=== PATIENT | female | born 1945 | race Caucasian/White ===

== ENCOUNTER → 2018-04-15 07:27 | Outpatient (CLI) | payer OTHER, SELFPAY ==
[2018-04-15 09:43] LABS: Alanine Aminotransferase 28 IU/L (9-52); Albumin 4.1 g/dL (3.5-5.0); Albumin Globulin Ratio 1.6 (1.0-2.8); Alkaline Phosphatase 50 U/L (38-126); Aspartate Aminotransferase 19 IU/L (14-36); BUN Creatinine Ratio 22.9 (6-22); Bilirubin Total 0.3 mg/dL (0.2-1.3); Blood Urea Nitrogen 16 mg/dL (7-17); Calcium 9.8 mg/dL (8.4-10.2); Carbon Dioxide 34 mmol/L (22-32); Chloride 104 mmol/L (98-107); Cholesterol 151 mg/dL (140-199); Estimated Glomerular Filt Rate > 60.0 mL/min (>60); Globulin 2.5 g/dL (1.7-4.1); Glucose 93 mg/dL (80-110); HDL Cholesterol 65 mg/dL (40-60); HEMOLYSIS < 15 (0-50); LDL Cholesterol Calculated 77 mg/dL (<100); Potassium 5.3 mmol/L (3.4-5.1); Sodium 145 mmol/L (137-145); Total Protein 6.6 g/dL (6.3-8.2); Triglycerides 46 mg/dL (35-150)
== END ==
PROVIDERS: PCP Family Medicine; Visit Provider Family Medicine
DX: Z79.899 Other long term (current) drug therapy (principal); E78.5 Hyperlipidemia, unspecified
CPT/HCPCS: 36415; 80053; 80061

== ENCOUNTER → 2018-12-25 10:29 | Outpatient (CLI) | payer OTHER, SELFPAY | PROVIDERS: PCP Student in an Organized Health Care Education/Training Program; Visit Provider Student in an Organized Health Care Education/Training Program | DX: Z13.820 Encounter for screening for osteoporosis (principal); M85.832 Other specified disorders of bone density and structure, left forearm; Z78.0 Asymptomatic menopausal state | CPT/HCPCS: 77080 ==

== ENCOUNTER 2019-04-06 09:22 | Emergency (ER) | payer OTHER, SELFPAY ==
[2019-04-06 09:39] VITALS: BP 125/101; PULSE 80; RESP 18; TEMP 36.7; O2SAT 100
--- NOTE | 2019-04-06 10:09 | DI.CT.S_ITS ---
PROCEDURE: CT HEAD/BRAIN WO CON INDICATIONS: headache w/ nausea and vomiting, remote h/o trauma TECHNIQUE: Noncontrast 4.5 mm thick angled axial sections acquired from the foramen magnum to the vertex, with coronal and sagittal reformats. For radiation dose reduction, the following was used: automated exposure control, adjustment of mA and/or kV according to patient size. COMPARISON: None. FINDINGS: Image quality: Excellent. There is large right frontoparietal extra-axial hemorrhage, probably subdural in nature. This measures up to 2.0 cm in maximum thickness. There is mixed attenuation, with acute blood seen on image 20 series 2 and possibly subacute blood in the remainder of the collection. There is associated mass effect and leftward midline shift measuring approximately 5 mm. Basal cisterns remain grossly patent. There is partial effacement of the right frontal horn. Skull and face: Calvarium and visualized facial bones appear intact, without suspicious lesions. Sinuses: Visualized sinuses and mastoids are clear. IMPRESSION: Large right frontoparietal subdural hematoma, with mixed attenuation suggesting acute on possibly subacute age. Associated mass effect and leftward midline shift as above. Partial effacement of the right frontal horn. Critical findings were personally telephoned and discussed with Dr. Jacobsen in the emergency department at 1017 hours on 04/06/19. Dictated by: Gamal Funes M.D. on 04/06/2019 at 10:13 Approved by: Gamal Funes M.D. on 04/06/2019 at 10:19
--- NOTE | 2019-04-06 10:12 | ED_ITS ---
HPI - Headache General Chief Complaint: Headache Stated Complaint: bad headache,throwing up Time Seen by Provider: 04/06/19 09:51 Source: patient Mode of arrival: ambulatory Limitations: no limitations History of Present Illness HPI Narrative: Patient is 73-year-old female on Pradaxa for atrial fibrillation presenting with headache and nausea. She actually states that 2 months ago she fell backwards striking her head quite hard she says she did not pass had a that time but she had persistent vomiting at which time she passed out she said twice while vomiting. She was not evaluated at that time she has not had any headaches since then. She started having headaches about 5 days ago she was in [place] she had to travel back to [place] cause her was just in the hospital. Headache has progressively gotten worse today she was nauseous and throughout. She has no weakness in she got some numbness and tingling in her fingertips no vision changes no facial drooping. She denies any chest pain or shortness of breath. Related Data Home Medications Medication Instructions Recorded Confirmed Probiotic 1 cap PO DAILY #0 07/26/17 04/06/19 digestive enzymes 1 cap PO AC #0 08/16/17 04/06/19 atorvastatin 20 mg tablet 20 mg PO QPM 02/04/18 04/06/19 Resmed Airsense 10 CPAP #1 ea 12/25/18 04/06/19 dofetilide 250 mcg capsule 250 mcg PO Q12H cap 12/25/18 04/06/19 Calcium With D 1 tab PO BID 04/06/19 04/06/19 acetaminophen 1,000 mg PO Q6H PRN 04/06/19 04/06/19 diltiazem HCl 180 mg PO DAILY 04/06/19 04/06/19 metronidazole 1 applic TOPICAL BID 04/06/19 04/06/19 Previous Rx's Medication Instructions Recorded dabigatran etexilate 150 mg capsule 150 mg PO BID #180 cap 12/08/18 Allergies Allergy/AdvReac Type Severity Reaction Status Date / Time lactose Allergy Unknown Verified 04/06/19 09:42 Review of Systems Review of Systems ROS Unobtainable: All systems reviewed & are unremarkable except as noted in HPI and below Constitutional Denies chills, Denies fever(s), Reports headache(s), Denies lethargy and Reports weakness ENT Ears, Nose, Mouth, and Throat: Denies change in voice, Denies vertigo, Denies dizziness, Reports headache(s), Denies neck pain and Denies sore throat Cardiovascular Reports irregular heart rhythm, Denies dyspnea and Denies dyspnea on exertion Respiratory Denies cough, Denies dyspnea, Denies dyspnea on exertion and Denies wheezing Gastrointestinal Gastrointestinal: Denies abdominal pain, Denies change in bowel habits, Denies diarrhea, Reports nausea and Reports vomiting Genitourinary Denies hematuria, Denies flank pain, Denies urinary incontinence and Denies urinary urgency Musculoskeletal Denies neck pain, Denies numbness and Reports tingling Integumentary/Breasts Denies pruritus, Denies erythema, Denies rash and Denies wounds Neurologic Denies confusion, Denies vertigo, Denies dizziness, Reports headache(s), Denies numbness, Reports tingling, Denies tremor(s) and Reports weakness Psychiatric Denies confusion Allergic/Immunologic Denies wheezing [facility] Medical History Obstructive sleep apnea of adult (Chronic) Primary insomnia (Chronic) Snoring (Inactive ~1995) Insomnia (Chronic 11/29/16) GERD (gastroesophageal reflux disease) (Chronic) Heart palpitations (Chronic 2005) Hyperlipidemia (Chronic) Rosacea (Chronic) Scoliosis (Chronic 1961) Surgical History History of left cataract surgery (Resolved 11/12/12) History of right cataract surgery (Resolved 10/29/12) History of spinal surgery (Resolved 1961) Family History Father Heart disease Mother Pneumonia Brother No problems noted. Sister No problems noted. Family/Other No problems noted. Family/Other No problems noted. Social History Smoking Status: Never smoker alcohol intake: current Family History Father Heart disease Mother Pneumonia Brother No problems noted. Sister No problems noted. Family/Other No problems noted. Family/Other No problems noted. Social History Smoking Status: Never smoker alcohol intake: current Exam Initial Vital Signs Initial Vital Signs: Vital Signs Temperature 98.1 F 04/06/19 09:39 Pulse Rate 80 04/06/19 09:39 Respiratory Rate 18 04/06/19 09:39 Blood Pressure 125/101 H 04/06/19 09:39 Pulse Oximetry 100 04/06/19 09:39 GENERAL: Alert female and in no acute distress. HEENT: Head atraumatic, no abrasions no crepitations no depression EOMI, pupils reactive, face symmetric, CARDIOVASCULAR: Regular rate and rhythm without murmurs, rubs or gallops. RESPIRATORY: Breath sounds equal bilaterally, no wheezes rales or rhonchi. ABDOMEN: Soft, nontender. Normoactive bowel sounds all 4 quadrants. No guarding or rebound. EXTREMITIES: Normal range of motion, no clubbing or edema. Neurovascularly intact NEUROLOGICAL: Alert and oriented x4.Normal gait and speech. Cranial nerves II through XII grossly intact. Good [id number]-[id number], good qyec-pr-crct, strength equal bilaterally, no dysarthria or aphasia, sensation in tact to soft touch bilaterally, no visual changes, no facial droop SKIN: Warm, dry, no laceration, no petechiae, no rashes or lesions. Scores NIH Stroke Scale Level of Conciousness: Alert, keenly responsive Ask month/age: Answers both questions correctly. Open/close eyes, close hand: Performs both tasks correctly Best gaze horizontal: Normal Visual hooper: No visual loss Facial palsy: Normal symetrical movement Left arm drift: No drift for full 10 sec Right arm drift: No drift for full 10 sec Left leg drift: No drift for full 10 sec Right leg drift: No drift for full 10 sec Limb ataxia: Absent Sensory on face/arms/legs: Normal, no sensory loss Best language: No aphasia, normal Dysarthria: Normal Extinction or inattention: No abnormality Total NIH Stroke scale score: 0 Course Orders Ordered: ED Orders 04/06/19 10:09 CT head/brain wo con Stat 04/06/19 10:25 Complete Blood Count AUTO DIFF Stat Comprehensive Metabolic Panel Stat Partial Thromboplastin Time Stat Prothrombin Time INR Stat Discontinued Medications Hydromorphone HCl (Dilaudid) 0.5 mg IV NOW ONE Stop: 04/06/19 10:13 Last Admin: 04/06/19 11:03 Dose: 0.5 mg Sodium Chloride (Normal Saline 0.9%) 1,000 mls @ 1,000 mls/hr IV BOLUS ONE Stop: 04/06/19 11:11 Last Infusion: 04/06/19 11:17 Dose: 1,000 mls/hr Admin: 04/06/19 10:55 Dose: 1,000 mls/hr Idarucizumab (Praxbind) 5 gm IV NOW ONE Stop: 04/06/19 10:31 Last Admin: 04/06/19 10:44 Dose: 5 gm Ondansetron HCl (Zofran) 4 mg IV NOW ONE Stop: 04/06/19 10:13 Last Admin: 04/06/19 11:03 Dose: 4 mg Vital Signs - 8 hr 04/06/19 11:02 Pulse Rate 78 Respiratory Rate 15 Blood Pressure [Right Arm] 134/79 Pulse Oximetry 98 MDM - Headache Lab Data Attestation: I reviewed the patient's lab results. Result diagrams: 04/06/19 10:25 04/06/19 10:25 Lab Results 04/06/19 04/06/19 04/06/19 Range/Units 10:25 10:25 10:25 WBC 8.3 (4.5-11.0) X10^3/uL RBC 4.45 (4.0-5.2) X10^6/uL Hgb 12.8 (12.0-16.0) g/dL Hct 39.1 (36-46) % MCV 87.7 (80-100) fL MCH 28.8 (26-34) PG MCHC 32.9 (30-36) % RDW 14.7 (11.6-14.8) % Plt Count 205 (150-400) X10^3/uL Neut % (Auto) 85.2 H (50-75) % Lymph % (Auto) 10.3 L (25-40) % [place] % (Auto) 4.0 (3-14) % Eos % (Auto) 0.1 L (2-4) % Baso % (Auto) 0.4 (0-2) % Neut # (Auto) 7100 H (9160-4576) /uL Lymph # (Auto) 900 L (5078-6532) /uL [place] # (Auto) 300 (0-900) /uL Eos # (Auto) 0 (0-450) /uL Baso # (Auto) 0 (0-100) /uL PT 14.1 H (10.1-12.7) SECONDS INR 1.2 (0.9-1.3) APTT 43 H (26.4-36.2) SECONDS Sodium 138 (137-145) mmol/L Potassium 3.8 (3.4-5.1) mmol/L Chloride 100 (98-107) mmol/L Carbon Dioxide 27 (22-32) mmol/L BUN 14 (7-17) mg/dL Creatinine 0.70 (0.52-1.04) mg/dL Estimated GFR > 60.0 (>60) mL/min BUN/Creatinine Ratio 20.0 (6-22) Glucose 120 H (80-110) mg/dL Calcium 9.3 (8.4-10.2) mg/dL Total Bilirubin 0.5 (0.2-1.3) mg/dL AST 15 (14-36) IU/L ALT 21 (9-52) IU/L Alkaline Phosphatase 50 (38-126) U/L Total Protein 7.1 (6.3-8.2) g/dL Albumin 4.2 (3.5-5.0) g/dL Globulin 2.9 (1.7-4.1) g/dL Albumin/Globulin Ratio 1.4 (1.0-2.8) Imaging Data CT scan - head: Radiologist's impression: PROCEDURE: CT HEAD/BRAIN WO CON INDICATIONS: headache w/ nausea and vomiting, remote h/o trauma TECHNIQUE: Noncontrast 4.5 mm thick angled axial sections acquired from the foramen magnum to the vertex, with coronal and sagittal reformats. For radiation dose reduction, the following was used: automated exposure control, adjustment of mA and/or kV according to patient size. COMPARISON: None. FINDINGS: Image quality: Excellent. There is large right frontoparietal extra-axial hemorrhage, probably subdural in nature. This measures up to 2.0 cm in maximum thickness. There is mixed attenuation, with acute blood seen on image 20 series 2 and possibly subacute blood in the remainder of the collection. There is associated mass effect and leftward midline shift measuring approximately 5 mm. Basal cisterns remain grossly patent. There is partial effacement of the right frontal horn. Skull and face: Calvarium and visualized facial bones appear intact, without suspicious lesions. Sinuses: Visualized sinuses and mastoids are clear. IMPRESSION: Large right frontoparietal subdural hematoma, with mixed attenuation suggesting acute on possibly subacute age. Associated mass effect and leftward midline shift as above. Partial effacement of the right frontal horn. Critical findings were personally telephoned and discussed with Dr. Jacobsen in the emergency department at 1017 hours on 04/06/19. Dictated by: Gamal Funes M.D. on 04/06/2019 at 10:13 Approved by: Gamal Funes M.D. on 04/06/2019 at 10:19 MDM Narrative Medical decision making narrative: Dr. Anaya at [place] ED has been updated on patient's neurologic status and head CT results. Request praxabind, and [facility] ppily accepts patient for transfer. Praxabind started in ED. Airlift was called patient has 5 mm of shift discussed with patient mode of transport air lift in [place] agrees to go by airlift Critical Care Time Critical Care Time: Yes Total Critical Care Time: 30 Attestation: The high probability of a clinically significant, sudden or life threatening deterioration of the neurovascular system(s) required my full and direct attention, intervention and personal management. The aggregate critical care time was [45] minutes. This time is in addition to time spent performing reported procedures but includes the following: [x] Data Review and interpretation [x] Patient assessment and monitoring of vital signs [x] Documentation [x] Medication orders and management Discharge Plan Departure Patient Disposition: [facility] Clinical Impression: Intracranial hemorrhage Discharge Date/Time: 04/06/19 11:17 Interventions: ED Discharge Assessment Last Done: 04/06/19 11:16 Prescriptions: No Action Probiotic 1 cap PO DAILY Qty: 0 RF: 0 digestive enzymes 1 cap PO AC Qty: 0 RF: 0 Pradaxa 150 mg capsule 150 mg PO BID Qty: 180 RF: 1 diltiazem HCl 180 mg Capsule,Extended Release 24hr 180 mg PO DAILY RF: 0 metronidazole 1 % Gel 1 applic TOPICAL BID RF: 0 acetaminophen 500 mg Capsule 1,000 mg PO Q6H PRN (Reason: Headache) RF: 0 Calcium With D 1 tab PO BID RF: 0 atorvastatin 20 mg tablet 20 mg PO QPM RF: 0 dofetilide 250 mcg capsule 250 mcg PO Q12H RF: 0 Resmed Airsense 10 CPAP Qty: 1 RF: 0 Referrals: Anthony Walton MD [Primary Care Provider] -
[2019-04-06 10:29] VITALS: BP 134/69; PULSE 81; RESP 18; O2SAT 98
[2019-04-06 10:35] LABS: Add Manual Diff / Slide Review NO; Basophils Absolute Auto 0 /uL (0-100); Basophils Percent Auto 0.4 % (0-2); Eosinophils Absolute Auto 0 /uL (0-450); Eosinophils Percent Auto 0.1 % (2-4); Hematocrit 39.1 % (36-46); Hemoglobin 12.8 g/dL (12.0-16.0); Lymphocytes Absolute Auto 900 /uL (1100-4500); Lymphocytes Percent Auto 10.3 % (25-40); Mean Corpuscular HGB Conc 32.9 % (30-36); Mean Corpuscular Hemoglobin 28.8 PG (26-34); Mean Corpuscular Volume 87.7 fL (80-100); Monocytes Absolute Auto 300 /uL (0-900); Neutrophils Absolute Auto 7100 /uL (1500-7000); Neutrophils Percent Auto 85.2 % (50-75); Platelet Count 205 X10^3/uL (150-400); Red Blood Cell Count 4.45 X10^6/uL (4.0-5.2); Red Cell Distribution Width 14.7 % (11.6-14.8); White Blood Cell Count 8.3 X10^3/uL (4.5-11.0)
[2019-04-06 10:41] LABS: INR 1.2 (0.9-1.3); Prothrombin Time 14.1 SECONDS (10.1-12.7)
[2019-04-06 10:44] LABS: PTT Partial Thromboplastin Tim 43 SECONDS (26.4-36.2)
[2019-04-06] MEDS: IDARUCIZUMAB 2.5 GM/50 ML VIAL 5 GM IV (10:44)
[2019-04-06 10:55] LABS: Alanine Aminotransferase 21 IU/L (9-52); Albumin 4.2 g/dL (3.5-5.0); Albumin Globulin Ratio 1.4 (1.0-2.8); Alkaline Phosphatase 50 U/L (38-126); Aspartate Aminotransferase 15 IU/L (14-36); Bilirubin Total 0.5 mg/dL (0.2-1.3); Blood Urea Nitrogen 14 mg/dL (7-17); Calcium 9.3 mg/dL (8.4-10.2); Carbon Dioxide 27 mmol/L (22-32); Chloride 100 mmol/L (98-107); Estimated Glomerular Filt Rate > 60.0 mL/min (>60); Globulin 2.9 g/dL (1.7-4.1); Glucose 120 mg/dL (80-110); HEMOLYSIS < 15 (0-50); Potassium 3.8 mmol/L (3.4-5.1); Sodium 138 mmol/L (137-145); Total Protein 7.1 g/dL (6.3-8.2)
[2019-04-06] MEDS: SODIUM CHLORIDE 0.9% 1,000 ML 1000 ML IV (10:55)
[2019-04-06 11:02] VITALS: BP 134/79; PULSE 78; RESP 15; O2SAT 98
[2019-04-06] MEDS: HYDROMORPHONE 1 MG INJ 0.5 MG IV (11:03)
[2019-04-06] MEDS: ONDANSETRON 4 MG/2 ML INJ IV (11:03)
== END 2019-04-06 11:17 | disposition short-term general hospital (02) ==
PROVIDERS: Emergency Provider Emergency Medicine; PCP Student in an Organized Health Care Education/Training Program
DX: I62.9 Nontraumatic intracranial hemorrhage, unspecified (principal)
CPT/HCPCS: 36591; 70450; 80053; 85025; 85610; 85730; 96374; 96375; 99283; 99284; J1170; J2405

== ENCOUNTER → 2019-04-28 15:48 | Outpatient (CLI) | payer OTHER, SELFPAY ==
--- NOTE | 2019-04-28 15:51 | DI.CT.S_ITS ---
PROCEDURE: CT HEAD/BRAIN WO CON INDICATIONS: recent subdural hematoma, now having headaches TECHNIQUE: Noncontrast 4.5 mm thick angled axial sections acquired from the foramen magnum to the vertex, with coronal and sagittal reformats. For radiation dose reduction, the following was used: automated exposure control, adjustment of mA and/or kV according to patient size. COMPARISON: [facility], CT, CT HEAD/BRAIN WO CON, 04/06/2019, 9:55. FINDINGS: Image quality: Excellent. CSF spaces: Basal cisterns are patent. No extra-axial fluid collections. The ventricles are symmetric in size and shape. Brain: No intracranial bleeds or masses. There is cerebral volume loss for age, with resultant ventricular and sulcal prominence. There are periventricular and deep white matter chronic small vessel ischemic changes. There is intracranial internal carotid artery atherosclerosis. Skull and face: Calvarium and visualized facial bones appear intact, without suspicious lesions. Right frontal post craniotomy changes. Sinuses: Visualized sinuses and mastoids are clear. IMPRESSION: No acute intracranial process. Dictated by: Gamal Funes M.D. on 04/28/2019 at 16:25 Approved by: Gamal Funes M.D. on 04/28/2019 at 16:29
== END ==
PROVIDERS: Visit Provider Family Medicine
DX: R51 Headache (principal); Z86.79 Personal history of other diseases of the circulatory system
CPT/HCPCS: 70450

== ENCOUNTER → 2020-02-09 07:58 | Outpatient (CLI) | payer OTHER, SELFPAY ==
[2020-02-09 09:55] LABS: Alanine Aminotransferase 28 IU/L (<35); Albumin 4.4 g/dL (3.5-5.0); Albumin Globulin Ratio 1.8 (1.0-2.8); Alkaline Phosphatase 49 U/L (38-126); Aspartate Aminotransferase 25 IU/L (14-36); BUN Creatinine Ratio 33.3 (6-22); Bilirubin Total 0.6 mg/dL (0.2-1.3); Blood Urea Nitrogen 23 mg/dL (7-17); Calcium 9.7 mg/dL (8.4-10.2); Carbon Dioxide 29 mmol/L (22-32); Chloride 102 mmol/L (98-107); Cholesterol 165 mg/dL (140-199); Estimated Glomerular Filt Rate > 60.0 mL/min (>60); Globulin 2.5 g/dL (1.7-4.1); Glucose 98 mg/dL (80-110); HDL Cholesterol 55 mg/dL (40-60); HEMOLYSIS < 15 (0-50); LDL Cholesterol Calculated 89 mg/dL (<100); Potassium 4.4 mmol/L (3.4-5.1); Sodium 139 mmol/L (137-145); Total Protein 6.9 g/dL (6.3-8.2); Triglycerides 103 mg/dL (35-150)
== END ==
PROVIDERS: PCP Nurse Practitioner; Referring Provider Internal Medicine Cardiovascular Disease; Visit Provider Internal Medicine Cardiovascular Disease
DX: I48.0 Paroxysmal atrial fibrillation (principal); E78.00 Pure hypercholesterolemia, unspecified
CPT/HCPCS: 36415; 80053; 80061

== ENCOUNTER → 2020-02-25 08:10 | Outpatient (CLI) | payer OTHER, SELFPAY ==
[2020-02-26 15:40] LABS: Fecal Immunochemical Test Negative (Negative)
== END ==
PROVIDERS: PCP Nurse Practitioner; Referring Provider Nurse Practitioner; Visit Provider Nurse Practitioner
DX: Z12.11 Encounter for screening for malignant neoplasm of colon (principal)
CPT/HCPCS: 82274

== ENCOUNTER 2020-04-13 08:15 | Outpatient (RCR) | payer OTHER, SELFPAY ==
--- NOTE | 2020-01-14 16:10 | PT.OIE ---
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) GERD (gastroesophageal reflux disease) (Chronic) Heart palpitations (Chronic 2005) Hyperlipidemia (Chronic) Obstructive sleep apnea of adult (Chronic) Primary insomnia (Chronic) Rosacea (Chronic) Scoliosis (Chronic 1961) Snoring (Chronic ~1995) Subdural hematoma (Acute) Past Surgical History (Last Reviewed 01/01/20 @ 17:14 by SRINIVAS Grove) History of left cataract surgery (Resolved 11/12/12) History of right cataract surgery (Resolved 10/29/12) History of spinal surgery (Resolved 1961) Visit Care Team Role Provider Type SRINIVAS Grove Attending Provider Advanced Furniture Rental Consultant Primary Care Provider Referring Provider Specialty: [facility] Address: [address] [place] [address], [facility] Email: [email or web address] Physical Therapy Initial Evaluation PT-OP-A Visit Information Start: 01/14/20 08:07 Freq: Status: Active Protocol: Document 01/14/20 10:30 SAK (Rec: 01/14/20 11:18 SAK [id number]) Out-Patient Physical Therapy Visit Information Visit Information Visit Type Initial Evaluation Visit Start Time 10:30 Visit Stop Time 11:25 Total Visit Minutes 55 Visit Number 1 Number of BIN TRIPPER OPERATOR Visits 0 Evaluation Information Evaluation Date 01/14/20 Precautions Precautions cardiac post polio Darden rods 8 level thoracic spine (surgery at 15 y/o) Bipap for sleep PT-OP-B Current Condition Start: 01/14/20 08:07 Freq: Status: Active Protocol: Document 01/14/20 10:30 SAK (Rec: 01/14/20 11:18 SAK [id number]) Current Condition History of Current Condition Onset Date 1 year Current Complaints bilateral shoulder pain History of Current Condition Reports function-limiting shoulder pain off and on for years but worsened about a year ago. Did body work previously, reports that could make it go away. Has been bad for over a year. Last had it worked on with massage therapist, went away for about a month but wasn't able to continue with massage therapy. Physician prescribed Tylenol every 4 hours recently which patient reports minimizes the pain. Occasional heat or ice but not regularly. 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 Also reports has to hold her right arm stationary at her chest when taking walks due to pain with it hanging at her side. Sometimes tingling left shoulder blade. Prior Treatments and Tests no x-ray or MRI. prior massage therapy Treatment Goals Patient/Caregiver Goals minimize her pain, learn what she can do to decrease her pain Prior Functional Status Baseline Function- ADL's Independent Baseline Function- Mobility Independent Baseline Function- Work/School indep Current Functional Impairments (Reported) Functional Limitations- ADL's painful with use of right UE all tasks without medication Functional Limitations- Work/School retired PT-OP-C Subjective Start: 01/14/20 08:07 Freq: Status: Active Protocol: Document 01/14/20 10:30 SAK (Rec: 01/14/20 16:07 [facility] [id number]) Patient Questionnaires Quick Dash- Upper Extremity Quick Dash UE Score 30 Quick Dash UE Impairment 20 to 39% Impaired (Score 20- 39) OP-PT Pain Assessment Pain Assessment Grid Paper Pain Assessment Grid Completed Yes Location right UE Pain Location Details lateral shoulder at RC insertion with radiation into entire upper arm A/P Intensity 5 Scale Used Numeric (1 - 10) Description Aching,Throbbing Frequency Intermittent Pain Aggravating Factors Activity Other Pain Aggravating Factors reaching Pain Alleviating Factors Medication Home Pain Medication Use Pain Medications Used Yes Home Pain Medication Frequency every 4 hours Patient Goal no medication PT-OP-E Functional Tests Start: 01/14/20 08:07 Freq: Status: Active Protocol: Document 01/14/20 10:30 SAK (Rec: 01/14/20 16:07 [facility] [id number]) Functional Tests Apley's Scratch Test Action 1- Left posterior shoulder Action 1- Right anterior shoulder with pain posterior R GH Action 2- Left T2 Action 2- Right lateral ear Action 3- Left L2 Action 3- Right sacrum PT-OP-F Manual Assessment Start: 01/14/20 08:07 Freq: Status: Active Protocol: Document 01/14/20 10:30 SAK (Rec: 01/14/20 16:07 SAK [id number]) Manual Assessments Soft Tissue Assessment Soft Tissue Mobility Assessment moderate tightness bilateral upper traps PT-OP-H Neuro Start: 01/14/20 08:07 Freq: Status: Active Protocol: Document 01/14/20 10:30 SAK (Rec: 01/14/20 16:07 SAK [id number]) Sensation Evaluation Gross Sensation Gross Sensation WNL PT-OP-J Posture/Palpation/Skin Start: 01/14/20 08:07 Freq: Status: Active Protocol: Document 01/14/20 10:30 SAK (Rec: 01/14/20 16:07 SAK [id number]) Posture Evaluation Position Sitting Head/C-Spine Posture Forward Head T-Spine Posture Flattened Shoulder Posture (L) Rounded,(R) Rounded,(L) Forward,(R) Forward,(R) Elevated Scapula Posture (R) Protracted Arm Posture (L) Internally Rotated,(R) Internally Rotated Palpation Assessment Location One Palpation Location right shoulder RC insertion Palpation Findings Tenderness PT-OP-K Range of Motion Start: 01/14/20 08:07 Freq: Status: Active Protocol: Document 01/14/20 10:30 SAK (Rec: 01/14/20 16:07 SAK [id number]) Cervical Spine Range of Motion Cervical Spine Active Rotation Left 45 Rotation Right 50 Lateral Flexion Left 30 Lateral Flexion Right 35 ROM Limitations Soft Tissue Tightness Shoulder Goniometric Range of Motion Shoulder Right Active Shoulder ROM WFL No Flexion 160 Abduction 155 Horizontal Abduction 40 External Rotation at 0 degrees Abduction 45 Internal Rotation Behind Back (text) sacrum left Shoulder ROM WFL Yes Testing Position Sitting Shoulder ROM Limitations Shoulder ROM Limitations Soft Tissue Tightness,Pain PT-OP-L Special Tests Start: 01/14/20 08:07 Freq: Status: Active Protocol: Document 01/14/20 10:30 SAK (Rec: 01/14/20 16:09 SAK [id number]) Special Tests Shoulder Special Tests Speed's Biceps Test Results negative abelino Elevation Impingement Test Results negative abelino Drop Arm Rotator Cuff Test Results negative abelino Belly Press Test Results negative abelino PT-OP-M Strength Start: 01/14/20 08:07 Freq: Status: Active Protocol: Document 01/14/20 10:30 SAK (Rec: 01/14/20 16:07 SAK [id number]) Shoulder Strength Shoulder Manual Muscle Testing Right Flexion 4- Good- Extension 4- Good- External Rotation 4 Good Internal Rotation 4- Good- Left Flexion 5 Normal Extension 5 Normal Abduction (C5) 5 Normal External Rotation 4+ Good+ Internal Rotation 5 Normal Elbow/Forearm Strength Elbow and Forearm Manual Muscle Testing abelino Flexion (C6) 5 Normal Extension (C7) 5 Normal PT-OP-Q Treatments Start: 01/14/20 08:07 Freq: Status: Active Protocol: Document 01/14/20 10:30 SAK (Rec: 01/14/20 16:07 SAK [id number]) Self-Care/Home Management Treatment Education Patient Education Home Exercise Program Other Education use of heat and ice PT-OP-R Modalities Start: 01/14/20 08:07 Freq: Status: Active Protocol: Document 01/14/20 10:30 SAK (Rec: 01/14/20 16:07 SAK [id number]) Hot Pack/Cold Pack Treatment Hot Pack Location c/s and right shoulder Patient Position Hooklying Treatment Duration (minutes) 15 Patient Tolerance Good PT-OP-T Assessment and Plan Start: 01/14/20 08:07 Freq: Status: Active Protocol: Document 01/14/20 10:30 SAK (Rec: 01/14/20 16:07 [facility] [id number]) Physical Therapy Assessment Rehab Potential Rehabilitation Potential Good Evaluation Complexity Number of Personal Factors/Comorbidities 1-2 Number of Body Systems Impaired 3 Clinical Presentation at Evaluation Evolving Impairments Impairments Functional Activities,Pain, Posture,Strength Goals Four Impairment weakness right UE Finance Broker Goal (LTG) 5/5 muscle strength right shoulder, patient independent and compliant to HEP LTG Duration 02/22/20 Three Impairment postural dysfunction Finance Broker Goal (LTG) Patient to demonstrate good understanding of neutral postural alignment, be independent with postural correction exercises and able to self correct. LTG Duration 02/22/20 Two Impairment difficulty reaching overhead, behind her back for ADL's and daily activity Halfway Goal (LTG) Patient will be able to do all functional activities with her right UE with minimal to no pain LTG Duration 02/22/20 One Impairment pain right shoulder Halfway Goal (LTG) Decrease pain to no greater than 2/10 without pain medications LTG Duration 02/22/20 Assessment Summary Assessment Patient presents with function -limiting pain in her right shoulder which appears due to repetitive stress of prior work activities as well as postural dysfunction and habitual movement patterns. Would benefit from PT to address these impairments, decrease her pain, and improve her right shoulder function. She is highly motivated and agreed with treatment plan. Physical Therapy Plan Frequency and Duration Frequency of Treatment 2x/Week Duration of Treatment 6 wks Plan of Care Start Date 01/14/20 Plan of Care End Date 02/25/20 Therapeutic Interventions Therapeutic Interventions Home Exercise Program,Joint Mobilizations,Manual Therapy, Neuromuscular Re-education, Patient/Caregiver Education, Self-Care/Home Management,Soft Tissue Mobilization,Taping, Therapeutic Activities, Therapeutic Exercises Modalities Cold Pack/Ice Massage,Electric Stimulation,Hot Packs, Iontophoresis,Ultrasound Next Visit Focus/Plan Next Note Type Treatment Note Next Visit Plan Review HEP, further ROM, strengthening, and postural retraining ex and activities. Possible manual treatment to improve soft tissue mobility in right shoulder and scapular region
--- NOTE | 2020-01-14 16:10 | PT.OPPOC ---
Physical, Occupational & Speech Therapy At [facility] Current Diagnoses Pain in right shoulder (01/14/20) Pain in left shoulder (01/14/20) Abnormal posture (01/14/20) Weakness (01/14/20) Visit Care Team Role Provider Type SRINIVAS [place] Attending Provider Advanced Software Sales Consultant Primary Care Provider Referring Provider Specialty: [facility] Practice Address: [address] [place] [address], [facility] Email: [email or web address] Plan Of Care PT-OP-T Assessment and Plan Start: 01/14/20 08:07 Freq: Status: Active Protocol: Document 01/14/20 10:30 SAK (Rec: 01/14/20 16:07 SAK [id number]) Physical Therapy Assessment Rehab Potential Rehabilitation Potential Good Evaluation Complexity Number of Personal Factors/Comorbidities 1-2 Number of Body Systems Impaired 3 Clinical Presentation at Evaluation Evolving Impairments Impairments Functional Activities,Pain, Posture,Strength Goals Four Impairment weakness right UE Student Development Coordinator Goal (LTG) 5/5 muscle strength right shoulder, patient independent and compliant to HEP LTG Duration 02/22/20 Three Impairment postural dysfunction Snf Goal (LTG) Patient to demonstrate good understanding of neutral postural alignment, be independent with postural correction exercises and able to self correct. LTG Duration 02/22/20 Two Impairment difficulty reaching overhead, behind her back for ADL's and daily activity Student Development Coordinator Goal (LTG) Patient will be able to do all functional activities with her right UE with minimal to no pain LTG Duration 02/22/20 One Impairment pain right shoulder Student Development Coordinator Goal (LTG) Decrease pain to no greater than 2/10 without pain medications LTG Duration 02/22/20 Assessment Summary Assessment Patient presents with function -limiting pain in her right shoulder which appears due to repetitive stress of prior work activities as well as postural dysfunction and habitual movement patterns. Would benefit from PT to address these impairments, decrease her pain, and improve her right shoulder function. She is highly motivated and agreed with treatment plan. Physical Therapy Plan Frequency and Duration Frequency of Treatment 2x/Week Duration of Treatment 6 wks Plan of Care Start Date 01/14/20 Plan of Care End Date 02/25/20 Therapeutic Interventions Therapeutic Interventions Home Exercise Program,Joint Mobilizations,Manual Therapy, Neuromuscular Re-education, Patient/Caregiver Education, Self-Care/Home Management,Soft Tissue Mobilization,Taping, Therapeutic Activities, Therapeutic Exercises Modalities Cold Pack/Ice Massage,Electric Stimulation,Hot Packs, Iontophoresis,Ultrasound Next Visit Focus/Plan Next Note Type Treatment Note Next Visit Plan Review HEP, further ROM, strengthening, and postural retraining ex and activities. Possible manual treatment to improve soft tissue mobility in right shoulder and scapular region Plan of Care Dates Plan of Care Start Date 01/14/20 Plan of Care End Date 02/25/20 Electronically Signed by: Janet Leone, PT 01/14/20 5027 Please Sign and Return: I have reviewed this Plan of Care and certify that the skilled therapy services above are required to meet the patient?s needs. Physician Signature Date Printed Name and Credentials Clinical Instructor Signature Printed Name and Credentials
--- NOTE | 2020-01-19 09:05 | PT.OTN ---
Current Diagnoses Pain in right shoulder (01/19/20) Pain in left shoulder (01/19/20) Abnormal posture (01/19/20) Weakness (01/19/20) Physical Therapy Treatment Note PT-OP-A Visit Information Start: 01/14/20 08:07 Freq: Status: Active Protocol: Document 01/19/20 08:16 HH (Rec: 01/19/20 09:04 HH [id number]) Out-Patient Physical Therapy Visit Information Visit Information Visit Type Treatment Note Visit Start Time 08:16 Visit Stop Time 09:00 Total Visit Minutes 44 Visit Number 2 Number of ONLINE TUTOR Visits 0 PT-OP-B Current Condition Start: 01/14/20 08:07 Freq: Status: Active Protocol: Document 01/14/20 10:30 SAK (Rec: 01/14/20 11:18 SAK [id number]) Current Condition History of Current Condition Onset Date 1 year Current Complaints bilateral shoulder pain History of Current Condition Reports function-limiting shoulder pain off and on for years but worsened about a year ago. Did body work previously, reports that could make it go away. Has been bad for over a year. Last had it worked on with massage therapist, went away for about a month but wasn't able to continue with massage therapy. Physician prescribed Tylenol every 4 hours recently which patient reports minimizes the pain. Occasional heat or ice but not regularly. 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 Also reports has to hold her right arm stationary at her chest when taking walks due to pain with it hanging at her side. Sometimes tingling left shoulder blade. Prior Treatments and Tests no x-ray or MRI. prior massage therapy Treatment Goals Patient/Caregiver Goals minimize her pain, learn what she can do to decrease her pain Prior Functional Status Baseline Function- ADL's Independent Baseline Function- Mobility Independent Baseline Function- Work/School indep Current Functional Impairments (Reported) Functional Limitations- ADL's painful with use of right UE all tasks without medication Functional Limitations- Work/School retired PT-OP-C Subjective Start: 01/14/20 08:07 Freq: Status: Active Protocol: Document 01/19/20 08:16 HH (Rec: 01/19/20 09:04 [id number]) OP-PT Subjective Patient Comments Patient Comments Joann been doing all my exercies and i feel less tight now. So i started feeling better espeically my chest area. Patient Reported Progress Improving PT-OP-E Functional Tests Start: 01/14/20 08:07 Freq: Status: Active Protocol: Document 01/14/20 10:30 SAK (Rec: 01/14/20 16:07 SAK [id number]) Functional Tests Apley's Scratch Test Action 1- Left posterior shoulder Action 1- Right anterior shoulder with pain posterior R GH Action 2- Left T2 Action 2- Right lateral ear Action 3- Left L2 Action 3- Right sacrum PT-OP-F Manual Assessment Start: 01/14/20 08:07 Freq: Status: Active Protocol: Document 01/14/20 10:30 SAK (Rec: 01/14/20 16:07 SAK [id number]) Manual Assessments Soft Tissue Assessment Soft Tissue Mobility Assessment moderate tightness bilateral upper traps PT-OP-H Neuro Start: 01/14/20 08:07 Freq: Status: Active Protocol: Document 01/14/20 10:30 SAK (Rec: 01/14/20 16:07 SAK [id number]) Sensation Evaluation Gross Sensation Gross Sensation WNL PT-OP-J Posture/Palpation/Skin Start: 01/14/20 08:07 Freq: Status: Active Protocol: Document 01/14/20 10:30 SAK (Rec: 01/14/20 16:07 SAK [id number]) Posture Evaluation Position Sitting Head/C-Spine Posture Forward Head T-Spine Posture Flattened Shoulder Posture (L) Rounded,(R) Rounded,(L) Forward,(R) Forward,(R) Elevated Scapula Posture (R) Protracted Arm Posture (L) Internally Rotated,(R) Internally Rotated Palpation Assessment Location One Palpation Location right shoulder RC insertion Palpation Findings Tenderness PT-OP-K Range of Motion Start: 01/14/20 08:07 Freq: Status: Active Protocol: Document 01/14/20 10:30 SAK (Rec: 01/14/20 16:07 SAK [id number]) Cervical Spine Range of Motion Cervical Spine Active Rotation Left 45 Rotation Right 50 Lateral Flexion Left 30 Lateral Flexion Right 35 ROM Limitations Soft Tissue Tightness Shoulder Goniometric Range of Motion Shoulder Right Active Shoulder ROM WFL No Flexion 160 Abduction 155 Horizontal Abduction 40 External Rotation at 0 degrees Abduction 45 Internal Rotation Behind Back (text) sacrum left Shoulder ROM WFL Yes Testing Position Sitting Shoulder ROM Limitations Shoulder ROM Limitations Soft Tissue Tightness,Pain PT-OP-L Special Tests Start: 01/14/20 08:07 Freq: Status: Active Protocol: Document 01/14/20 10:30 SAK (Rec: 01/14/20 16:09 SAK [id number]) Special Tests Shoulder Special Tests Speed's Biceps Test Results negative abelino Elevation Impingement Test Results negative abelino Drop Arm Rotator Cuff Test Results negative abelino Belly Press Test Results negative abelino PT-OP-M Strength Start: 01/14/20 08:07 Freq: Status: Active Protocol: Document 01/14/20 10:30 SAK (Rec: 01/14/20 16:07 SAK [id number]) Shoulder Strength Shoulder Manual Muscle Testing Right Flexion 4- Good- Extension 4- Good- External Rotation 4 Good Internal Rotation 4- Good- Left Flexion 5 Normal Extension 5 Normal Abduction (C5) 5 Normal External Rotation 4+ Good+ Internal Rotation 5 Normal Elbow/Forearm Strength Elbow and Forearm Manual Muscle Testing abelino Flexion (C6) 5 Normal Extension (C7) 5 Normal PT-OP-Q Treatments Start: 01/14/20 08:07 Freq: Status: Active Protocol: Document 01/19/20 08:16 HH (Rec: 01/19/20 09:04 HH [id number]) Therapeutic Exercises Sitting Exercises shoulder shrugs Side bilateral Comments for HEP trunk extensio/ flexion Sitting Exercise Name with deep breathing, for HEP Side bilateral Comments inhale with t/s extension, exhale during flexion cervical lateral flexion Sitting Exercise Name use UE to stretch Side bilateral Comments for HEP Standing Exercises tennis ball release Standing Exercise Name on RTC Side right Comments for HEP Manual Therapy Treatment Soft Tissue Mobilization upper trap Body Location R upper trap Mobilization Type Sustained Pressure,Trigger Point Release Intensity/Depth Moderate Body Position Supine Comments with lateral cervical flexion R RTC Body Location infraspinatus and teres minor Mobilization Type Myofascial Release,Sustained Pressure,Trigger Point Release Intensity/Depth Moderate Body Position Sidelying Comments infraspinatus and teres minor refer pain to middle delt noted with pressure on infraspinatus PT-OP-R Modalities Start: 01/14/20 08:07 Freq: Status: Active Protocol: Document 01/14/20 10:30 SAK (Rec: 01/14/20 16:07 SAK [id number]) Hot Pack/Cold Pack Treatment Hot Pack Location c/s and right shoulder Patient Position Hooklying Treatment Duration (minutes) 15 Patient Tolerance Good PT-OP-T Assessment and Plan Start: 01/14/20 08:07 Freq: Status: Active Protocol: Document 01/19/20 08:16 HH (Rec: 01/19/20 09:04 HH [id number]) Physical Therapy Assessment Goals Four Impairment weakness right UE Manager Nc Goal (LTG) 5/5 muscle strength right shoulder, patient independent and compliant to HEP LTG Duration 02/22/20 Three Impairment postural dysfunction Manager Nc Goal (LTG) Patient to demonstrate good understanding of neutral postural alignment, be independent with postural correction exercises and able to self correct. LTG Duration 02/22/20 Two Impairment difficulty reaching overhead, behind her back for ADL's and daily activity Intermediate Goal (LTG) Patient will be able to do all functional activities with her right UE with minimal to no pain LTG Duration 02/22/20 One Impairment pain right shoulder Intermediate Goal (LTG) Decrease pain to no greater than 2/10 without pain medications LTG Duration 02/22/20 Assessment Summary Assessment Pt reports of improved symptoms since evaluation who has been compliant to HEP. There's noticeable referred pain pattern to middle deltoid region with manual pressure on infrapsinatus and teres mnor. Educated pt to use tennis ball release at home. Reviewed ex with pt today and added T/S extension and flexion with deep breathing ex . Pt stated she wants to reduce her visits to once a week due to high copay. Canceled her appt this week adn will cont monitor her progress. Physical Therapy Plan Next Visit Focus/Plan Next Note Type Treatment Note Next Visit Plan Review HEP, further ROM, strengthening, and postural retraining ex and activities. Possible manual treatment to improve soft tissue mobility in right shoulder and scapular region
--- NOTE | 2020-01-26 17:19 | PT.OTN ---
Current Diagnoses Pain in right shoulder (01/26/20) Pain in left shoulder (01/26/20) Abnormal posture (01/26/20) Weakness (01/26/20) Physical Therapy Treatment Note PT-OP-A Visit Information Start: 01/14/20 08:07 Freq: Status: Active Protocol: Document 01/26/20 14:31 SAK (Rec: 01/26/20 15:22 SAK [id number]) Out-Patient Physical Therapy Visit Information Visit Information Visit Type Treatment Note Visit Start Time 14:30 Visit Stop Time 09:00 Total Visit Minutes 44 Visit Number 3 Number of RESIDENTIAL SALES CONSULTANT Visits 0 Evaluation Information Evaluation Date 01/14/20 Precautions Precautions cardiac post polio Darden rods 8 level thoracic spine (surgery at 15 y/o) Bipap for sleep PT-OP-B Current Condition Start: 01/14/20 08:07 Freq: Status: Active Protocol: Document 01/14/20 10:30 SAK (Rec: 01/14/20 11:18 SAK [id number]) Current Condition History of Current Condition Onset Date 1 year Current Complaints bilateral shoulder pain History of Current Condition Reports function-limiting shoulder pain off and on for years but worsened about a year ago. Did body work previously, reports that could make it go away. Has been bad for over a year. Last had it worked on with massage therapist, went away for about a month but wasn't able to continue with massage therapy. Physician prescribed Tylenol every 4 hours recently which patient reports minimizes the pain. Occasional heat or ice but not regularly. 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 Also reports has to hold her right arm stationary at her chest when taking walks due to pain with it hanging at her side. Sometimes tingling left shoulder blade. Prior Treatments and Tests no x-ray or MRI. prior massage therapy Treatment Goals Patient/Caregiver Goals minimize her pain, learn what she can do to decrease her pain Prior Functional Status Baseline Function- ADL's Independent Baseline Function- Mobility Independent Baseline Function- Work/School indep Current Functional Impairments (Reported) Functional Limitations- ADL's painful with use of right UE all tasks without medication Functional Limitations- Work/School retired PT-OP-C Subjective Start: 01/14/20 08:07 Freq: Status: Active Protocol: Document 01/26/20 14:31 SAK (Rec: 01/26/20 17:17 SAK [id number]) OP-PT Subjective Patient Comments Patient Comments Increased pain today for first time since started PT, unsure of reason. Can't identify any activities or positioning of her body that may have irritated her shoulder. PT-OP-E Functional Tests Start: 01/14/20 08:07 Freq: Status: Active Protocol: Document 01/14/20 10:30 SAK (Rec: 01/14/20 16:07 SAK [id number]) Functional Tests Apley's Scratch Test Action 1- Left posterior shoulder Action 1- Right anterior shoulder with pain posterior R GH Action 2- Left T2 Action 2- Right lateral ear Action 3- Left L2 Action 3- Right sacrum PT-OP-F Manual Assessment Start: 01/14/20 08:07 Freq: Status: Active Protocol: Document 01/14/20 10:30 SAK (Rec: 01/14/20 16:07 SAK [id number]) Manual Assessments Soft Tissue Assessment Soft Tissue Mobility Assessment moderate tightness bilateral upper traps PT-OP-H Neuro Start: 01/14/20 08:07 Freq: Status: Active Protocol: Document 01/14/20 10:30 SAK (Rec: 01/14/20 16:07 SAK [id number]) Sensation Evaluation Gross Sensation Gross Sensation WNL PT-OP-J Posture/Palpation/Skin Start: 01/14/20 08:07 Freq: Status: Active Protocol: Document 01/14/20 10:30 SAK (Rec: 01/14/20 16:07 SAK [id number]) Posture Evaluation Position Sitting Head/C-Spine Posture Forward Head T-Spine Posture Flattened Shoulder Posture (L) Rounded,(R) Rounded,(L) Forward,(R) Forward,(R) Elevated Scapula Posture (R) Protracted Arm Posture (L) Internally Rotated,(R) Internally Rotated Palpation Assessment Location One Palpation Location right shoulder RC insertion Palpation Findings Tenderness PT-OP-K Range of Motion Start: 01/14/20 08:07 Freq: Status: Active Protocol: Document 01/14/20 10:30 SAK (Rec: 01/14/20 16:07 SAK [id number]) Cervical Spine Range of Motion Cervical Spine Active Rotation Left 45 Rotation Right 50 Lateral Flexion Left 30 Lateral Flexion Right 35 ROM Limitations Soft Tissue Tightness Shoulder Goniometric Range of Motion Shoulder Right Active Shoulder ROM WFL No Flexion 160 Abduction 155 Horizontal Abduction 40 External Rotation at 0 degrees Abduction 45 Internal Rotation Behind Back (text) sacrum left Shoulder ROM WFL Yes Testing Position Sitting Shoulder ROM Limitations Shoulder ROM Limitations Soft Tissue Tightness,Pain PT-OP-L Special Tests Start: 01/14/20 08:07 Freq: Status: Active Protocol: Document 01/14/20 10:30 [facility] (Rec: 01/14/20 16:09 [facility] [id number]) Special Tests Shoulder Special Tests Speed's Biceps Test Results negative abelino Elevation Impingement Test Results negative abelino Drop Arm Rotator Cuff Test Results negative abelino Belly Press Test Results negative abelino PT-OP-M Strength Start: 01/14/20 08:07 Freq: Status: Active Protocol: Document 01/14/20 10:30 [facility] (Rec: 01/14/20 16:07 [facility] [id number]) Shoulder Strength Shoulder Manual Muscle Testing Right Flexion 4- Good- Extension 4- Good- External Rotation 4 Good Internal Rotation 4- Good- Left Flexion 5 Normal Extension 5 Normal Abduction (C5) 5 Normal External Rotation 4+ Good+ Internal Rotation 5 Normal Elbow/Forearm Strength Elbow and Forearm Manual Muscle Testing abelino Flexion (C6) 5 Normal Extension (C7) 5 Normal PT-OP-Q Treatments Start: 01/14/20 08:07 Freq: Status: Active Protocol: Document 01/26/20 14:31 [facility] (Rec: 01/26/20 15:22 [facility] [id number]) Therapeutic Exercises Supine Exercises beach arms stretch Reps/Minutes 2x30 Pec minor stretch Equipment Used tower rol along spine Reps/Minutes 2x30 pec stretch Supine Exercise Name pec major Equipment Used towel roll along spine Reps/Minutes 2x 30 Sitting Exercises shoulder shrugs Side bilateral Comments for HEP trunk extensio/ flexion Sitting Exercise Name with deep breathing, for HEP Side bilateral Comments inhale with t/s extension, exhale during flexion cervical lateral flexion Sitting Exercise Name use UE to stretch Side bilateral Comments for HEP Standing Exercises shoulder ER Resistance 10x Equipment Used L1 TB Comments at wall row, shoulder ext Equipment Used L1 Reps/Minutes 10x postural isometric Reps/Minutes 7x tennis ball release Standing Exercise Name on RTC Side right Comments for HEP Manual Therapy Treatment Soft Tissue Mobilization upper trap Body Location R upper trap Mobilization Type Sustained Pressure,Trigger Point Release Intensity/Depth Moderate Body Position Supine Comments with lateral cervical flexion R RTC Body Location infraspinatus and teres minor Mobilization Type Myofascial Release,Sustained Pressure,Trigger Point Release Intensity/Depth Moderate Body Position Sidelying Comments infraspinatus and teres minor refer pain to middle delt noted with pressure on infraspinatus Joint Mobilizations 1 Joint scapular mobilization Direction abd/add/elev/depr Grade III Body Position Sidelying Self-Care/Home Management Treatment Education Patient Education Home Exercise Program,Posture PT-OP-R Modalities Start: 01/14/20 08:07 Freq: Status: Active Protocol: Document 01/14/20 10:30 SAK (Rec: 01/14/20 16:07 [facility] [id number]) Hot Pack/Cold Pack Treatment Cold Pack Location right shoulder Patient Position Sidelying Treatment Duration (minutes) 10 Patient Tolerance Good Hot Pack Location c/s and right shoulder Patient Position Hooklying Treatment Duration (minutes) 15 Patient Tolerance Good PT-OP-T Assessment and Plan Start: 01/14/20 08:07 Freq: Status: Active Protocol: Document 01/26/20 14:31 SAK (Rec: 01/26/20 15:22 [facility] [id number]) Physical Therapy Assessment Goals Four Impairment weakness right UE Category Analyst Goal (LTG) 5/5 muscle strength right shoulder, patient independent and compliant to HEP LTG Duration 02/22/20 Three Impairment postural dysfunction Category Analyst Goal (LTG) Patient to demonstrate good understanding of neutral postural alignment, be independent with postural correction exercises and able to self correct. LTG Duration 02/22/20 Two Impairment difficulty reaching overhead, behind her back for ADL's and daily activity Category Analyst Goal (LTG) Patient will be able to do all functional activities with her right UE with minimal to no pain LTG Duration 02/22/20 One Impairment pain right shoulder Category Analyst Goal (LTG) Decrease pain to no greater than 2/10 without pain medications LTG Duration 02/22/20 Assessment Summary Assessment Patient c/o increased soreness today for first day since last seen (prior to PT session ). Has difficulty with self- correction of posture, needs moderate verbal and manual cues. Used patient cell phone camera for visual feedback. Updated HEP. Physical Therapy Plan Frequency and Duration Frequency of Treatment 2x/Week Duration of Treatment 6 wks Plan of Care Start Date 01/14/20 Plan of Care End Date 02/25/20 Therapeutic Interventions Therapeutic Interventions Home Exercise Program,Joint Mobilizations,Manual Therapy, Neuromuscular Re-education, Patient/Caregiver Education, Self-Care/Home Management,Soft Tissue Mobilization,Taping, Therapeutic Activities, Therapeutic Exercises Modalities Cold Pack/Ice Massage,Electric Stimulation,Hot Packs, Iontophoresis,Ultrasound Next Visit Focus/Plan Next Note Type Treatment Note Next Visit Plan Evaluate response to today's treatment. Consider further manual treatment, evaluate performance of HEP, continue postural re-education.
--- NOTE | 2020-02-02 16:48 | PT.OTN ---
Current Diagnoses Pain in right shoulder (02/02/20) Pain in left shoulder (02/02/20) Abnormal posture (02/02/20) Weakness (02/02/20) Physical Therapy Treatment Note PT-OP-A Visit Information Start: 01/14/20 08:07 Freq: Status: Active Protocol: Document 02/02/20 14:33 SAK (Rec: 02/02/20 15:19 SAK [id number]) Out-Patient Physical Therapy Visit Information Visit Information Visit Type Treatment Note Visit Start Time 14:30 Visit Stop Time 09:00 Total Visit Minutes 59 Visit Number 4 Number of SPRAY OPERATOR Visits 0 Evaluation Information Evaluation Date 01/14/20 Precautions Precautions cardiac post polio Darden rods 8 level thoracic spine (surgery at 15 y/o) Bipap for sleep PT-OP-B Current Condition Start: 01/14/20 08:07 Freq: Status: Active Protocol: Document 01/14/20 10:30 SAK (Rec: 01/14/20 11:18 SAK [id number]) Current Condition History of Current Condition Onset Date 1 year Current Complaints bilateral shoulder pain History of Current Condition Reports function-limiting shoulder pain off and on for years but worsened about a year ago. Did body work previously, reports that could make it go away. Has been bad for over a year. Last had it worked on with massage therapist, went away for about a month but wasn't able to continue with massage therapy. Physician prescribed Tylenol every 4 hours recently which patient reports minimizes the pain. Occasional heat or ice but not regularly. 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 Also reports has to hold her right arm stationary at her chest when taking walks due to pain with it hanging at her side. Sometimes tingling left shoulder blade. Prior Treatments and Tests no x-ray or MRI. prior massage therapy Treatment Goals Patient/Caregiver Goals minimize her pain, learn what she can do to decrease her pain Prior Functional Status Baseline Function- ADL's Independent Baseline Function- Mobility Independent Baseline Function- Work/School indep Current Functional Impairments (Reported) Functional Limitations- ADL's painful with use of right UE all tasks without medication Functional Limitations- Work/School retired PT-OP-C Subjective Start: 01/14/20 08:07 Freq: Status: Active Protocol: Document 02/02/20 14:33 SAK (Rec: 02/02/20 16:46 SAK [id number]) OP-PT Subjective Patient Comments Patient Comments Had grandchildren visiting so didn't do much exercise. Pain worst when reaching out to side PT-OP-E Functional Tests Start: 01/14/20 08:07 Freq: Status: Active Protocol: Document 01/14/20 10:30 SAK (Rec: 01/14/20 16:07 SAK [id number]) Functional Tests Apley's Scratch Test Action 1- Left posterior shoulder Action 1- Right anterior shoulder with pain posterior R GH Action 2- Left T2 Action 2- Right lateral ear Action 3- Left L2 Action 3- Right sacrum PT-OP-F Manual Assessment Start: 01/14/20 08:07 Freq: Status: Active Protocol: Document 01/14/20 10:30 SAK (Rec: 01/14/20 16:07 SAK [id number]) Manual Assessments Soft Tissue Assessment Soft Tissue Mobility Assessment moderate tightness bilateral upper traps PT-OP-H Neuro Start: 01/14/20 08:07 Freq: Status: Active Protocol: Document 01/14/20 10:30 SAK (Rec: 01/14/20 16:07 SAK [id number]) Sensation Evaluation Gross Sensation Gross Sensation WNL PT-OP-J Posture/Palpation/Skin Start: 01/14/20 08:07 Freq: Status: Active Protocol: Document 01/14/20 10:30 SAK (Rec: 01/14/20 16:07 SAK [id number]) Posture Evaluation Position Sitting Head/C-Spine Posture Forward Head T-Spine Posture Flattened Shoulder Posture (L) Rounded,(R) Rounded,(L) Forward,(R) Forward,(R) Elevated Scapula Posture (R) Protracted Arm Posture (L) Internally Rotated,(R) Internally Rotated Palpation Assessment Location One Palpation Location right shoulder RC insertion Palpation Findings Tenderness PT-OP-K Range of Motion Start: 01/14/20 08:07 Freq: Status: Active Protocol: Document 01/14/20 10:30 SAK (Rec: 01/14/20 16:07 SAK [id number]) Cervical Spine Range of Motion Cervical Spine Active Rotation Left 45 Rotation Right 50 Lateral Flexion Left 30 Lateral Flexion Right 35 ROM Limitations Soft Tissue Tightness Shoulder Goniometric Range of Motion Shoulder Right Active Shoulder ROM WFL No Flexion 160 Abduction 155 Horizontal Abduction 40 External Rotation at 0 degrees Abduction 45 Internal Rotation Behind Back (text) sacrum left Shoulder ROM WFL Yes Testing Position Sitting Shoulder ROM Limitations Shoulder ROM Limitations Soft Tissue Tightness,Pain PT-OP-L Special Tests Start: 01/14/20 08:07 Freq: Status: Active Protocol: Document 01/14/20 10:30 [facility] (Rec: 01/14/20 16:09 [facility] [id number]) Special Tests Shoulder Special Tests Speed's Biceps Test Results negative abelino Elevation Impingement Test Results negative abelino Drop Arm Rotator Cuff Test Results negative abelino Belly Press Test Results negative abelino PT-OP-M Strength Start: 01/14/20 08:07 Freq: Status: Active Protocol: Document 01/14/20 10:30 [facility] (Rec: 01/14/20 16:07 [facility] [id number]) Shoulder Strength Shoulder Manual Muscle Testing Right Flexion 4- Good- Extension 4- Good- External Rotation 4 Good Internal Rotation 4- Good- Left Flexion 5 Normal Extension 5 Normal Abduction (C5) 5 Normal External Rotation 4+ Good+ Internal Rotation 5 Normal Elbow/Forearm Strength Elbow and Forearm Manual Muscle Testing abelino Flexion (C6) 5 Normal Extension (C7) 5 Normal PT-OP-Q Treatments Start: 01/14/20 08:07 Freq: Status: Active Protocol: Document 02/02/20 14:33 SAK (Rec: 02/02/20 15:19 SAK [id number]) Therapeutic Exercises Supine Exercises serratus punch Reps/Minutes 10x posture press Reps/Minutes 5x beach arms press Reps/Minutes 5x Sitting Exercises pulleys Sitting Exercise Name shoulder flex, scaption Side right Reps/Minutes 10x shoulder shrugs Side bilateral Comments for HEP trunk extensio/ flexion Sitting Exercise Name with deep breathing, for HEP Side bilateral Comments inhale with t/s extension, exhale during flexion Standing Exercises shoulder IR Resistance L1 Reps/Minutes 10x shoulder ER Resistance 10x Equipment Used L1 TB Comments at wall row, shoulder ext Equipment Used L1 Reps/Minutes 10x postural isometric Reps/Minutes 7x Manual Therapy Treatment Soft Tissue Mobilization upper trap Body Location R upper trap Mobilization Type Sustained Pressure,Trigger Point Release Intensity/Depth Moderate Body Position Supine Comments with lateral cervical flexion R RTC Body Location infraspinatus and teres minor Mobilization Type Myofascial Release,Sustained Pressure,Trigger Point Release Intensity/Depth Moderate Body Position Sidelying Comments infraspinatus and teres minor refer pain to middle delt noted with pressure on infraspinatus Joint Mobilizations 1 Joint scapular mobilization Direction abd/add/elev/depr Grade III Body Position Sidelying PT-OP-R Modalities Start: 01/14/20 08:07 Freq: Status: Active Protocol: Document 02/02/20 14:33 [facility] (Rec: 02/02/20 16:46 [facility] [id number]) Hot Pack/Cold Pack Treatment Cold Pack Location right shoulder Patient Position Sidelying Treatment Duration (minutes) 10 Patient Tolerance Good PT-OP-T Assessment and Plan Start: 01/14/20 08:07 Freq: Status: Active Protocol: Document 02/02/20 14:33 [facility] (Rec: 02/02/20 15:19 [facility] [id number]) Physical Therapy Assessment Goals Four Impairment weakness right UE Group Home Goal (LTG) 5/5 muscle strength right shoulder, patient independent and compliant to HEP LTG Duration 02/22/20 Three Impairment postural dysfunction Group Home Goal (LTG) Patient to demonstrate good understanding of neutral postural alignment, be independent with postural correction exercises and able to self correct. LTG Duration 02/22/20 Two Impairment difficulty reaching overhead, behind her back for ADL's and daily activity Operations Associate Goal (LTG) Patient will be able to do all functional activities with her right UE with minimal to no pain LTG Duration 02/22/20 One Impairment pain right shoulder Operations Associate Goal (LTG) Decrease pain to no greater than 2/10 without pain medications LTG Duration 02/22/20 Physical Therapy Plan Frequency and Duration Frequency of Treatment 2x/Week Duration of Treatment 6 wks Plan of Care Start Date 01/14/20 Plan of Care End Date 02/25/20 Therapeutic Interventions Therapeutic Interventions Home Exercise Program,Joint Mobilizations,Manual Therapy, Neuromuscular Re-education, Patient/Caregiver Education, Self-Care/Home Management,Soft Tissue Mobilization,Taping, Therapeutic Activities, Therapeutic Exercises Modalities Cold Pack/Ice Massage,Electric Stimulation,Hot Packs, Iontophoresis,Ultrasound Next Visit Focus/Plan Next Note Type Treatment Note Next Visit Plan Evaluate response to today's treatment. Consider further manual treatment, evaluate performance of HEP, continue postural re-education. try sidelying ER.
--- NOTE | 2020-02-02 16:48 | PT.OTN ---
Current Diagnoses Pain in right shoulder (02/02/20) Pain in left shoulder (02/02/20) Abnormal posture (02/02/20) Weakness (02/02/20) Physical Therapy Treatment Note PT-OP-A Visit Information Start: 01/14/20 08:07 Freq: Status: Active Protocol: Document 02/02/20 14:33 SAK (Rec: 02/02/20 15:19 SAK [id number]) Out-Patient Physical Therapy Visit Information Visit Information Visit Type Treatment Note Visit Start Time 14:30 Visit Stop Time 09:00 Total Visit Minutes 59 Visit Number 4 Number of CLINICAL SUPPORT TECH Visits 0 Evaluation Information Evaluation Date 01/14/20 Precautions Precautions cardiac post polio Darden rods 8 level thoracic spine (surgery at 15 y/o) Bipap for sleep PT-OP-B Current Condition Start: 01/14/20 08:07 Freq: Status: Active Protocol: Document 01/14/20 10:30 SAK (Rec: 01/14/20 11:18 SAK [id number]) Current Condition History of Current Condition Onset Date 1 year Current Complaints bilateral shoulder pain History of Current Condition Reports function-limiting shoulder pain off and on for years but worsened about a year ago. Did body work previously, reports that could make it go away. Has been bad for over a year. Last had it worked on with massage therapist, went away for about a month but wasn't able to continue with massage therapy. Physician prescribed Tylenol every 4 hours recently which patient reports minimizes the pain. Occasional heat or ice but not regularly. 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 Also reports has to hold her right arm stationary at her chest when taking walks due to pain with it hanging at her side. Sometimes tingling left shoulder blade. Prior Treatments and Tests no x-ray or MRI. prior massage therapy Treatment Goals Patient/Caregiver Goals minimize her pain, learn what she can do to decrease her pain Prior Functional Status Baseline Function- ADL's Independent Baseline Function- Mobility Independent Baseline Function- Work/School indep Current Functional Impairments (Reported) Functional Limitations- ADL's painful with use of right UE all tasks without medication Functional Limitations- Work/School retired PT-OP-C Subjective Start: 01/14/20 08:07 Freq: Status: Active Protocol: Document 02/02/20 14:33 SAK (Rec: 02/02/20 16:46 SAK [id number]) OP-PT Subjective Patient Comments Patient Comments Had grandchildren visiting so didn't do much exercise. Pain worst when reaching out to side PT-OP-E Functional Tests Start: 01/14/20 08:07 Freq: Status: Active Protocol: Document 01/14/20 10:30 SAK (Rec: 01/14/20 16:07 SAK [id number]) Functional Tests Apley's Scratch Test Action 1- Left posterior shoulder Action 1- Right anterior shoulder with pain posterior R GH Action 2- Left T2 Action 2- Right lateral ear Action 3- Left L2 Action 3- Right sacrum PT-OP-F Manual Assessment Start: 01/14/20 08:07 Freq: Status: Active Protocol: Document 01/14/20 10:30 SAK (Rec: 01/14/20 16:07 SAK [id number]) Manual Assessments Soft Tissue Assessment Soft Tissue Mobility Assessment moderate tightness bilateral upper traps PT-OP-H Neuro Start: 01/14/20 08:07 Freq: Status: Active Protocol: Document 01/14/20 10:30 SAK (Rec: 01/14/20 16:07 SAK [id number]) Sensation Evaluation Gross Sensation Gross Sensation WNL PT-OP-J Posture/Palpation/Skin Start: 01/14/20 08:07 Freq: Status: Active Protocol: Document 01/14/20 10:30 SAK (Rec: 01/14/20 16:07 SAK [id number]) Posture Evaluation Position Sitting Head/C-Spine Posture Forward Head T-Spine Posture Flattened Shoulder Posture (L) Rounded,(R) Rounded,(L) Forward,(R) Forward,(R) Elevated Scapula Posture (R) Protracted Arm Posture (L) Internally Rotated,(R) Internally Rotated Palpation Assessment Location One Palpation Location right shoulder RC insertion Palpation Findings Tenderness PT-OP-K Range of Motion Start: 01/14/20 08:07 Freq: Status: Active Protocol: Document 01/14/20 10:30 SAK (Rec: 01/14/20 16:07 SAK [id number]) Cervical Spine Range of Motion Cervical Spine Active Rotation Left 45 Rotation Right 50 Lateral Flexion Left 30 Lateral Flexion Right 35 ROM Limitations Soft Tissue Tightness Shoulder Goniometric Range of Motion Shoulder Right Active Shoulder ROM WFL No Flexion 160 Abduction 155 Horizontal Abduction 40 External Rotation at 0 degrees Abduction 45 Internal Rotation Behind Back (text) sacrum left Shoulder ROM WFL Yes Testing Position Sitting Shoulder ROM Limitations Shoulder ROM Limitations Soft Tissue Tightness,Pain PT-OP-L Special Tests Start: 01/14/20 08:07 Freq: Status: Active Protocol: Document 01/14/20 10:30 [facility] (Rec: 01/14/20 16:09 [facility] [id number]) Special Tests Shoulder Special Tests Speed's Biceps Test Results negative abelino Elevation Impingement Test Results negative abelino Drop Arm Rotator Cuff Test Results negative abelino Belly Press Test Results negative abelino PT-OP-M Strength Start: 01/14/20 08:07 Freq: Status: Active Protocol: Document 01/14/20 10:30 [facility] (Rec: 01/14/20 16:07 [facility] [id number]) Shoulder Strength Shoulder Manual Muscle Testing Right Flexion 4- Good- Extension 4- Good- External Rotation 4 Good Internal Rotation 4- Good- Left Flexion 5 Normal Extension 5 Normal Abduction (C5) 5 Normal External Rotation 4+ Good+ Internal Rotation 5 Normal Elbow/Forearm Strength Elbow and Forearm Manual Muscle Testing abelino Flexion (C6) 5 Normal Extension (C7) 5 Normal PT-OP-Q Treatments Start: 01/14/20 08:07 Freq: Status: Active Protocol: Document 02/02/20 14:33 SAK (Rec: 02/02/20 15:19 SAK [id number]) Therapeutic Exercises Supine Exercises serratus punch Reps/Minutes 10x posture press Reps/Minutes 5x beach arms press Reps/Minutes 5x Sitting Exercises pulleys Sitting Exercise Name shoulder flex, scaption Side right Reps/Minutes 10x shoulder shrugs Side bilateral Comments for HEP trunk extensio/ flexion Sitting Exercise Name with deep breathing, for HEP Side bilateral Comments inhale with t/s extension, exhale during flexion Standing Exercises shoulder IR Resistance L1 Reps/Minutes 10x shoulder ER Resistance 10x Equipment Used L1 TB Comments at wall row, shoulder ext Equipment Used L1 Reps/Minutes 10x postural isometric Reps/Minutes 7x Manual Therapy Treatment Soft Tissue Mobilization upper trap Body Location R upper trap Mobilization Type Sustained Pressure,Trigger Point Release Intensity/Depth Moderate Body Position Supine Comments with lateral cervical flexion R RTC Body Location infraspinatus and teres minor Mobilization Type Myofascial Release,Sustained Pressure,Trigger Point Release Intensity/Depth Moderate Body Position Sidelying Comments infraspinatus and teres minor refer pain to middle delt noted with pressure on infraspinatus Joint Mobilizations 1 Joint scapular mobilization Direction abd/add/elev/depr Grade III Body Position Sidelying PT-OP-R Modalities Start: 01/14/20 08:07 Freq: Status: Active Protocol: Document 02/02/20 14:33 [facility] (Rec: 02/02/20 16:46 [facility] [id number]) Hot Pack/Cold Pack Treatment Cold Pack Location right shoulder Patient Position Sidelying Treatment Duration (minutes) 10 Patient Tolerance Good PT-OP-T Assessment and Plan Start: 01/14/20 08:07 Freq: Status: Active Protocol: Document 02/02/20 14:33 [facility] (Rec: 02/02/20 15:19 [facility] [id number]) Physical Therapy Assessment Goals Four Impairment weakness right UE Fdc Goal (LTG) 5/5 muscle strength right shoulder, patient independent and compliant to HEP LTG Duration 02/22/20 Three Impairment postural dysfunction Fdc Goal (LTG) Patient to demonstrate good understanding of neutral postural alignment, be independent with postural correction exercises and able to self correct. LTG Duration 02/22/20 Two Impairment difficulty reaching overhead, behind her back for ADL's and daily activity Spray Booth Operator Goal (LTG) Patient will be able to do all functional activities with her right UE with minimal to no pain LTG Duration 02/22/20 One Impairment pain right shoulder Spray Booth Operator Goal (LTG) Decrease pain to no greater than 2/10 without pain medications LTG Duration 02/22/20 Physical Therapy Plan Frequency and Duration Frequency of Treatment 2x/Week Duration of Treatment 6 wks Plan of Care Start Date 01/14/20 Plan of Care End Date 02/25/20 Therapeutic Interventions Therapeutic Interventions Home Exercise Program,Joint Mobilizations,Manual Therapy, Neuromuscular Re-education, Patient/Caregiver Education, Self-Care/Home Management,Soft Tissue Mobilization,Taping, Therapeutic Activities, Therapeutic Exercises Modalities Cold Pack/Ice Massage,Electric Stimulation,Hot Packs, Iontophoresis,Ultrasound Next Visit Focus/Plan Next Note Type Treatment Note Next Visit Plan Evaluate response to today's treatment. Consider further manual treatment, evaluate performance of HEP, continue postural re-education. try sidelying ER.
--- NOTE | 2020-02-09 10:08 | PT.OTN ---
Current Diagnoses Pain in right shoulder (02/09/20) Pain in left shoulder (02/09/20) Abnormal posture (02/09/20) Weakness (02/09/20) Physical Therapy Treatment Note PT-OP-A Visit Information Start: 01/14/20 08:07 Freq: Status: Active Protocol: Document 02/09/20 09:01 NIXON (Rec: 02/09/20 10:07 [facility] [id number]) Out-Patient Physical Therapy Visit Information Visit Information Visit Type Treatment Note Visit Start Time 09:00 Visit Stop Time 10:00 Total Visit Minutes 60 Visit Number 5 Number of TRAINING ASSISTANT Visits 0 Evaluation Information Evaluation Date 01/14/20 Precautions Precautions cardiac post polio Darden rods 8 level thoracic spine (surgery at 15 y/o) Bipap for sleep PT-OP-B Current Condition Start: 01/14/20 08:07 Freq: Status: Active Protocol: Document 01/14/20 10:30 NIXON (Rec: 01/14/20 11:18 [facility] [id number]) Current Condition History of Current Condition Onset Date 1 year Current Complaints bilateral shoulder pain History of Current Condition Reports function-limiting shoulder pain off and on for years but worsened about a year ago. Did body work previously, reports that could make it go away. Has been bad for over a year. Last had it worked on with massage therapist, went away for about a month but wasn't able to continue with massage therapy. Physician prescribed Tylenol every 4 hours recently which patient reports minimizes the pain. Occasional heat or ice but not regularly. 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 Also reports has to hold her right arm stationary at her chest when taking walks due to pain with it hanging at her side. Sometimes tingling left shoulder blade. Prior Treatments and Tests no x-ray or MRI. prior massage therapy Treatment Goals Patient/Caregiver Goals minimize her pain, learn what she can do to decrease her pain Prior Functional Status Baseline Function- ADL's Independent Baseline Function- Mobility Independent Baseline Function- Work/School indep Current Functional Impairments (Reported) Functional Limitations- ADL's painful with use of right UE all tasks without medication Functional Limitations- Work/School retired PT-OP-C Subjective Start: 01/14/20 08:07 Freq: Status: Active Protocol: Document 02/09/20 09:01 SAK (Rec: 02/09/20 09:25 SAK [id number]) OP-PT Subjective Patient Comments Patient Comments Starting to see the results of doing the exercises, working hard on aligment and posture. PT-OP-E Functional Tests Start: 01/14/20 08:07 Freq: Status: Active Protocol: Document 01/14/20 10:30 SAK (Rec: 01/14/20 16:07 SAK [id number]) Functional Tests Apley's Scratch Test Action 1- Left posterior shoulder Action 1- Right anterior shoulder with pain posterior R GH Action 2- Left T2 Action 2- Right lateral ear Action 3- Left L2 Action 3- Right sacrum PT-OP-F Manual Assessment Start: 01/14/20 08:07 Freq: Status: Active Protocol: Document 01/14/20 10:30 SAK (Rec: 01/14/20 16:07 SAK [id number]) Manual Assessments Soft Tissue Assessment Soft Tissue Mobility Assessment moderate tightness bilateral upper traps PT-OP-H Neuro Start: 01/14/20 08:07 Freq: Status: Active Protocol: Document 01/14/20 10:30 SAK (Rec: 01/14/20 16:07 SAK [id number]) Sensation Evaluation Gross Sensation Gross Sensation WNL PT-OP-J Posture/Palpation/Skin Start: 01/14/20 08:07 Freq: Status: Active Protocol: Document 01/14/20 10:30 SAK (Rec: 01/14/20 16:07 SAK [id number]) Posture Evaluation Position Sitting Head/C-Spine Posture Forward Head T-Spine Posture Flattened Shoulder Posture (L) Rounded,(R) Rounded,(L) Forward,(R) Forward,(R) Elevated Scapula Posture (R) Protracted Arm Posture (L) Internally Rotated,(R) Internally Rotated Palpation Assessment Location One Palpation Location right shoulder RC insertion Palpation Findings Tenderness PT-OP-K Range of Motion Start: 01/14/20 08:07 Freq: Status: Active Protocol: Document 01/14/20 10:30 SAK (Rec: 01/14/20 16:07 SAK [id number]) Cervical Spine Range of Motion Cervical Spine Active Rotation Left 45 Rotation Right 50 Lateral Flexion Left 30 Lateral Flexion Right 35 ROM Limitations Soft Tissue Tightness Shoulder Goniometric Range of Motion Shoulder Right Active Shoulder ROM WFL No Flexion 160 Abduction 155 Horizontal Abduction 40 External Rotation at 0 degrees Abduction 45 Internal Rotation Behind Back (text) sacrum left Shoulder ROM WFL Yes Testing Position Sitting Shoulder ROM Limitations Shoulder ROM Limitations Soft Tissue Tightness,Pain PT-OP-L Special Tests Start: 01/14/20 08:07 Freq: Status: Active Protocol: Document 01/14/20 10:30 [facility] (Rec: 01/14/20 16:09 [facility] [id number]) Special Tests Shoulder Special Tests Speed's Biceps Test Results negative abelino Elevation Impingement Test Results negative abelino Drop Arm Rotator Cuff Test Results negative abelino Belly Press Test Results negative abelino PT-OP-M Strength Start: 01/14/20 08:07 Freq: Status: Active Protocol: Document 01/14/20 10:30 [facility] (Rec: 01/14/20 16:07 SAK [id number]) Shoulder Strength Shoulder Manual Muscle Testing Right Flexion 4- Good- Extension 4- Good- External Rotation 4 Good Internal Rotation 4- Good- Left Flexion 5 Normal Extension 5 Normal Abduction (C5) 5 Normal External Rotation 4+ Good+ Internal Rotation 5 Normal Elbow/Forearm Strength Elbow and Forearm Manual Muscle Testing abelino Flexion (C6) 5 Normal Extension (C7) 5 Normal PT-OP-Q Treatments Start: 01/14/20 08:07 Freq: Status: Active Protocol: Document 02/09/20 09:01 [facility] (Rec: 02/09/20 09:25 SAK [id number]) Cardio Equipment Recumbent Stepper (Sci-Fit) Duration (Minutes) 5 Resistance 1.5 Seat Position 9 Other emphasis on neutral alignment, postural stab Therapeutic Exercises Supine Exercises shoulder flex Reps/Minutes 10x Comments manual with shoulder distraction serratus punch Reps/Minutes 10x posture press Reps/Minutes 5x Pec minor stretch Reps/Minutes 5x Comments manual with shoulder distr pec stretch Reps/Minutes 5x Comments manual with shoulder distr Sidelying Exercises scapular protraction/retraction Reps/Minutes 10x2 Comments manual then active shoulder ER Reps/Minutes 10 Standing Exercises shoulder IR Resistance L1 Reps/Minutes 10x Comments manual cues shoulder ER Resistance 10x Equipment Used L1 TB Comments manual cues row, shoulder ext Equipment Used L1 Reps/Minutes 10x Comments manual cues Manual Therapy Treatment Soft Tissue Mobilization upper trap Body Location R upper trap Mobilization Type Sustained Pressure,Trigger Point Release Intensity/Depth Moderate Body Position Supine Comments with lateral cervical flexion R RTC Body Location infraspinatus and teres minor Mobilization Type Myofascial Release,Sustained Pressure,Trigger Point Release Intensity/Depth Moderate Body Position Sidelying Comments infraspinatus and teres minor refer pain to middle delt noted with pressure on infraspinatus Joint Mobilizations 2 Joint GH distraction, inf glid, posterior glide Grade III Body Position Supine 1 Joint scapular mobilization Direction abd/add/elev/depr Grade III Body Position Sidelying Self-Care/Home Management Treatment Education Patient Education Home Exercise Program Other Education added self GH distraction sitting in chair with 1-2#. PT-OP-R Modalities Start: 01/14/20 08:07 Freq: Status: Active Protocol: Document 02/09/20 09:01 [facility] (Rec: 02/09/20 10:07 [facility] [id number]) Hot Pack/Cold Pack Treatment Cold Pack Location right shoulder Patient Position Sidelying Treatment Duration (minutes) 10 Patient Tolerance Good PT-OP-T Assessment and Plan Start: 01/14/20 08:07 Freq: Status: Active Protocol: Document 02/09/20 09:01 [facility] (Rec: 02/09/20 10:07 [facility] [id number]) Physical Therapy Assessment Goals Four Impairment weakness right UE Rough Rib Grader Goal (LTG) 5/5 muscle strength right shoulder, patient independent and compliant to HEP LTG Duration 02/22/20 Three Impairment postural dysfunction Rough Rib Grader Goal (LTG) Patient to demonstrate good understanding of neutral postural alignment, be independent with postural correction exercises and able to self correct. LTG Duration 02/22/20 Two Impairment difficulty reaching overhead, behind her back for ADL's and daily activity Rough Rib Grader Goal (LTG) Patient will be able to do all functional activities with her right UE with minimal to no pain LTG Duration 02/22/20 One Impairment pain right shoulder Rough Rib Grader Goal (LTG) Decrease pain to no greater than 2/10 without pain medications LTG Duration 02/22/20 Assessment Summary Assessment Good pain relief with GH mobilizations with improved tolerance for shoulder flex and abduction after. Scapular dyskinesia improving especially with manual cues. Patient continues to require cues for neutral postural alignment and scapular stab. Issued handout for self shoulder distraction after practice; patient demonstrated good understanding Physical Therapy Plan Frequency and Duration Frequency of Treatment 2x/Week Duration of Treatment 6 wks Plan of Care Start Date 01/14/20 Plan of Care End Date 02/25/20 Therapeutic Interventions Therapeutic Interventions Home Exercise Program,Joint Mobilizations,Manual Therapy, Neuromuscular Re-education, Patient/Caregiver Education, Self-Care/Home Management,Soft Tissue Mobilization,Taping, Therapeutic Activities, Therapeutic Exercises Modalities Cold Pack/Ice Massage,Electric Stimulation,Hot Packs, Iontophoresis,Ultrasound Next Visit Focus/Plan Next Note Type Treatment Note Next Visit Plan Further GH and scapular mobilization, scapular stabilization, strengthening progression.
--- NOTE | 2020-02-16 12:24 | PT.OTN ---
Current Diagnoses Pain in right shoulder (02/16/20) Pain in left shoulder (02/16/20) Abnormal posture (02/16/20) Weakness (02/16/20) Physical Therapy Treatment Note PT-OP-A Visit Information Start: 01/14/20 08:07 Freq: Status: Active Protocol: Document 02/16/20 08:50 SAK (Rec: 02/16/20 09:26 [facility]AK [id number]) Out-Patient Physical Therapy Visit Information Visit Information Visit Type Treatment Note Visit Start Time 09:00 Visit Stop Time 10:00 Total Visit Minutes 60 Visit Number 6 Number of PHYSICAL THERAPIST Visits 0 Evaluation Information Evaluation Date 01/14/20 Precautions Precautions cardiac post polio Darden rods 8 level thoracic spine (surgery at 15 y/o) Bipap for sleep PT-OP-B Current Condition Start: 01/14/20 08:07 Freq: Status: Active Protocol: Document 01/14/20 10:30 SAK (Rec: 01/14/20 11:18 SAK [id number]) Current Condition History of Current Condition Onset Date 1 year Current Complaints bilateral shoulder pain History of Current Condition Reports function-limiting shoulder pain off and on for years but worsened about a year ago. Did body work previously, reports that could make it go away. Has been bad for over a year. Last had it worked on with massage therapist, went away for about a month but wasn't able to continue with massage therapy. Physician prescribed Tylenol every 4 hours recently which patient reports minimizes the pain. Occasional heat or ice but not regularly. 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 Also reports has to hold her right arm stationary at her chest when taking walks due to pain with it hanging at her side. Sometimes tingling left shoulder blade. Prior Treatments and Tests no x-ray or MRI. prior massage therapy Treatment Goals Patient/Caregiver Goals minimize her pain, learn what she can do to decrease her pain Prior Functional Status Baseline Function- ADL's Independent Baseline Function- Mobility Independent Baseline Function- Work/School indep Current Functional Impairments (Reported) Functional Limitations- ADL's painful with use of right UE all tasks without medication Functional Limitations- Work/School retired PT-OP-C Subjective Start: 01/14/20 08:07 Freq: Status: Active Protocol: Document 02/16/20 08:50 SAK (Rec: 02/16/20 09:26 SAK [id number]) OP-PT Subjective Patient Comments Patient Comments Increase in pain night after therapy though reports 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 Hasn't had a good week with her arm since then, dull ache today at rest PT-OP-E Functional Tests Start: 01/14/20 08:07 Freq: Status: Active Protocol: Document 01/14/20 10:30 SAK (Rec: 01/14/20 16:07 SAK [id number]) Functional Tests Apley's Scratch Test Action 1- Left posterior shoulder Action 1- Right anterior shoulder with pain posterior R GH Action 2- Left T2 Action 2- Right lateral ear Action 3- Left L2 Action 3- Right sacrum PT-OP-F Manual Assessment Start: 01/14/20 08:07 Freq: Status: Active Protocol: Document 01/14/20 10:30 SAK (Rec: 01/14/20 16:07 SAK [id number]) Manual Assessments Soft Tissue Assessment Soft Tissue Mobility Assessment moderate tightness bilateral upper traps PT-OP-H Neuro Start: 01/14/20 08:07 Freq: Status: Active Protocol: Document 01/14/20 10:30 SAK (Rec: 01/14/20 16:07 SAK [id number]) Sensation Evaluation Gross Sensation Gross Sensation WNL PT-OP-J Posture/Palpation/Skin Start: 01/14/20 08:07 Freq: Status: Active Protocol: Document 01/14/20 10:30 SAK (Rec: 01/14/20 16:07 SAK [id number]) Posture Evaluation Position Sitting Head/C-Spine Posture Forward Head T-Spine Posture Flattened Shoulder Posture (L) Rounded,(R) Rounded,(L) Forward,(R) Forward,(R) Elevated Scapula Posture (R) Protracted Arm Posture (L) Internally Rotated,(R) Internally Rotated Palpation Assessment Location One Palpation Location right shoulder RC insertion Palpation Findings Tenderness PT-OP-K Range of Motion Start: 01/14/20 08:07 Freq: Status: Active Protocol: Document 01/14/20 10:30 SAK (Rec: 01/14/20 16:07 SAK [id number]) Cervical Spine Range of Motion Cervical Spine Active Rotation Left 45 Rotation Right 50 Lateral Flexion Left 30 Lateral Flexion Right 35 ROM Limitations Soft Tissue Tightness Shoulder Goniometric Range of Motion Shoulder Right Active Shoulder ROM WFL No Flexion 160 Abduction 155 Horizontal Abduction 40 External Rotation at 0 degrees Abduction 45 Internal Rotation Behind Back (text) sacrum left Shoulder ROM WFL Yes Testing Position Sitting Shoulder ROM Limitations Shoulder ROM Limitations Soft Tissue Tightness,Pain PT-OP-L Special Tests Start: 01/14/20 08:07 Freq: Status: Active Protocol: Document 01/14/20 10:30 SAK (Rec: 01/14/20 16:09 SAK [id number]) Special Tests Shoulder Special Tests Speed's Biceps Test Results negative abelnio Elevation Impingement Test Results negative abelino Drop Arm Rotator Cuff Test Results negative abelino Belly Press Test Results negative abelino PT-OP-M Strength Start: 01/14/20 08:07 Freq: Status: Active Protocol: Document 01/14/20 10:30 [facility] (Rec: 01/14/20 16:07 [facility] [id number]) Shoulder Strength Shoulder Manual Muscle Testing Right Flexion 4- Good- Extension 4- Good- External Rotation 4 Good Internal Rotation 4- Good- Left Flexion 5 Normal Extension 5 Normal Abduction (C5) 5 Normal External Rotation 4+ Good+ Internal Rotation 5 Normal Elbow/Forearm Strength Elbow and Forearm Manual Muscle Testing abelino Flexion (C6) 5 Normal Extension (C7) 5 Normal PT-OP-Q Treatments Start: 01/14/20 08:07 Freq: Status: Active Protocol: Document 02/16/20 08:50 [facility] (Rec: 02/16/20 09:26 SAK [id number]) Cardio Equipment Recumbent Stepper (Sci-Fit) Duration (Minutes) 5 Resistance 1.5 Seat Position 9 Other emphasis on neutral alignment, postural stab Therapeutic Exercises Supine Exercises shoulder flex Comments HEP serratus punch Comments HEP posture press Comments HEP Pec minor stretch Comments HEP pec stretch Comments HEP Prone Exercises T's, I's Reps/Minutes 10x Comments manual facilitation Sitting Exercises pulleys Sitting Exercise Name shoulder flex, scaption Side right Reps/Minutes 10x cervical lateral flexion Side bilateral Comments with hand under her buttock or wrist held by opposite hand Manual Therapy Treatment Joint Mobilizations 2 Joint GH distraction, inf glid, posterior glide Grade III Body Position Supine 1 Joint scapular mobilization Direction abd/add/elev/depr Grade III Body Position Sidelying Taping 1 Body Location postural taping, scapular facilitation Comments abelino from central T10 50% stretch to anterior shoulder Self-Care/Home Management Treatment Education Patient Education Home Exercise Program Other Education videotape of kinesiotape technique for to assist if helpful. PT-OP-R Modalities Start: 01/14/20 08:07 Freq: Status: Active Protocol: Document 02/16/20 08:50 SAK (Rec: 02/16/20 09:26 [facility] [id number]) Hot Pack/Cold Pack Treatment Hot Pack Location c/s and right shoulder PT-OP-T Assessment and Plan Start: 01/14/20 08:07 Freq: Status: Active Protocol: Document 02/16/20 08:50 [facility] (Rec: 02/16/20 09:26 [facility] [id number]) Physical Therapy Assessment Goals Four Impairment weakness right UE [employer] Marshal Goal (LTG) 5/5 muscle strength right shoulder, patient independent and compliant to HEP LTG Duration 02/22/20 Three Impairment postural dysfunction Jail Goal (LTG) Patient to demonstrate good understanding of neutral postural alignment, be independent with postural correction exercises and able to self correct. LTG Duration 02/22/20 Two Impairment difficulty reaching overhead, behind her back for ADL's and daily activity [employer] Marshal Goal (LTG) Patient will be able to do all functional activities with her right UE with minimal to no pain LTG Duration 02/22/20 One Impairment pain right shoulder [employer] Marshal Goal (LTG) Decrease pain to no greater than 2/10 without pain medications LTG Duration 02/22/20 Assessment Summary Assessment exacerbation of patient's pain appears related to lifting and carrying grandaughter. Discussed body mechanics, pain control, modification of activity and HEP as needed when more painful. Patient given information about purchasing pulleys for home use. Videotaped kinesiotape for her use at home if helpful . Recommend further PT to decrease patient's pain and shoulder dysfunction. Physical Therapy Plan Frequency and Duration Frequency of Treatment 2x/Week Duration of Treatment 6 wks Plan of Care Start Date 01/14/20 Plan of Care End Date 02/25/20 Therapeutic Interventions Therapeutic Interventions Home Exercise Program,Joint Mobilizations,Manual Therapy, Neuromuscular Re-education, Patient/Caregiver Education, Self-Care/Home Management,Soft Tissue Mobilization,Taping, Therapeutic Activities, Therapeutic Exercises Modalities Cold Pack/Ice Massage,Electric Stimulation,Hot Packs, Iontophoresis,Ultrasound Next Visit Focus/Plan Next Note Type Treatment Note Next Visit Plan Further GH and scapular mobilization, scapular stabilization, strengthening progression.
--- NOTE | 2020-03-16 13:56 | PT.OTRE ---
Current Diagnoses Pain in right shoulder (03/16/20) Pain in left shoulder (03/16/20) Abnormal posture (03/16/20) Weakness (03/16/20) Past Medical History (Last Updated 02/07/20 @ 13:33 by Matthew Gamino DO) Atrial flutter (Acute) Current use of intermediate card tender anticoagulation (Chronic) GERD (gastroesophageal reflux disease) (Chronic) Heart palpitations (Chronic 2005) Hyperlipidemia (Chronic) Obstructive sleep apnea of adult (Chronic) Primary insomnia (Chronic) Rosacea (Chronic) Scoliosis (Chronic 1961) Snoring (Chronic ~1995) Subdural hematoma (Acute) Surgical History (Last Reviewed 01/01/20 @ 17:14 by SRINIVAS Grove) History of left cataract surgery (Resolved 11/12/12) History of right cataract surgery (Resolved 10/29/12) History of spinal surgery (Resolved 1961) Visit Care Team Role Provider Type SRINIVAS Grove Attending Provider Advanced Plate [employer] Primary Care Provider Referring Provider Specialty: [facility] Address: [address] [place] [address], [facility] Email: [email or web address] Physical Therapy Re-Evaluation PT-OP-A Visit Information Start: 01/14/20 08:07 Freq: Status: Active Protocol: Document 03/16/20 08:12 SAK (Rec: 03/16/20 09:07 SAK [id number]) Out-Patient Physical Therapy Visit Information Visit Information Visit Type Treatment Note Visit Start Time 08:15 Visit Stop Time 09:13 Total Visit Minutes 58 Visit Number 7 Number of TUCKPOINTER Visits 0 Evaluation Information Evaluation Date 01/14/20 Precautions Precautions cardiac post polio Darden rods 8 level thoracic spine (surgery at 15 y/o) Bipap for sleep PT-OP-B Current Condition Start: 01/14/20 08:07 Freq: Status: Active Protocol: Document 01/14/20 10:30 SAK (Rec: 01/14/20 11:18 SAK [id number]) Current Condition History of Current Condition Onset Date 1 year Current Complaints bilateral shoulder pain History of Current Condition Reports function-limiting shoulder pain off and on for years but worsened about a year ago. Did body work previously, reports that could make it go away. Has been bad for over a year. Last had it worked on with massage therapist, went away for about a month but wasn't able to continue with massage therapy. Physician prescribed Tylenol every 4 hours recently which patient reports minimizes the pain. Occasional heat or ice but not regularly. 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 Also reports has to hold her right arm stationary at her chest when taking walks due to pain with it hanging at her side. Sometimes tingling left shoulder blade. Prior Treatments and Tests no x-ray or MRI. prior massage therapy Treatment Goals Patient/Caregiver Goals minimize her pain, learn what she can do to decrease her pain Prior Functional Status Baseline Function- ADL's Independent Baseline Function- Mobility Independent Baseline Function- Work/School indep Current Functional Impairments (Reported) Functional Limitations- ADL's painful with use of right UE all tasks without medication Functional Limitations- Work/School retired PT-OP-C Subjective Start: 01/14/20 08:07 Freq: Status: Active Protocol: Document 03/16/20 08:12 [facility] (Rec: 03/16/20 09:07 [facility] [id number]) OP-PT Subjective Patient Comments Patient Comments Saw Dr. Najera; x-ray showed arthritis, states he suspects a tear in RC. He recommended PT. Compliant to HEP but also states she is also doing a couple exercises like trying to reach overhead and out to side as this is most difficult activity for her. Didn't like kinesiotape, skin reacted poorly. States she is pleased she is seeing progress . PT-OP-E Functional Tests Start: 01/14/20 08:07 Freq: Status: Active Protocol: Document 01/14/20 10:30 SAK (Rec: 01/14/20 16:07 [facility] [id number]) Functional Tests Loran's Scratch Test Action 1: The subject is instructed to touch the opposite shoulder with his/her hand. This motion checks Glenohumeral adduction, internal rotation , horizontal adduction and scapular protraction Action 2: The subject is instructed to place his/her arm overhead and reach behind the neck to touch his/her upper back. This motion checks Glenohumeral abduction, external rotation and scapular upward rotation and elevation. Action 3: The subject puts his/her hand on the lower back and reaches upward as far as possible. This motion checks glenohumeral adduction, internal rotation and scapular retraction with downward rotation Action 1- Left posterior shoulder Action 1- Right anterior shoulder with pain posterior R GH Action 2- Left T2 Action 2- Right lateral ear Action 3- Left L2 Action 3- Right sacrum PT-OP-F Manual Assessment Start: 01/14/20 08:07 Freq: Status: Active Protocol: Document 01/14/20 10:30 SAK (Rec: 01/14/20 16:07 SAK [id number]) Manual Assessments Soft Tissue Assessment Soft Tissue Mobility Assessment moderate tightness bilateral upper traps PT-OP-H Neuro Start: 01/14/20 08:07 Freq: Status: Active Protocol: Document 01/14/20 10:30 SAK (Rec: 01/14/20 16:07 SAK [id number]) Sensation Evaluation Gross Sensation Gross Sensation WNL PT-OP-J Posture/Palpation/Skin Start: 01/14/20 08:07 Freq: Status: Active Protocol: Document 01/14/20 10:30 SAK (Rec: 01/14/20 16:07 SAK [id number]) Posture Evaluation Position Sitting Head/C-Spine Posture Forward Head T-Spine Posture Flattened Shoulder Posture (L) Rounded,(R) Rounded,(L) Forward,(R) Forward,(R) Elevated Scapula Posture (R) Protracted Arm Posture (L) Internally Rotated,(R) Internally Rotated Palpation Assessment Location One Palpation Location right shoulder RC insertion Palpation Findings Tenderness PT-OP-K Range of Motion Start: 01/14/20 08:07 Freq: Status: Active Protocol: Document 01/14/20 10:30 SAK (Rec: 01/14/20 16:07 SAK [id number]) Cervical Spine Range of Motion Cervical Spine Active Rotation Left 45 Rotation Right 50 Lateral Flexion Left 30 Lateral Flexion Right 35 ROM Limitations Soft Tissue Tightness Shoulder Goniometric Range of Motion Shoulder Measured in Degrees Right Active Shoulder ROM WFL No Flexion 160 Abduction 155 Horizontal Abduction 40 External Rotation at 0 degrees Abduction 45 Internal Rotation Behind Back (text) sacrum left Shoulder ROM WFL Yes Testing Position Sitting Shoulder ROM Limitations Shoulder ROM Limitations Soft Tissue Tightness,Pain PT-OP-L Special Tests Start: 01/14/20 08:07 Freq: Status: Active Protocol: Document 01/14/20 10:30 [facility] (Rec: 01/14/20 16:09 [facility] [id number]) Special Tests Shoulder Special Tests Speed's Biceps Test Results negative abelino Elevation Impingement Test Results negative abelino Drop Arm Rotator Cuff Test Results negative abelino Belly Press Test Results negative abelino PT-OP-M Strength Start: 01/14/20 08:07 Freq: Status: Active Protocol: Document 01/14/20 10:30 [facility] (Rec: 01/14/20 16:07 [facility] [id number]) Shoulder Strength Shoulder Manual Muscle Testing Right Flexion 4- Good- Extension 4- Good- External Rotation 4 Good Internal Rotation 4- Good- Left Flexion 5 Normal Extension 5 Normal Abduction (C5) 5 Normal External Rotation 4+ Good+ Internal Rotation 5 Normal Elbow/Forearm Strength Elbow and Forearm Manual Muscle Testing abelino Flexion (C6) 5 Normal Extension (C7) 5 Normal PT-OP-Q Treatments Start: 01/14/20 08:07 Freq: Status: Active Protocol: Document 03/16/20 08:12 [facility] (Rec: 03/16/20 09:07 [facility] [id number]) Cardio Equipment Recumbent Stepper (Sci-Fit) Duration (Minutes) 5 Resistance 1.5 Seat Position 9 Other emphasis on neutral alignment, postural stab Therapeutic Exercises Supine Exercises horizontal abduction Resistance L1 TB Reps/Minutes 10x2 Prone Exercises T's, I's Reps/Minutes 10x Comments manual facilitation; painful T 's right so discontinued. Sidelying Exercises scapular protraction/retraction Reps/Minutes 10x2 Comments manual then active Sitting Exercises seated trunk rotation Reps/Minutes 1x 30 each side pulleys Sitting Exercise Name shoulder flex, scaption Side right Reps/Minutes 10x cervical lateral flexion Side bilateral Comments with hand under her buttock or wrist held by opposite hand Standing Exercises shoulder IR Comments HEP shoulder ER Comments HEP row, shoulder ext Comments HEP postural isometric Comments HEP tennis ball release Comments HEP Manual Therapy Treatment Soft Tissue Mobilization R RTC Body Location infraspinatus and teres minor, biceps, deltoid Mobilization Type Myofascial Release,Sustained Pressure,Trigger Point Release Intensity/Depth Moderate Body Position Sidelying Comments infraspinatus and teres minor Joint Mobilizations 2 Joint GH distraction, inf glid, posterior glide Grade III Body Position Supine PT-OP-R Modalities Start: 01/14/20 08:07 Freq: Status: Active Protocol: Document 02/16/20 08:50 SAK (Rec: 02/16/20 09:26 SAK [id number]) Hot Pack/Cold Pack Treatment Hot Pack Location c/s and right shoulder PT-OP-T Assessment and Plan Start: 01/14/20 08:07 Freq: Status: Active Protocol: Document 03/16/20 08:12 [facility] (Rec: 03/16/20 09:07 [facility] [id number]) Physical Therapy Assessment Goals Four Impairment weakness right UE Assisted Goal (LTG) 5/5 muscle strength right shoulder, patient independent and compliant to HEP 03/16/20: good goal progress, compliant with HEP. 4-4+/5 all muscle groups LTG Duration 04/30/20 Three Impairment postural dysfunction Assisted Goal (LTG) Patient to demonstrate good understanding of neutral postural alignment, be independent with postural correction exercises and able to self correct. 03/16/20: good goal progress, decreaseing frequency of need for corrections LTG Duration 04/30/20 Two Impairment difficulty reaching overhead, behind her back for ADL's and daily activity Health Physics Technician Goal (LTG) Patient will be able to do all functional activities with her right UE with minimal to no pain 03/16/20: good goal progress, reaching overhead most difficult, can do at times, but unable to lift or hold any objects overhead. LTG Duration 04/30/20 One Impairment pain right shoulder Assisted Goal (LTG) Decrease pain to no greater than 2/10 without pain medications 03/16/20: goal progress, pain 3 /10 LTG Duration 04/30/20 Assessment Summary Assessment Patient now able to do gentle right shoulder elevation against gravity without pain most of time after warmed up, though doesn't tolerate resistance or lifting anything . Pain with prone horizontal abaduction (T), but able to tolerate supine hor abduction with L1 TB. Some pain in shoulder with long walks though takes 45 min vs prior 30 min to onset. Continues to progress. Would benefit from continued skilled PT Physical Therapy Plan Frequency and Duration Frequency of Treatment 1x/Week Duration of Treatment 6 wks Plan of Care Start Date 03/16/20 Plan of Care End Date 09/12/20 Therapeutic Interventions Therapeutic Interventions Home Exercise Program,Joint Mobilizations,Manual Therapy, Neuromuscular Re-education, Patient/Caregiver Education, Self-Care/Home Management,Soft Tissue Mobilization,Taping, Therapeutic Activities, Therapeutic Exercises Modalities Cold Pack/Ice Massage,Electric Stimulation,Hot Packs, Iontophoresis,Ultrasound Next Visit Focus/Plan Next Note Type Treatment Note Next Visit Plan Continue PT for gentle RC strengthening, scapular stabilization, GH and scapular mobilization, and modalities PRN to decrease pain, promote healing and return patien to her prior functional level of full active use of her right UE.
--- NOTE | 2020-03-16 13:56 | PT.OPPOC ---
Physical, Occupational & Speech Therapy At [facility] Current Diagnoses Pain in right shoulder (03/16/20) Pain in left shoulder (03/16/20) Abnormal posture (03/16/20) Weakness (03/16/20) Visit Care Team Role Provider Type SRINIVAS Grove Attending Provider Advanced Rn Cardiovascular Primary Care Provider Referring Provider Specialty: [facility] Address: [address] [place] [address], [facility] Email: [email or web address] Plan Of Care PT-OP-T Assessment and Plan Start: 01/14/20 08:07 Freq: Status: Active Protocol: Document 03/16/20 08:12 [facility] (Rec: 03/16/20 09:07 SAK [id number]) Physical Therapy Assessment Goals Four Impairment weakness right UE Retirement Goal (LTG) 5/5 muscle strength right shoulder, patient independent and compliant to HEP 03/16/20: good goal progress, compliant with HEP. 4-4+/5 all muscle groups LTG Duration 04/30/20 Three Impairment postural dysfunction Internship Goal (LTG) Patient to demonstrate good understanding of neutral postural alignment, be independent with postural correction exercises and able to self correct. 03/16/20: good goal progress, decreaseing frequency of need for corrections LTG Duration 04/30/20 Two Impairment difficulty reaching overhead, behind her back for ADL's and daily activity Internship Goal (LTG) Patient will be able to do all functional activities with her right UE with minimal to no pain 03/16/20: good goal progress, reaching overhead most difficult, can do at times, but unable to lift or hold any objects overhead. LTG Duration 04/30/20 One Impairment pain right shoulder Retirement Goal (LTG) Decrease pain to no greater than 2/10 without pain medications 03/16/20: goal progress, pain 3 /10 LTG Duration 04/30/20 Assessment Summary Assessment Patient now able to do gentle right shoulder elevation against gravity without pain most of time after warmed up, though doesn't tolerate resistance or lifting anything . Pain with prone horizontal abaduction (T), but able to tolerate supine hor abduction with L1 TB. Some pain in shoulder with long walks though takes 45 min vs prior 30 min to onset. Continues to progress. Would benefit from continued skilled PT Physical Therapy Plan Frequency and Duration Frequency of Treatment 1x/Week Duration of Treatment 6 wks Plan of Care Start Date 03/16/20 Plan of Care End Date 04/30/20 Therapeutic Interventions Therapeutic Interventions Home Exercise Program,Joint Mobilizations,Manual Therapy, Neuromuscular Re-education, Patient/Caregiver Education, Self-Care/Home Management,Soft Tissue Mobilization,Taping, Therapeutic Activities, Therapeutic Exercises Modalities Cold Pack/Ice Massage,Electric Stimulation,Hot Packs, Iontophoresis,Ultrasound Next Visit Focus/Plan Next Note Type Treatment Note Next Visit Plan Continue PT for gentle RC strengthening, scapular stabilization, GH and scapular mobilization, and modalities PRN to decrease pain, promote healing and return patien to her prior functional level of full active use of her right UE. Plan of Care Dates Plan of Care Start Date 03/16/20 Plan of Care End Date 04/30/20 Electronically Signed by: Janet Leone, PT 03/16/20 1190 Please Sign and Return: I have reviewed this Plan of Care and certify that the skilled therapy services above are required to meet the patient?s needs. Physician Signature Date Printed Name and Credentials Clinical Instructor Signature Printed Name and Credentials
--- NOTE | 2020-03-23 15:13 | PT.OTN ---
Current Diagnoses Pain in right shoulder (03/23/20) Pain in left shoulder (03/23/20) Abnormal posture (03/23/20) Weakness (03/23/20) Physical Therapy Treatment Note PT-OP-A Visit Information Start: 01/14/20 08:07 Freq: Status: Active Protocol: Document 03/23/20 08:21 SAK (Rec: 03/23/20 09:23 SAK [id number]) Out-Patient Physical Therapy Visit Information Visit Information Visit Type Treatment Note Visit Start Time 08:15 Visit Stop Time 09:13 Total Visit Minutes 58 Visit Number 8 Number of [employer] Visits 0 Evaluation Information Evaluation Date 01/14/20 Precautions Precautions cardiac post polio Darden rods 8 level thoracic spine (surgery at 15 y/o) Bipap for sleep PT-OP-B Current Condition Start: 01/14/20 08:07 Freq: Status: Active Protocol: Document 01/14/20 10:30 SAK (Rec: 01/14/20 11:18 SAK [id number]) Current Condition History of Current Condition Onset Date 1 year Current Complaints bilateral shoulder pain History of Current Condition Reports function-limiting shoulder pain off and on for years but worsened about a year ago. Did body work previously, reports that could make it go away. Has been bad for over a year. Last had it worked on with massage therapist, went away for about a month but wasn't able to continue with massage therapy. Physician prescribed Tylenol every 4 hours recently which patient reports minimizes the pain. Occasional heat or ice but not regularly. 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 Also reports has to hold her right arm stationary at her chest when taking walks due to pain with it hanging at her side. Sometimes tingling left shoulder blade. Prior Treatments and Tests no x-ray or MRI. prior massage therapy Treatment Goals Patient/Caregiver Goals minimize her pain, learn what she can do to decrease her pain Prior Functional Status Baseline Function- ADL's Independent Baseline Function- Mobility Independent Baseline Function- Work/School indep Current Functional Impairments (Reported) Functional Limitations- ADL's painful with use of right UE all tasks without medication Functional Limitations- Work/School retired PT-OP-C Subjective Start: 01/14/20 08:07 Freq: Status: Active Protocol: Document 03/23/20 08:21 SAK (Rec: 03/23/20 09:23 SAK [id number]) OP-PT Subjective Patient Comments Patient Comments Some days better, some days worse, uncertain cause. Has been doing a lot of gardening, sometimes overdoes. Has a hard time not sleeping on her side. Occasional ice and heat , not as much as she used to. PT-OP-E Functional Tests Start: 01/14/20 08:07 Freq: Status: Active Protocol: Document 01/14/20 10:30 SAK (Rec: 01/14/20 16:07 SAK [id number]) Functional Tests Apley's Scratch Test Action 1- Left posterior shoulder Action 1- Right anterior shoulder with pain posterior R GH Action 2- Left T2 Action 2- Right lateral ear Action 3- Left L2 Action 3- Right sacrum PT-OP-F Manual Assessment Start: 01/14/20 08:07 Freq: Status: Active Protocol: Document 01/14/20 10:30 SAK (Rec: 01/14/20 16:07 SAK [id number]) Manual Assessments Soft Tissue Assessment Soft Tissue Mobility Assessment moderate tightness bilateral upper traps PT-OP-H Neuro Start: 01/14/20 08:07 Freq: Status: Active Protocol: Document 01/14/20 10:30 SAK (Rec: 01/14/20 16:07 SAK [id number]) Sensation Evaluation Gross Sensation Gross Sensation WNL PT-OP-J Posture/Palpation/Skin Start: 01/14/20 08:07 Freq: Status: Active Protocol: Document 01/14/20 10:30 SAK (Rec: 01/14/20 16:07 SAK [id number]) Posture Evaluation Position Sitting Head/C-Spine Posture Forward Head T-Spine Posture Flattened Shoulder Posture (L) Rounded,(R) Rounded,(L) Forward,(R) Forward,(R) Elevated Scapula Posture (R) Protracted Arm Posture (L) Internally Rotated,(R) Internally Rotated Palpation Assessment Location One Palpation Location right shoulder RC insertion Palpation Findings Tenderness PT-OP-K Range of Motion Start: 01/14/20 08:07 Freq: Status: Active Protocol: Document 01/14/20 10:30 SAK (Rec: 01/14/20 16:07 [facility] [id number]) Cervical Spine Range of Motion Cervical Spine Active Rotation Left 45 Rotation Right 50 Lateral Flexion Left 30 Lateral Flexion Right 35 ROM Limitations Soft Tissue Tightness Shoulder Goniometric Range of Motion Shoulder Right Active Shoulder ROM WFL No Flexion 160 Abduction 155 Horizontal Abduction 40 External Rotation at 0 degrees Abduction 45 Internal Rotation Behind Back (text) sacrum left Shoulder ROM WFL Yes Testing Position Sitting Shoulder ROM Limitations Shoulder ROM Limitations Soft Tissue Tightness,Pain PT-OP-L Special Tests Start: 01/14/20 08:07 Freq: Status: Active Protocol: Document 01/14/20 10:30 [facility] (Rec: 01/14/20 16:09 SAK [id number]) Special Tests Shoulder Special Tests Speed's Biceps Test Results negative abelino Elevation Impingement Test Results negative abelino Drop Arm Rotator Cuff Test Results negative abelino Belly Press Test Results negative abelino PT-OP-M Strength Start: 01/14/20 08:07 Freq: Status: Active Protocol: Document 01/14/20 10:30 [facility] (Rec: 01/14/20 16:07 [facility] [id number]) Shoulder Strength Shoulder Manual Muscle Testing Right Flexion 4- Good- Extension 4- Good- External Rotation 4 Good Internal Rotation 4- Good- Left Flexion 5 Normal Extension 5 Normal Abduction (C5) 5 Normal External Rotation 4+ Good+ Internal Rotation 5 Normal Elbow/Forearm Strength Elbow and Forearm Manual Muscle Testing abelino Flexion (C6) 5 Normal Extension (C7) 5 Normal PT-OP-Q Treatments Start: 01/14/20 08:07 Freq: Status: Active Protocol: Document 03/23/20 08:21 [facility] (Rec: 03/23/20 09:23 [facility] [id number]) Cardio Equipment Recumbent Stepper (Sci-Fit) Duration (Minutes) 8 Resistance 1.5 Seat Position 9 Other emphasis on neutral alignment, postural stab Therapeutic Exercises Supine Exercises horizontal abduction Resistance L1 TB Reps/Minutes 10x2 Sidelying Exercises shoulder abduction Reps/Minutes 15x Comments manual facilitation for correct scapular mobility scapular protraction/retraction Reps/Minutes 10x2 Comments manual then active shoulder ER Resistance 1# Reps/Minutes 10 Sitting Exercises pulleys Sitting Exercise Name shoulder flex, scaption Side right Reps/Minutes 10x Standing Exercises shoulder flex Resistance L1 TB holding abduction tension Reps/Minutes 10x Manual Therapy Treatment Soft Tissue Mobilization R RTC Body Location infraspinatus and teres minor, biceps, deltoid Mobilization Type Myofascial Release,Sustained Pressure,Trigger Point Release Intensity/Depth Moderate Body Position Sidelying Comments infraspinatus and teres minor Joint Mobilizations 2 Joint GH distraction, inf glid, posterior glide Grade III Body Position Supine Self-Care/Home Management Treatment Education Patient Education Home Exercise Program Other Education updated handout PT-OP-R Modalities Start: 01/14/20 08:07 Freq: Status: Active Protocol: Document 03/23/20 08:21 [facility] (Rec: 03/23/20 09:25 [facility] [id number]) Hot Pack/Cold Pack Treatment Cold Pack Location right shoulder Patient Position Sidelying Treatment Duration (minutes) 10 Patient Tolerance Good Iontophoresis Treatment right RC insertion Treatment Medication Dexamethasone (-) Medication Amount (mL) (ml) 1.0 Medication Dosage 4 mg/ml Treatment Polarity Negative to Negative PT-OP-T Assessment and Plan Start: 01/14/20 08:07 Freq: Status: Active Protocol: Document 03/23/20 08:21 [facility] (Rec: 03/23/20 09:23 [facility] [id number]) Physical Therapy Assessment Goals Four Impairment weakness right UE [facility]iary Goal (LTG) 5/5 muscle strength right shoulder, patient independent and compliant to HEP 03/16/20: good goal progress, compliant with HEP. 4-4+/5 all muscle groups LTG Duration 04/30/20 Three Impairment postural dysfunction Authorization Nurse Goal (LTG) Patient to demonstrate good understanding of neutral postural alignment, be independent with postural correction exercises and able to self correct. 03/16/20: good goal progress, decreaseing frequency of need for corrections LTG Duration 04/30/20 Two Impairment difficulty reaching overhead, behind her back for ADL's and daily activity [facility]iary Goal (LTG) Patient will be able to do all functional activities with her right UE with minimal to no pain 03/16/20: good goal progress, reaching overhead most difficult, can do at times, but unable to lift or hold any objects overhead. LTG Duration 04/30/20 One Impairment pain right shoulder Authorization Nurse Goal (LTG) Decrease pain to no greater than 2/10 without pain medications 03/16/20: goal progress, pain 3 /10 LTG Duration 04/30/20 Assessment Summary Assessment Overall improved, patient demonstrates overuse irritation of her shoulder and scapular mechanics and stabilization progressing but need further work for best shoulder function and pain relief. Physical Therapy Plan Frequency and Duration Frequency of Treatment 1x/Week Duration of Treatment 6 wks Plan of Care Start Date 03/16/20 Plan of Care End Date 04/30/20 Therapeutic Interventions Therapeutic Interventions Home Exercise Program,Joint Mobilizations,Manual Therapy, Neuromuscular Re-education, Patient/Caregiver Education, Self-Care/Home Management,Soft Tissue Mobilization,Taping, Therapeutic Activities, Therapeutic Exercises Modalities Cold Pack/Ice Massage,Electric Stimulation,Hot Packs, Iontophoresis,Ultrasound Next Visit Focus/Plan Next Note Type Treatment Note Next Visit Plan Assess response to iontophoresis. Continue PT for gentle RC strengthening, scapular stabilization, GH and scapular mobilization, and modalities PRN to decrease pain, promote healing and return patien to her prior functional level of full active use of her right UE, manual therapy to improve joint mobility, movement re- education.
--- NOTE | 2020-03-30 17:10 | PT.OTN ---
Current Diagnoses Pain in right shoulder (03/30/20) Pain in left shoulder (03/30/20) Abnormal posture (03/30/20) Weakness (03/30/20) Physical Therapy Treatment Note PT-OP-A Visit Information Start: 01/14/20 08:07 Freq: Status: Active Protocol: Document 03/30/20 17:02 NIXON (Rec: 03/30/20 17:09 [facility] [id number]) Out-Patient Physical Therapy Visit Information Visit Information Visit Type Treatment Note Visit Start Time 08:15 Visit Stop Time 09:15 Total Visit Minutes 60 Visit Number 9 Number of [employer] Visits 0 Evaluation Information Evaluation Date 01/14/20 Precautions Precautions cardiac post polio Darden rods 8 level thoracic spine (surgery at 15 y/o) Bipap for sleep PT-OP-B Current Condition Start: 01/14/20 08:07 Freq: Status: Active Protocol: Document 01/14/20 10:30 [facility] (Rec: 01/14/20 11:18 [facility] [id number]) Current Condition History of Current Condition Onset Date 1 year Current Complaints bilateral shoulder pain History of Current Condition Reports function-limiting shoulder pain off and on for years but worsened about a year ago. Did body work previously, reports that could make it go away. Has been bad for over a year. Last had it worked on with massage therapist, went away for about a month but wasn't able to continue with massage therapy. Physician prescribed Tylenol every 4 hours recently which patient reports minimizes the pain. Occasional heat or ice but not regularly. 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 Also reports has to hold her right arm stationary at her chest when taking walks due to pain with it hanging at her side. Sometimes tingling left shoulder blade. Prior Treatments and Tests no x-ray or MRI. prior massage therapy Treatment Goals Patient/Caregiver Goals minimize her pain, learn what she can do to decrease her pain Prior Functional Status Baseline Function- ADL's Independent Baseline Function- Mobility Independent Baseline Function- Work/School indep Current Functional Impairments (Reported) Functional Limitations- ADL's painful with use of right UE all tasks without medication Functional Limitations- Work/School retired PT-OP-C Subjective Start: 01/14/20 08:07 Freq: Status: Active Protocol: Document 03/30/20 17:02 SAK (Rec: 03/30/20 17:09 SAK [id number]) OP-PT Subjective Patient Comments Patient Comments Very sore today, states she didn't do her exercises last week due to being on vacation and then overdid in garden yesterday. Frustrated by how easily her arm becomes more sore. Has done HEP since getting home over past few days. PT-OP-E Functional Tests Start: 01/14/20 08:07 Freq: Status: Active Protocol: Document 01/14/20 10:30 SAK (Rec: 01/14/20 16:07 SAK [id number]) Functional Tests Apley's Scratch Test Action 1- Left posterior shoulder Action 1- Right anterior shoulder with pain posterior R GH Action 2- Left T2 Action 2- Right lateral ear Action 3- Left L2 Action 3- Right sacrum PT-OP-F Manual Assessment Start: 01/14/20 08:07 Freq: Status: Active Protocol: Document 01/14/20 10:30 SAK (Rec: 01/14/20 16:07 SAK [id number]) Manual Assessments Soft Tissue Assessment Soft Tissue Mobility Assessment moderate tightness bilateral upper traps PT-OP-H Neuro Start: 01/14/20 08:07 Freq: Status: Active Protocol: Document 01/14/20 10:30 SAK (Rec: 01/14/20 16:07 SAK [id number]) Sensation Evaluation Gross Sensation Gross Sensation WNL PT-OP-J Posture/Palpation/Skin Start: 01/14/20 08:07 Freq: Status: Active Protocol: Document 01/14/20 10:30 SAK (Rec: 01/14/20 16:07 SAK [id number]) Posture Evaluation Position Sitting Head/C-Spine Posture Forward Head T-Spine Posture Flattened Shoulder Posture (L) Rounded,(R) Rounded,(L) Forward,(R) Forward,(R) Elevated Scapula Posture (R) Protracted Arm Posture (L) Internally Rotated,(R) Internally Rotated Palpation Assessment Location One Palpation Location right shoulder RC insertion Palpation Findings Tenderness PT-OP-K Range of Motion Start: 01/14/20 08:07 Freq: Status: Active Protocol: Document 01/14/20 10:30 SAK (Rec: 01/14/20 16:07 [facility] [id number]) Cervical Spine Range of Motion Cervical Spine Active Rotation Left 45 Rotation Right 50 Lateral Flexion Left 30 Lateral Flexion Right 35 ROM Limitations Soft Tissue Tightness Shoulder Goniometric Range of Motion Shoulder Right Active Shoulder ROM WFL No Flexion 160 Abduction 155 Horizontal Abduction 40 External Rotation at 0 degrees Abduction 45 Internal Rotation Behind Back (text) sacrum left Shoulder ROM WFL Yes Testing Position Sitting Shoulder ROM Limitations Shoulder ROM Limitations Soft Tissue Tightness,Pain PT-OP-L Special Tests Start: 01/14/20 08:07 Freq: Status: Active Protocol: Document 01/14/20 10:30 [facility] (Rec: 01/14/20 16:09 SAK [id number]) Special Tests Shoulder Special Tests Speed's Biceps Test Results negative abelino Elevation Impingement Test Results negative abelino Drop Arm Rotator Cuff Test Results negative abelino Belly Press Test Results negative abelino PT-OP-M Strength Start: 01/14/20 08:07 Freq: Status: Active Protocol: Document 01/14/20 10:30 [facility] (Rec: 01/14/20 16:07 [facility] [id number]) Shoulder Strength Shoulder Manual Muscle Testing Right Flexion 4- Good- Extension 4- Good- External Rotation 4 Good Internal Rotation 4- Good- Left Flexion 5 Normal Extension 5 Normal Abduction (C5) 5 Normal External Rotation 4+ Good+ Internal Rotation 5 Normal Elbow/Forearm Strength Elbow and Forearm Manual Muscle Testing abelino Flexion (C6) 5 Normal Extension (C7) 5 Normal PT-OP-Q Treatments Start: 01/14/20 08:07 Freq: Status: Active Protocol: Document 03/30/20 17:02 [facility] (Rec: 03/30/20 17:09 [facility] [id number]) Cardio Equipment Recumbent Stepper (Sci-Fit) Other not done due to pain Therapeutic Exercises Standing Exercises shoulder IR Reps/Minutes 10x Comments verbal and manual cues for scapular stab shoulder ER Resistance L1 TB Reps/Minutes 10x Comments verbal and manual cues for scapular stab row, shoulder ext Resistance L1 TB Reps/Minutes 10x Comments verbal and manual cues for scapular stab postural isometric Resistance wall Reps/Minutes 5x Comments verbal and manual cues for muscular activation sequencing Manual Therapy Treatment Soft Tissue Mobilization R RTC Body Location infraspinatus and teres minor, biceps, deltoid Mobilization Type Myofascial Release,Sustained Pressure,Trigger Point Release Intensity/Depth Moderate Body Position Sidelying Comments infraspinatus and teres minor Joint Mobilizations 2 Joint GH distraction, inf glid, posterior glide Grade III Body Position Supine PT-OP-R Modalities Start: 01/14/20 08:07 Freq: Status: Active Protocol: Document 03/30/20 17:02 [facility] (Rec: 03/30/20 17:09 [facility] [id number]) Hot Pack/Cold Pack Treatment Cold Pack Location right shoulder Patient Position Sidelying Treatment Duration (minutes) 10 Patient Tolerance Good Iontophoresis Treatment right RC insertion Treatment Medication Dexamethasone (-) Medication Amount (mL) (ml) 1.0 Medication Dosage 4 mg/ml Treatment Polarity Negative to Negative PT-OP-T Assessment and Plan Start: 01/14/20 08:07 Freq: Status: Active Protocol: Document 03/30/20 17:02 [facility] (Rec: 03/30/20 17:09 [facility] [id number]) Physical Therapy Assessment Goals Four Impairment weakness right UE Snf Goal (LTG) 5/5 muscle strength right shoulder, patient independent and compliant to HEP 03/16/20: good goal progress, compliant with HEP. 4-4+/5 all muscle groups LTG Duration 04/30/20 Three Impairment postural dysfunction Snf Goal (LTG) Patient to demonstrate good understanding of neutral postural alignment, be independent with postural correction exercises and able to self correct. 03/16/20: good goal progress, decreaseing frequency of need for corrections LTG Duration 04/30/20 Two Impairment difficulty reaching overhead, behind her back for ADL's and daily activity Snf Goal (LTG) Patient will be able to do all functional activities with her right UE with minimal to no pain 03/16/20: good goal progress, reaching overhead most difficult, can do at times, but unable to lift or hold any objects overhead. LTG Duration 04/30/20 One Impairment pain right shoulder Snf Goal (LTG) Decrease pain to no greater than 2/10 without pain medications 03/16/20: goal progress, pain 3 /10 LTG Duration 04/30/20 Assessment Summary Assessment Appears patient has been performing HEP poorly with excess activation of upper traps and use of excess resistance with band and poor scapular stabilization all of which have been contributing to exacerbation of her pain. Demonstrated good understanding of modifications and cues today. Decreased pain after treatment. Physical Therapy Plan Frequency and Duration Frequency of Treatment 1x/Week Duration of Treatment 6 wks Plan of Care Start Date 03/16/20 Plan of Care End Date 04/30/20 Therapeutic Interventions Therapeutic Interventions Home Exercise Program,Joint Mobilizations,Manual Therapy, Neuromuscular Re-education, Patient/Caregiver Education, Self-Care/Home Management,Soft Tissue Mobilization,Taping, Therapeutic Activities, Therapeutic Exercises Modalities Cold Pack/Ice Massage,Electric Stimulation,Hot Packs, Iontophoresis,Ultrasound Next Visit Focus/Plan Next Note Type Progress Note Next Visit Plan Assess response to modifcation of her HEP with emphasis on decreased resistance, use of mirror for visual feedback, inhibition of upper traps
--- NOTE | 2020-04-13 17:23 | PT.OTN ---
Current Diagnoses Pain in right shoulder (04/13/20) Pain in left shoulder (04/13/20) Abnormal posture (04/13/20) Weakness (04/13/20) Physical Therapy Treatment Note PT-OP-A Visit Information Start: 01/14/20 08:07 Freq: Status: Active Protocol: Document 04/13/20 08:14 NIXON (Rec: 04/13/20 09:02 SAK [id number]) Out-Patient Physical Therapy Visit Information Visit Information Visit Type Treatment Note Visit Start Time 08:15 Visit Stop Time 09:15 Total Visit Minutes 60 Visit Number 9 Number of BEATER DUMPER Visits 0 Evaluation Information Evaluation Date 01/14/20 Precautions Precautions cardiac post polio Darden rods 8 level thoracic spine (surgery at 15 y/o) Bipap for sleep PT-OP-B Current Condition Start: 01/14/20 08:07 Freq: Status: Active Protocol: Document 01/14/20 10:30 NIXON (Rec: 01/14/20 11:18 SAK [id number]) Current Condition History of Current Condition Onset Date 1 year Current Complaints bilateral shoulder pain History of Current Condition Reports function-limiting shoulder pain off and on for years but worsened about a year ago. Did body work previously, reports that could make it go away. Has been bad for over a year. Last had it worked on with massage therapist, went away for about a month but wasn't able to continue with massage therapy. Physician prescribed Tylenol every 4 hours recently which patient reports minimizes the pain. Occasional heat or ice but not regularly. 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 Also reports has to hold her right arm stationary at her chest when taking walks due to pain with it hanging at her side. Sometimes tingling left shoulder blade. Prior Treatments and Tests no x-ray or MRI. prior massage therapy Treatment Goals Patient/Caregiver Goals minimize her pain, learn what she can do to decrease her pain Prior Functional Status Baseline Function- ADL's Independent Baseline Function- Mobility Independent Baseline Function- Work/School indep Current Functional Impairments (Reported) Functional Limitations- ADL's painful with use of right UE all tasks without medication Functional Limitations- Work/School retired PT-OP-C Subjective Start: 01/14/20 08:07 Freq: Status: Active Protocol: Document 04/13/20 08:14 SAK (Rec: 04/13/20 09:02 SAK [id number]) OP-PT Subjective Patient Comments Patient Comments Pain better overall, not exercising as hard as instructed last session, paying more attention to not overusing upper trap muscles. Still some pain with walking and reaching but so much better. I know I need to continue to do the exercises and not push too hard too fast . PT-OP-E Functional Tests Start: 01/14/20 08:07 Freq: Status: Active Protocol: Document 01/14/20 10:30 SAK (Rec: 01/14/20 16:07 SAK [id number]) Functional Tests Apley's Scratch Test Action 1- Left posterior shoulder Action 1- Right anterior shoulder with pain posterior R GH Action 2- Left T2 Action 2- Right lateral ear Action 3- Left L2 Action 3- Right sacrum PT-OP-F Manual Assessment Start: 01/14/20 08:07 Freq: Status: Active Protocol: Document 01/14/20 10:30 SAK (Rec: 01/14/20 16:07 SAK [id number]) Manual Assessments Soft Tissue Assessment Soft Tissue Mobility Assessment moderate tightness bilateral upper traps PT-OP-H Neuro Start: 01/14/20 08:07 Freq: Status: Active Protocol: Document 01/14/20 10:30 SAK (Rec: 01/14/20 16:07 SAK [id number]) Sensation Evaluation Gross Sensation Gross Sensation WNL PT-OP-J Posture/Palpation/Skin Start: 01/14/20 08:07 Freq: Status: Active Protocol: Document 01/14/20 10:30 SAK (Rec: 01/14/20 16:07 SAK [id number]) Posture Evaluation Position Sitting Head/C-Spine Posture Forward Head T-Spine Posture Flattened Shoulder Posture (L) Rounded,(R) Rounded,(L) Forward,(R) Forward,(R) Elevated Scapula Posture (R) Protracted Arm Posture (L) Internally Rotated,(R) Internally Rotated Palpation Assessment Location One Palpation Location right shoulder RC insertion Palpation Findings Tenderness PT-OP-K Range of Motion Start: 01/14/20 08:07 Freq: Status: Active Protocol: Document 01/14/20 10:30 SAK (Rec: 01/14/20 16:07 [facility] [id number]) Cervical Spine Range of Motion Cervical Spine Active Rotation Left 45 Rotation Right 50 Lateral Flexion Left 30 Lateral Flexion Right 35 ROM Limitations Soft Tissue Tightness Shoulder Goniometric Range of Motion Shoulder Right Active Shoulder ROM WFL No Flexion 160 Abduction 155 Horizontal Abduction 40 External Rotation at 0 degrees Abduction 45 Internal Rotation Behind Back (text) sacrum left Shoulder ROM WFL Yes Testing Position Sitting Shoulder ROM Limitations Shoulder ROM Limitations Soft Tissue Tightness,Pain PT-OP-L Special Tests Start: 01/14/20 08:07 Freq: Status: Active Protocol: Document 01/14/20 10:30 [facility] (Rec: 01/14/20 16:09 SAK [id number]) Special Tests Shoulder Special Tests Speed's Biceps Test Results negative abelino Elevation Impingement Test Results negative abelino Drop Arm Rotator Cuff Test Results negative abelino Belly Press Test Results negative abelino PT-OP-M Strength Start: 01/14/20 08:07 Freq: Status: Active Protocol: Document 01/14/20 10:30 [facility] (Rec: 01/14/20 16:07 [facility] [id number]) Shoulder Strength Shoulder Manual Muscle Testing Right Flexion 4- Good- Extension 4- Good- External Rotation 4 Good Internal Rotation 4- Good- Left Flexion 5 Normal Extension 5 Normal Abduction (C5) 5 Normal External Rotation 4+ Good+ Internal Rotation 5 Normal Elbow/Forearm Strength Elbow and Forearm Manual Muscle Testing abelino Flexion (C6) 5 Normal Extension (C7) 5 Normal PT-OP-Q Treatments Start: 01/14/20 08:07 Freq: Status: Active Protocol: Document 04/13/20 08:14 [facility] (Rec: 04/13/20 09:02 [facility] [id number]) Therapeutic Exercises Supine Exercises horizontal abduction Resistance L1 TB Reps/Minutes 10x2 serratus punch Comments HEP posture press Comments HEP Prone Exercises T's, I's Reps/Minutes 10x Comments prone over therapy ball Sitting Exercises pulleys Sitting Exercise Name shoulder flex, scaption Side right Reps/Minutes 10x Standing Exercises shoulder flex Reps/Minutes 10x shoulder IR Reps/Minutes 10x Comments verbal and manual cues for scapular stab shoulder ER Resistance L1 TB Reps/Minutes 10x Comments verbal and manual cues for scapular stab Manual Therapy Treatment Soft Tissue Mobilization R RTC Body Location infraspinatus and teres minor, biceps, deltoid Mobilization Type Myofascial Release,Sustained Pressure,Trigger Point Release Intensity/Depth Moderate Body Position Sidelying Comments infraspinatus and teres minor Joint Mobilizations 2 Joint GH distraction, inf glid, posterior glide Grade III Body Position Supine PT-OP-R Modalities Start: 01/14/20 08:07 Freq: Status: Active Protocol: Document 04/13/20 08:14 [facility] (Rec: 04/13/20 09:02 [facility] [id number]) Hot Pack/Cold Pack Treatment Cold Pack Location right shoulder Patient Position Sidelying Treatment Duration (minutes) 10 Patient Tolerance Good PT-OP-T Assessment and Plan Start: 01/14/20 08:07 Freq: Status: Active Protocol: Document 04/13/20 08:14 [facility] (Rec: 04/13/20 09:02 [facility] [id number]) Physical Therapy Assessment Goals Four Impairment weakness right UE Alodize Machine Operator Goal (LTG) 5/5 muscle strength right shoulder, patient independent and compliant to HEP 03/16/20: good goal progress, compliant with HEP. 4-4+/5 all muscle groups LTG Duration 04/30/20 Three Impairment postural dysfunction Senior Care Goal (LTG) Patient to demonstrate good understanding of neutral postural alignment, be independent with postural correction exercises and able to self correct. 03/16/20: good goal progress, decreaseing frequency of need for corrections LTG Duration 04/30/20 Two Impairment difficulty reaching overhead, behind her back for ADL's and daily activity Senior Care Goal (LTG) Patient will be able to do all functional activities with her right UE with minimal to no pain 03/16/20: good goal progress, reaching overhead most difficult, can do at times, but unable to lift or hold any objects overhead. LTG Duration 04/30/20 One Impairment pain right shoulder Alodize Machine Operator Goal (LTG) Decrease pain to no greater than 2/10 without pain medications 03/16/20: goal progress, pain 3 /10 LTG Duration 04/30/20 Assessment Summary Assessment Patient continues to make slow , gradual progress. At this time she would like to continue with HEP and ice, heat. She will contact PT if she feels need for further PT; if not continuing to get better. Physical Therapy Plan Discharge Physical Therapy Discharge Comments Goals mostly met, patient independent with HEP with good form, demonstrates good understanding of self care. Has high copay so would like to continue with HEP and self care.
== END 2020-04-14 07:56 | disposition home or self-care (01) ==
LOC: PHYS 08:15
PROVIDERS: PCP Nurse Practitioner; Referring Provider Nurse Practitioner; Visit Provider Nurse Practitioner
DX: M25.511 Pain in right shoulder (principal); M25.512 Pain in left shoulder; R53.1 Weakness; R29.3 Abnormal posture
CPT/HCPCS: 97010; 97035; 97110; 97140; 97162; 97535

== ENCOUNTER → 2021-01-25 07:59 | Outpatient (CLI) | payer OTHER, SELFPAY ==
[2021-01-25 08:54] LABS: BUN Creatinine Ratio 31.7 (6-22); Blood Urea Nitrogen 19 mg/dL (7-17); Calcium 9.9 mg/dL (8.4-10.2); Carbon Dioxide 26 mmol/L (22-32); Chloride 106 mmol/L (98-107); Estimated Glomerular Filt Rate > 60.0 mL/min (>60); Glucose 97 mg/dL (80-110); HEMOLYSIS 17 (0-50); Potassium 4.2 mmol/L (3.4-5.1); Sodium 140 mmol/L (137-145)
== END ==
PROVIDERS: PCP Nurse Practitioner; Referring Provider Physician Assistant; Visit Provider Physician Assistant
DX: I48.0 Paroxysmal atrial fibrillation (principal); Z51.81 Encounter for therapeutic drug level monitoring; Z79.899 Other long term (current) drug therapy
CPT/HCPCS: 36415; 80048

== ENCOUNTER → 2021-03-23 07:25 | Outpatient (CLI) | payer OTHER, SELFPAY ==
[2021-03-23 08:41] LABS: Hemoglobin A1C% w Est Avg Glu 5.7 % (4.0-6.0)
[2021-03-23 08:46] LABS: Alanine Aminotransferase 18 IU/L (<35); Albumin Globulin Ratio 1.5 (1.0-2.8); Alkaline Phosphatase 52 U/L (38-126); Aspartate Aminotransferase 23 IU/L (14-36); BUN Creatinine Ratio 24.6 (6-22); Bilirubin Total 0.3 mg/dL (0.2-1.3); Blood Urea Nitrogen 15 mg/dL (7-17); Calcium 9.7 mg/dL (8.4-10.2); Carbon Dioxide 30 mmol/L (22-32); Chloride 105 mmol/L (98-107); Cholesterol 155 mg/dL (140-199); Estimated Glomerular Filt Rate > 60.0 mL/min (>60); Globulin 2.6 g/dL (1.7-4.1); Glucose 95 mg/dL (80-110); HDL Cholesterol 66 mg/dL (40-60); HEMOLYSIS < 15 (0-50); LDL Cholesterol Calculated 72 mg/dL (<100); Potassium 4.1 mmol/L (3.4-5.1); Sodium 142 mmol/L (137-145); Total Protein 6.6 g/dL (6.3-8.2); Triglycerides 87 mg/dL (35-150)
[2021-03-23 09:09] LABS: Free T3, Triiodothyronine Free 3.14 pg/mL (2.77-5.27); Free T4, Direct Thyroxine 0.87 ng/dL (0.78-2.19)
[2021-03-23 09:23] LABS: Thyroid Stimulating Hormone 1.84 uIU/mL (0.47-4.68)
[2021-03-23 11:07] LABS: Microalbumin Urine Random < 0.6 mg/dL (0-1.6)
== END ==
PROVIDERS: PCP Nurse Practitioner; Referring Provider Nurse Practitioner; Visit Provider Nurse Practitioner
DX: Z79.899 Other long term (current) drug therapy (principal); E78.00 Pure hypercholesterolemia, unspecified; F32.9 Major depressive disorder, single episode, unspecified; F41.9 Anxiety disorder, unspecified; I48.0 Paroxysmal atrial fibrillation; I48.92 Unspecified atrial flutter; Z13.1 Encounter for screening for diabetes mellitus
CPT/HCPCS: 36415; 80053; 80061; 82043; 82570; 83036; 84439; 84443; 84481

== ENCOUNTER → 2021-03-29 08:31 | Outpatient (CLI) | payer OTHER, SELFPAY ==
[2021-03-30 11:05] LABS: Fecal Immunochemical Test Positive (Negative)
== END ==
PROVIDERS: PCP Nurse Practitioner; Referring Provider Nurse Practitioner; Visit Provider Nurse Practitioner
DX: Z12.11 Encounter for screening for malignant neoplasm of colon (principal)
CPT/HCPCS: 82274

== ENCOUNTER → 2021-05-26 09:58 | Outpatient (CLI) | payer OTHER, SELFPAY ==
[2021-05-26 13:12] LABS: COVID19 -Nasal RAPID Negative (Negative)
== END ==
PROVIDERS: PCP Nurse Practitioner; Visit Provider Surgery
DX: Z20.822 Contact with and (suspected) exposure to COVID-19 (principal); Z01.812 Encounter for preprocedural laboratory examination
CPT/HCPCS: 87635; C9803

== ENCOUNTER 2021-05-29 12:13 | Day surgery (SDC) | payer OTHER, SELFPAY ==
[2021-05-29] VITALS (7 sets, daily range): BP systolic 101–121; BP diastolic 44–76; PULSE 68–77; RESP 11–18; TEMP 36.2–36.7; O2SAT 96–99; BMI 20.2
[2021-05-29] MEDS: LACTATED RINGERS 1,000 ML 42 ML IV (13:27)
--- NOTE | 2021-05-29 14:20 | PM.HP.1 ---
History of Present Illness History of Present Illness Date Patient Seen: 05/29/21 Time Patient Seen: 14:20 Chief complaint: SDC Narrative: Heme + FIT. No symptoms, no family history for colon cancer. 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 Sister No problems noted. Family/Other No problems noted. Family/Other No problems noted. Social History: household members spouse Tobacco & Substance use: Smoking Status Never smoker alcohol intake current alcohol intake frequency 0-2 drinks per day Substance Use Type marijuana Meds Home Medications and Allergies Home Medications Medication Instructions Recorded Confirmed Type Probiotic 1 cap PO DAILY #0 07/26/17 01/01/20 History digestive enzymes 1 cap PO AC #0 08/16/17 01/01/20 History dofetilide 250 mcg capsule 250 mcg PO Q12H cap 12/25/18 05/29/21 History Calcium With D 1 tab PO BID 04/06/19 05/29/21 History acetaminophen 500 mg capsule 1,000 mg PO Q6H PRN 04/06/19 05/29/21 History diltiazem HCl 180 mg 180 mg PO DAILY 04/06/19 05/29/21 History capsule,extended release 24 hr metronidazole 1 % topical gel 1 applic TOPICAL BID 04/06/19 01/01/20 History dabigatran etexilate 150 mg 150 mg PO BID #180 cap 05/25/19 05/29/21 Rx capsule (Pradaxa) Resmed Aircurve 10 BIPAP #1 ea 07/31/19 01/01/20 History atorvastatin 20 mg tablet See Rx Instructions .ROUTE 05/22/21 05/29/21 Rx .COMPLEX #90 tab dabigatran etexilate 150 mg 150 mg PO 05/29/21 History capsule (Pradaxa) dabigatran etexilate 150 mg mg PO 05/29/21 History capsule (Pradaxa) Allergies Allergy/AdvReac Type Severity Reaction Status Date / Time lactose Allergy Unknown Verified 05/29/21 12:56 Exam Vital Signs (past 8 hours): - 05/29/21 13:03 Temperature 98.1 F Pulse Rate 68 Blood Pressure 109/76 Const General: cooperative and healthy appearing Nutritional Appearance: thin Orientation: alert and oriented x3 HENMT Head: normal to inspection Ears: hearing grossly normal bilaterally Eyes General: appearance normal, both eyes and all related structures Neck Neck: trachea midline Resp Effort & Inspection: normal respiratory effort and able to speak in complete sentences Auscultation: clear to auscultation bilaterally Cardio Rate: regular rate Rhythm: abnormal rhythm GI Inspection: normal to inspection Skin General: no rashes or lesions noted Neuro Speech: speech normal Extrem General: normal to inspection and full ROM Psych Appearance: grossly normal Judgment: judgment good Assessment & Plan Assessment & Plan narrative: positive FIT test. Plan for colonoscopy with moderated sedation COVID-19 COVID-19 status: Negative Time Spent With Patient Time with patient: less than 30 minutes Critical Care time: I spent a total of [] minutes of critical care time on this patient's care today; this time is exclusive of procedural time.
[2021-05-29] MEDS: MIDAZOLAM 5 MG/5 ML VIAL IV (14:40)
[2021-05-29] MEDS: fentaNYL 250 MCG/5 ML INJ IV (14:47)
--- NOTE | 2021-05-29 14:48 | PM.OP.ENDO ---
Operative Date/Time/Diagnoses Date of procedure: 05/29/21 Time of procedure: 14:48 Pre-op diagnosis: Positive fit test Post-op diagnosis: same Procedure & Clinicians Study performed: Colonoscopy with sedation Same procedure as scheduled: Yes Indications: Positive fit test Surgeon: Michelle Villareal Procedure Notes SCOAP/Timeout: Done Procedure in detail: Preop diagnosis: Positive fit test Postop diagnosis: Same Operative procedure: Colonoscopy with moderate sedation Surgeon: Nelda Villareal MD Anesthetic: Fentanyl 175 micro g, Versed 8 mg. Findings: Severe large and small diverticulosis of the descending colon. No polyps no masses. Procedure: Patient placed in lateral position. Rectal exam performed showing normal tone no masses. Colonoscope inserted into the rectum and advanced to the ileocecal valve with minimal difficulty. There was external abdominal pressure placed. Insufflation extraction scope including retroflex in the rectum had the above findings. Impression: Severe diverticulosis, no polyps no masses. Plan: Repeat colonoscopy in 10 years lytes otherwise indicated by change in family history or clinical condition Scope withdrawal time: 5 minutes Sedation minutes: 23 Findings: diverticulosis Specimen(s): none sent Complications: none Impression: Severe diverticulosis of the sigmoid colon. No polyps Post-procedure Recommendations: Colonscopy in 10 years and Continue medication(s) Plan for aftercare: Home Follow up: as needed Disposition: PACU
--- NOTE | 2021-05-29 16:20 | SUR.PHASEII ---
Dr Villareal updated on pt event - N/V, flipping into afib - (pt has history of afib). Currently, pink, denies nausea. Con't afib. OK to discharge per Dr Villareal.
--- NOTE | 2021-05-29 16:27 | SUR.PHASEII ---
1545 pt was dressed and getting up to to go home and felt faint and nauseated placed pt back in bed, pt vomited small amount of clear liquids, verbalized she felt better in few minutes. Re-checked VS and noted pulse irregular. Pt had been SR with know BBB and occasional PVC's , after pt event placed on EKG and noted pt was in afib with controlled rate 80-110. Pt and aware vital signs stable and surgeon notified in change of rhythm and stated ok for pt to go home. No new orders.
== END 2021-05-29 16:23 | disposition home or self-care (01) ==
PROVIDERS: Surgery; PCP Nurse Practitioner; Referring Provider Surgery; Visit Provider Surgery
PROC: 0DJD8ZZ Inspection of Lower Intestinal Tract, Via Natural or Artificial Opening Endoscopic (ICD-10-PCS; CPT 45378; principal; 2021-05-29 13:45)
DX: R19.5 Other fecal abnormalities (principal); K57.30 Diverticulosis of large intestine without perforation or abscess without bleeding; K21.9 Gastro-esophageal reflux disease without esophagitis; E78.5 Hyperlipidemia, unspecified; G47.33 Obstructive sleep apnea (adult) (pediatric); I48.92 Unspecified atrial flutter; Z79.01 Long term (current) use of anticoagulants
CPT/HCPCS: 45378; 99152; J2250; J3010

== ENCOUNTER → 2021-06-20 13:33 | Outpatient (CLI) | payer OTHER, SELFPAY ==
--- NOTE | 2021-06-20 13:36 | DIET.PN1 ---
Dietary Progress Note Assessment: 75y F attending [address] visit for help with diet to manage severe diverticulosis. Pt had no trouble until after colonoscopy on May 29, 2021, ate soup broth made from broccoli stems causing gas and bloating. Since then, pt has had bloating frequently, also experiencing stomach pain 2h after eating with belching with intake of: beans, peanut butter, cooked tomatoes. Pt finding some relief with Milk of Magnesia. Pts children and grandchildren recently relocated to [place] which is stressful for pt. Pt takes tylenol periodically for pain but no atypical intake recently. Avoids mint, greasy foods, mostly raw onions and garlic. Pt stopped taking probiotic 2mo ago and takes digestive enzymes but first thing in the morning like a supplement rather than with meals. Pt reports remote hx of chronic constipation. Pt endorses having difficulty drinking enough fluids in a day but has increased fluids intentionally and consumes Fiber One cereal with good result. Pt doing internet research wondering about low FODMAP diet, fermentation in the stomach, has many questions and is confused over what she should eat to reduce sx. RD Impression: Pt has always had a little difficulty with GERD and bloating but sx have increased immensely since having her colonoscopy. Pt taking Milk of Magnesia almost daily now with discomfort. Pts nutrition picture not pointing to single offending factor, possibly confluence of several things: increased life stress, atypical oral intake secondary to bowel prep, recently stopping probiotics. Interventions: 1. Educated pt on dietary reccs for diverticulosis as high fiber diet, especially soluble fiber. Reviewed sources. If having flare, reviewed low fiber diet reccs. Reiterated importance of adequate hydration including but not limited to water. 2. Discussed dietary reccs for GERD reinforced by handout for patient highlighting foods to avoid until our next visit. 3. Educated pt on supportive foods to heal gut lining in case there is some inflammation. Focus on soft protein, Vitamin A containing foods such as winter squash and yams, zinc. 4. To address pts nutrition supplements, encouraged pt to consume probiotic food daily and if not that, take probiotic supplement. Educated pt on proper use of digestive enzymes, to consume with a meal rather than on an empty stomach as this could potentially help with her bloating. EER: 25g Fiber daily Monitoring/Evaluations: f/u in 1mo Electronically Signed by: Jennifer Momin 06/20/21 13:36 Clinical Dietitian [address] [address]
== END ==
PROVIDERS: PCP Nurse Practitioner; Referring Provider Nurse Practitioner; Visit Provider Nurse Practitioner
DX: K57.90 Diverticulosis of intestine, part unspecified, without perforation or abscess without bleeding (principal); Z71.3 Dietary counseling and surveillance
CPT/HCPCS: 97802

== ENCOUNTER → 2021-07-25 08:44 | Outpatient (CLI) | payer OTHER, SELFPAY ==
--- NOTE | 2021-07-25 08:58 | DIET.PN1 ---
Dietary Progress Note 75y F [address] f/u for severe diverticulosis, bloating, gas, and stomach pain. Pt travelled to [place] last month and only had one episode of pain. She has not needed to use Milk of Magnesia since our first visit together. Pt reports cruciferous family still issue so is avoiding for now, will eventually test this food group to get back into diet. Pt taking digestive enzymes with meals which she finds is a big help. Pt ate spicy pepperoni pizza in [place] and had no issues. Pt noticed she is more tolerant to lactose now as well. Taking 1/4c yogurt daily for probiotic. Pt overall very pleased with current food routine and symptom management. Pt does have a few more nutrition visits available and will call to schedule prn. Electronically Signed by: Jennifer Momin 07/25/21 08:58 Clinical Dietitian [address] [address]
== END ==
PROVIDERS: PCP Nurse Practitioner; Referring Provider Nurse Practitioner; Visit Provider Nurse Practitioner
DX: K57.90 Diverticulosis of intestine, part unspecified, without perforation or abscess without bleeding (principal); Z71.3 Dietary counseling and surveillance
CPT/HCPCS: 97803

== ENCOUNTER → 2021-08-04 15:29 | Outpatient (CLI) | payer OTHER, SELFPAY ==
[2021-08-04 17:36] LABS: BUN Creatinine Ratio 20.8 (6-22); Blood Urea Nitrogen 16 mg/dL (7-17); Calcium 9.5 mg/dL (8.4-10.2); Carbon Dioxide 31 mmol/L (22-32); Chloride 105 mmol/L (98-107); Estimated Glomerular Filt Rate > 60.0 mL/min (>60); Glucose 100 mg/dL (80-110); HEMOLYSIS < 15 (0-50); Potassium 3.8 mmol/L (3.4-5.1); Sodium 139 mmol/L (137-145)
== END ==
PROVIDERS: PCP Nurse Practitioner; Referring Provider Internal Medicine Cardiovascular Disease; Visit Provider Internal Medicine Cardiovascular Disease
DX: I48.0 Paroxysmal atrial fibrillation (principal)
CPT/HCPCS: 36415; 80048

== ENCOUNTER → 2021-12-06 14:34 | Outpatient (CLI) | payer OTHER, SELFPAY ==
--- NOTE | 2021-12-06 | DI.MG.S_ITS ---
BILATERAL DIGITAL SCREENING MAMMOGRAM 3D/2D WITH CAD: 12/06/2021 CLINICAL: Routine screening. Comparison is made to exams dated: 08/17/2013 mammogram, 04/30/2011 mammogram, and 12/11/2007 mammogram - [facility]. The tissue of both breasts is heterogeneously dense. This may lower the sensitivity of mammography. Current study was also evaluated with a Computer Aided Detection (CAD) system. No significant masses, calcifications, or other findings are seen in either breast. There has been no significant interval change. IMPRESSION: NEGATIVE There is no mammographic evidence of malignancy. A 1 year screening mammogram is recommended. This exam was interpreted at Station ID: [id number]. NOTE: For mammograms, a report in lay terms will be sent to the patient. Approximately 15% of breast malignancies will not be visualized mammographically. In the management of a palpable breast mass, a negative mammogram must not discourage biopsy of a clinically suspicious lesion. Electronically Signed By: Sumit Still M.D., jr/livia:12/06/2021 15:14:37 letter sent: Normal Exam ACR BI-RADS Category 1: Negative 3341F
== END ==
PROVIDERS: PCP Nurse Practitioner; Referring Provider Nurse Practitioner; Visit Provider Nurse Practitioner
DX: Z12.31 Encounter for screening mammogram for malignant neoplasm of breast (principal)
CPT/HCPCS: 77063; 77067

== ENCOUNTER → 2022-03-08 08:00 | Outpatient (CLI) | payer OTHER, SELFPAY ==
[2022-03-08 09:02] LABS: Add Manual Diff / Slide Review NO; Basophils Absolute Auto 100 /uL (0-100); Basophils Percent Auto 1.4 % (0-2); Eosinophils Absolute Auto 200 /uL (0-450); Eosinophils Percent Auto 2.6 % (2-4); Hematocrit 26.2 % (36-46); Hemoglobin 7.8 g/dL (12.0-16.0); Lymphocytes Absolute Auto 1100 /uL (1100-4500); Lymphocytes Percent Auto 16.7 % (25-40); Mean Corpuscular HGB Conc 29.7 % (30-36); Mean Corpuscular Hemoglobin 18.3 PG (26-34); Mean Corpuscular Volume 61.4 fL (80-100); Monocytes Absolute Auto 500 /uL (0-900); Monocytes Percent Auto 7.9 % (3-14); Neutrophils Absolute Auto 4900 /uL (1500-7000); Neutrophils Percent Auto 71.4 % (50-75); Platelet Count 394 X10^3/uL (150-400); Red Blood Cell Count 4.26 X10^6/uL (4.0-5.2); Red Cell Distribution Width 20.6 % (11.6-14.8); White Blood Cell Count 6.9 X10^3/uL (4.5-11.0)
[2022-03-08 09:11] LABS: Alanine Aminotransferase 17 IU/L (<35); Albumin 4.1 g/dL (3.5-5.0); Albumin Globulin Ratio 1.3 (1.0-2.8); Alkaline Phosphatase 50 U/L (38-126); Aspartate Aminotransferase 21 IU/L (14-36); BUN Creatinine Ratio 20.3 (6-22); Bilirubin Total 0.1 mg/dL (0.2-1.3); Blood Urea Nitrogen 15 mg/dL (7-17); Calcium 8.9 mg/dL (8.4-10.2); Carbon Dioxide 28 mmol/L (22-32); Chloride 106 mmol/L (98-107); Estimated Glomerular Filt Rate > 60 mL/min (>60); Globulin 3.2 g/dL (1.7-4.1); Glucose 109 mg/dL (80-110); HEMOLYSIS < 15 (0-50); Potassium 4.2 mmol/L (3.4-5.1); Sodium 141 mmol/L (137-145); Total Protein 7.3 g/dL (6.3-8.2)
[2022-03-08 09:37] LABS: Hypochromasia 2+; Microcytosis 1+
[2022-03-08 09:38] LABS: Poikilocytosis 1+
[2022-03-08 09:39] LABS: Anisocytosis 2+
[2022-03-08 09:43] LABS: TSH w/ Reflex to FT4 1.74 uIU/mL (0.47-4.68)
[2022-03-08 10:00] LABS: Vitamin B12 722 pg/mL (239-931)
[2022-03-08 11:38] LABS: Reticulocyte Count, Percent 1.6 % (1.1-2.6)
[2022-03-08 11:42] LABS: HEMOLYSIS < 15 (0-50); Iron 23 ug/dL (37-170)
[2022-03-08 11:43] LABS: Lactate Dehydrogenase 503 U/L (313-618)
[2022-03-08 11:53] LABS: Percent Iron Saturation 5 % (15-50); Total Iron Binding Capacity 487 ug/dL (265-497); Transferrin 370 mg/dL (206-381)
[2022-03-08 12:19] LABS: Ferritin 5 ng/mL (11-264)
== END ==
PROVIDERS: PCP Nurse Practitioner; Referring Provider Student in an Organized Health Care Education/Training Program; Visit Provider Student in an Organized Health Care Education/Training Program
DX: F51.01 Primary insomnia (principal); I48.0 Paroxysmal atrial fibrillation; R53.83 Other fatigue; D50.9 Iron deficiency anemia, unspecified
CPT/HCPCS: 36415; 80053; 82607; 82728; 83540; 83550; 83615; 84443; 85025; 85045

== ENCOUNTER → 2022-04-03 11:50 | Outpatient (CLI) | payer OTHER, SELFPAY ==
[2022-04-03 13:44] LABS: Add Manual Diff / Slide Review NO; Basophils Absolute Auto 100 /uL (0-100); Basophils Percent Auto 1.2 % (0-2); Eosinophils Absolute Auto 100 /uL (0-450); Eosinophils Percent Auto 0.8 % (2-4); Hematocrit 32.5 % (36-46); Hemoglobin 10.2 g/dL (12.0-16.0); Lymphocytes Absolute Auto 1600 /uL (1100-4500); Lymphocytes Percent Auto 21.7 % (25-40); Mean Corpuscular HGB Conc 31.3 % (30-36); Mean Corpuscular Hemoglobin 21.6 PG (26-34); Monocytes Absolute Auto 400 /uL (0-900); Monocytes Percent Auto 5.6 % (3-14); Neutrophils Absolute Auto 5200 /uL (1500-7000); Neutrophils Percent Auto 70.7 % (50-75); Platelet Count 373 X10^3/uL (150-400); Red Blood Cell Count 4.71 X10^6/uL (4.0-5.2); Red Cell Distribution Width 33.8 % (11.6-14.8); White Blood Cell Count 7.4 X10^3/uL (4.5-11.0)
[2022-04-03 14:12] LABS: HEMOLYSIS < 15 (0-50); Iron 45 ug/dL (37-170)
[2022-04-03 14:14] LABS: BUN Creatinine Ratio 17.3 (6-22); Blood Urea Nitrogen 13 mg/dL (7-17); Calcium 8.6 mg/dL (8.4-10.2); Carbon Dioxide 28 mmol/L (22-32); Chloride 106 mmol/L (98-107); Estimated Glomerular Filt Rate > 60 mL/min (>60); Glucose 136 mg/dL (80-110); HEMOLYSIS < 15 (0-50); Potassium 3.6 mmol/L (3.4-5.1); Sodium 141 mmol/L (137-145)
[2022-04-03 14:23] LABS: Percent Iron Saturation 12 % (15-50); Total Iron Binding Capacity 391 ug/dL (265-497); Transferrin 293 mg/dL (206-381)
[2022-04-03 14:33] LABS: Hypochromasia 2+; Microcytosis 2+; Poikilocytosis 1+
== END ==
PROVIDERS: PCP Nurse Practitioner; Referring Provider Nurse Practitioner; Visit Provider Nurse Practitioner
DX: D50.9 Iron deficiency anemia, unspecified (principal); Z79.899 Other long term (current) drug therapy
CPT/HCPCS: 36415; 80048; 83540; 83550; 85025

== ENCOUNTER → 2022-04-27 10:32 | Outpatient (CLI) | payer OTHER, SELFPAY ==
[2022-04-27 11:16] LABS: COVID19 -Nasal RAPID Negative (Negative)
== END ==
PROVIDERS: PCP Nurse Practitioner; Visit Provider Surgery
DX: Z01.812 Encounter for preprocedural laboratory examination (principal); Z20.822 Contact with and (suspected) exposure to COVID-19
CPT/HCPCS: 87635; C9803

== ENCOUNTER 2022-04-30 07:33 | Day surgery (SDC) | payer OTHER, SELFPAY ==
--- NOTE | 2022-04-30 | PATH_ITS ---
[facility] Accession Number: [id number] . 01 Material submitted: . PART A: duodenum - DUODENUM BIOPSY PART B: gastrointestinal site - ANTRUM BIOPSY . 01 Diagnosis: A. Duodenum, Biopsy: Small bowel mucosa with no diagnostic abnormality. Negative for active inflammation, features of sprue, dysplasia, or malignancy. . B. Stomach, Antrum, Biopsy: Antral mucosa with reactive gastropathy, mild chronic gastritis, and focal intestinal metaplasia. Negative for Helicobacter by immunohistochemistry. Negative for dysplasia and malignancy. [facility] 05/03/2022 1447 Local . 01 Electronically signed: . Radha Perdue MD, Pathologist NPI- [id number] . 01 Gross description: . Part A: DUODENUM BIOPSY: Received in formalin are 4 fragment(s) of hunter, soft tissue measuring 0.2 x 0.2 x 0.2 cm to 0.3 x 0.3 x 0.3 cm submitted entirely in 1 cassette(s) Part B: ANTRUM BIOPSY: Received in formalin is 2 fragment(s) of hunter, soft tissue measuring 0.1 x 0.1 x 0.1 cm to 0.3 x 0.3 x 0.2 cm submitted entirely in 1 cassette(s) /[facility] 05/01/2022 0134 Local . 01 Microscopic: . B. An immunohistochemical stain was performed to evaluate for Helicobacter organisms and is negative. The control stain showed appropriate reactivity. . * This test was developed and its performance characteristics determined by [facility]. It has not been cleared or approved by the U.S. Food and Drug Administration. The FDA has determined that such clearance or approval is not necessary. This test is used for clinical purposes. It should not be regarded as investigational or for research. . 01 Pathologist provided ICD-10: D50.9, R10.13 . 01 CPT . 484650, 588167, [id number] Performed at: [facility] [address] [place] [address], [place], [place] [id number] MD Solomon Fraga MD Phone: [phone]
[2022-04-30 08:30] VITALS: BP 129/72; PULSE 64; RESP 16; TEMP 35.9; O2SAT 99; BMI 19.7
--- NOTE | 2022-04-30 08:30 | PM.HP.1 ---
History of Present Illness History of Present Illness Date Patient Seen: 04/30/22 Time Patient Seen: 08:30 Chief complaint: SDC Narrative: I reviewed the patient's recent office visit. Negative colonoscopy 11 months ago. She has an iron-deficiency anemia. She is off Pradaxa 2 days. Patient History Medical History Atrial flutter Current use of buttermaker continuous churn anticoagulation Diverticulosis GERD (gastroesophageal reflux disease) GIB (gastrointestinal bleeding) Heart palpitations (2005) Hyperlipidemia Obstructive sleep apnea of adult Positive FIT (fecal immunochemical test) Primary insomnia Profound anemia Rosacea Scoliosis (1961) Snoring (~1995) Subdural hematoma Surgical History History of left cataract surgery (11/12/12) History of right cataract surgery (10/29/12) History of spinal surgery (1961) Family & Social History Family History Father Heart disease Mother Pneumonia Brother No problems noted. Sister No problems noted. Family/Other No problems noted. Family/Other No problems noted. Social History: household members spouse Tobacco & Substance use: Smoking Status Never smoker alcohol intake current alcohol intake frequency 0-2 drinks per day Substance Use Type marijuana Meds Home Medications and Allergies Home Medications Medication Instructions Recorded Confirmed Type digestive enzymes 1 cap PO AC ##0 08/16/17 04/30/22 History dofetilide 250 mcg capsule 250 mcg PO Q12H 12/25/18 04/30/22 History Calcium With D 1 tab PO BID 04/06/19 04/30/22 History diltiazem HCl 180 mg 180 mg PO DAILY 04/06/19 04/30/22 History capsule,extended release 24 hr atorvastatin 20 mg tablet See Rx Instructions .Route 05/22/21 04/30/22 Rx .COMPLEX #90 tabs dabigatran etexilate 150 mg 150 mg PO BID ATRIAL FLUTTER 08/01/21 04/30/22 History capsule (Pradaxa) mupirocin 2 % topical ointment 1 applic topical 08/01/21 04/04/22 History doxepin 3 mg tablet 3 mg PO BEDTIME PRN sleep #90 tabs 03/08/22 04/30/22 Rx ferrous sulfate, dried 168 mg (50 168 mg PO BID #180 tabs 03/08/22 04/30/22 Rx mg iron) tablet,extended release Resmed Aircurve 10 BIPAP #1 ea 03/13/22 04/04/22 History progesterone micronized 100 mg 100 mg PO BEDTIME 30 days #90 caps 04/04/22 04/04/22 Rx capsule Allergies Allergy/AdvReac Type Severity Reaction Status Date / Time lactose Allergy Unknown Verified 04/30/22 08:24 Review of Systems Review of Systems ROS: Yes All systems reviewed with the patient and are negative except as otherwise documented Exam Const General: cooperative HENMT Head: normal to inspection Eyes General: appearance normal, both eyes and all related structures Neck Neck: normal visual inspection Chest Chest: normal inspection of the chest Resp Effort & Inspection: normal respiratory effort Cardio Rate: regular rate GI Inspection: normal to inspection Skin General: no rashes or lesions noted Neuro General: patient alert and patient awake Extrem General: normal to inspection and no pedal edema Psych Appearance: grossly normal Assessment & Plan Assessment & Plan narrative: 76-year-old female with iron-deficiency anemia. Upper endoscopy is pursued today. Time Spent With Patient Critical Care time: I spent a total of [] minutes of critical care time on this patient's care today; this time is exclusive of procedural time.
--- NOTE | 2022-04-30 08:33 | PM.PREOP ---
Pre-operative Note COVID-19 COVID-19 status: Negative Result date/Date tested (Pos, Neg/Pending): 04/27/22 Criteria for continued procedure: Possibility delay results in more complex future surgery or treatment Interval Note History & Physical reviewed/Exam performed by Physician: Yes Changes to H&P: No ASA Class (for procedural sedation): III
[2022-04-30] MEDS: SODIUM CHLORIDE 0.9% 1,000 ML 84 ML IV (08:46)
--- NOTE | 2022-04-30 09:21 | P.OP.EGD_ITS ---
Operative Date/Time/Diagnoses Date of procedure: 04/30/22 Time of procedure: 09:21 Pre-op diagnosis: Iron-deficiency anemia Post-op diagnosis: same Procedure & Clinicians Study performed: EGD with biopsies Same procedure as scheduled: Yes Indications: Iron-deficiency anemia Surgeon: Fercho Tabares Procedure Notes SCOAP/Timeout: Done Procedure in detail: After the risks and benefits were explained, written and verbal informed consent was obtained. The patient was brought into the procedure room and placed into the left lateral decubitus position. Please see nurse vocal music teacher notes for sedation details. The scope was introduced into the mouth through the bite block and advanced under direct visualization to the 2nd portion of the duodenum. The scope was slowly withdrawn carefully examining the mucosa for any defects or lesions. Retroflexed views were accomplished in the stomach. The stomach was decompressed, the scope was then removed from the patient who tolerated the procedure well. Sedation minutes: 12 Complications: none Impression: 1. Duodenum: This was visually normal from the bulb through to the 2nd portion. No ulcers no mass lesions. No angiodysplasia or AVMs. Random duodenal biopsies from D2 were acquired for exclusion of sprue. 2. Stomach: No ulcers no outlet obstruction no mass lesions. No AVMs or angiodysplasia. Retroflexed views of the LES disclosed a small sliding hiatal hernia there was a mild gastropathy with a few scattered subtle erosive features. Antral biopsies were acquired for exclusion of H pylori. 3. Esophagus: The squamocolumnar junction correlated with the top of the gastric folds. The GE junction was at approximately 41 cm from the incisors. No acute erosive changes no strictures no mass lesions. Endoscopic diagnosis 1. Subtle sliding hiatal hernia 2. Mild erosive gastropathy Post-procedure Plan for aftercare: 1. Await histopathology 2. Okay to resume Pradaxa starting tomorrow. 3. If there are no features from a histologic standpoint to explain an iron-deficiency anemia, capsule endoscopy would be the appropriate next step. Disposition: PACU
[2022-04-30 09:24] VITALS: BP 92/53; PULSE 58; RESP 16; TEMP 36.8; O2SAT 95
[2022-04-30 09:29] VITALS: BP 97/59; PULSE 55; RESP 16; O2SAT 95
[2022-04-30 09:34] VITALS: BP 109/74; PULSE 65; RESP 15; O2SAT 97
[2022-04-30 09:39] VITALS: BP 125/75; PULSE 54; RESP 17; TEMP 36.3; O2SAT 98
[2022-04-30 09:50] VITALS: BP 125/66; PULSE 60; RESP 18; TEMP 36.7; O2SAT 99
== END 2022-04-30 10:15 | disposition home or self-care (01) ==
PROVIDERS: PCP Nurse Practitioner; Referring Provider Internal Medicine Gastroenterology; Visit Provider Internal Medicine Gastroenterology
PROC: 0DJ08ZZ Inspection of Upper Intestinal Tract, Via Natural or Artificial Opening Endoscopic (ICD-10-PCS; CPT 43235; principal; 2022-04-30 09:00)
DX: D50.9 Iron deficiency anemia, unspecified (principal); K31.9 Disease of stomach and duodenum, unspecified; K44.9 Diaphragmatic hernia without obstruction or gangrene; K29.50 Unspecified chronic gastritis without bleeding; K31.A0 Gastric intestinal metaplasia, unspecified
CPT/HCPCS: 43239; J2704; J3010

== ENCOUNTER → 2022-05-10 09:51 | Outpatient (CLI) | payer OTHER, SELFPAY ==
[2022-05-10 12:06] LABS: Add Manual Diff / Slide Review NO; Basophils Absolute Auto 0 /uL (0-100); Basophils Percent Auto 0.7 % (0-2); Eosinophils Absolute Auto 0 /uL (0-450); Eosinophils Percent Auto 0.5 % (2-4); Hematocrit 38.6 % (36-46); Hemoglobin 12.2 g/dL (12.0-16.0); Lymphocytes Absolute Auto 1600 /uL (1100-4500); Lymphocytes Percent Auto 21.9 % (25-40); Mean Corpuscular HGB Conc 31.5 % (30-36); Mean Corpuscular Hemoglobin 24.1 PG (26-34); Mean Corpuscular Volume 76.4 fL (80-100); Monocytes Absolute Auto 600 /uL (0-900); Monocytes Percent Auto 8.2 % (3-14); Neutrophils Absolute Auto 5000 /uL (1500-7000); Neutrophils Percent Auto 68.7 % (50-75); Platelet Count 258 X10^3/uL (150-400); Red Blood Cell Count 5.05 X10^6/uL (4.0-5.2); Red Cell Distribution Width 30.2 % (11.6-14.8); White Blood Cell Count 7.3 X10^3/uL (4.5-11.0)
[2022-05-10 12:25] LABS: BUN Creatinine Ratio 26.1 (6-22); Blood Urea Nitrogen 18 mg/dL (7-17); Estimated Glomerular Filt Rate > 60 mL/min (>60)
[2022-05-10 13:00] LABS: Anisocytosis 3+
[2022-05-10 13:08] LABS: Hypochromasia 1+; Microcytosis 1+
== END ==
PROVIDERS: PCP Nurse Practitioner; Referring Provider Student in an Organized Health Care Education/Training Program; Visit Provider Student in an Organized Health Care Education/Training Program
DX: D50.9 Iron deficiency anemia, unspecified (principal)
CPT/HCPCS: 36415; 82565; 84520; 85025

== ENCOUNTER → 2022-05-11 13:18 | Outpatient (CLI) | payer OTHER, SELFPAY ==
--- NOTE | 2022-05-11 15:21 | DI.CT.S_ITS ---
PROCEDURE: CT ABDOMEN PELVIS W CON INDICATIONS: Epigastric pain TECHNIQUE: After the administration of oral and IV contrast, axial sections were acquired from the lung bases to the pubic symphysis. Coronal and sagittal reformats were performed. For radiation dose reduction, the following was used: automated exposure control, adjustment of mA and/or kV according to patient size. COMPARISON: None. FINDINGS: Image quality: Excellent. Lung bases: Bibasilar atelectasis Heart: No significant findings. Coronary atherosclerotic vascular calcifications are noted. ABDOMEN: Liver: There is diffuse hypoattenuation of the liver parenchyma relative to the spleen compatible with hepatic steatosis. Gallbladder: Gallstone identified within the contracted gallbladder. No evidence for gallbladder wall thickening or pericholecystic inflammation. Biliary ducts: No intrahepatic or extrahepatic biliary ductal dilatation identified. Pancreas: Possible 5 mm hypodense lesion versus summation artifact with adjacent fat involving the pancreatic neck. This finding is seen on axial image 24/series 2. No pancreatic ductal dilatation. No peripancreatic inflammation. Homogeneous pancreatic enhancement. Spleen: Unremarkable. Adrenal Glands: Unremarkable. Kidneys and Ureters: Kidneys are symmetric in size and enhancement, and there is no obstructive uropathy. No perinephric inflammatory changes. Ureters are normal in course and caliber. A few bilateral renal hypodensities which are too small to accurately characterize but statistically represent simple renal cysts. Stomach and Bowel: Stomach, small bowel loops, and colon are unremarkable. Scattered colonic diverticulosis without acute diverticulitis. Normal appearance of the appendix. Peritoneum: No abnormal intraperitoneal fluid. No free air. Ventral Wall: There is a fat-containing umbilical hernia without acute inflammation. Abdominal Nodes: No retroperitoneal or mesenteric adenopathy by size criteria. Vessels: Scattered atherosclerotic calcifications of the abdominal aorta and iliac vessels without aneurysmal dilatation. The inferior vena cava appears patent. PELVIS: Pelvic Organs: Unremarkable. Bladder: Urinary bladder thickness appears normal for degree of distention. No perivesicular inflammatory stranding. Pelvic Nodes: No enlarged lymph nodes. Miscellaneous: No inguinal hernias are seen. Bones: No acute vertebral body compression fractures. Multilevel spondylitic changes throughout the imaged spine. No suspicious osseous lesions. IMPRESSION: CT abdomen and pelvis without acute abnormalities. Possible 5 mm hypodensity within the pancreatic neck which may represent a small pancreatic lesion versus volume averaging artifact. Recommend further characterization with contrast enhanced abdominal CT or MRI using pancreatic mass protocol. Cholelithiasis without CT evidence for acute cholecystitis. Atherosclerotic vascular disease. Hepatic steatosis. Colonic diverticulosis without acute diverticulitis. Dictated by: Immanuel Espinoza M.D. on 05/11/2022 at 18:04 Approved by: Immanuel Espinoza M.D. on 05/11/2022 at 18:15
== END ==
PROVIDERS: PCP Nurse Practitioner; Referring Provider Student in an Organized Health Care Education/Training Program; Visit Provider Student in an Organized Health Care Education/Training Program
DX: D50.9 Iron deficiency anemia, unspecified (principal); R10.13 Epigastric pain; R11.2 Nausea with vomiting, unspecified; K57.90 Diverticulosis of intestine, part unspecified, without perforation or abscess without bleeding; K42.9 Umbilical hernia without obstruction or gangrene; K80.20 Calculus of gallbladder without cholecystitis without obstruction; K76.0 Fatty (change of) liver, not elsewhere classified; I25.10 Atherosclerotic heart disease of native coronary artery without angina pectoris
CPT/HCPCS: 74177; Q9967

== ENCOUNTER → 2022-06-07 08:06 | Outpatient (CLI) | payer OTHER, SELFPAY ==
--- NOTE | 2022-06-07 | DI.MRI.S_ITS ---
PROCEDURE: MR ABDOMEN WO/W CON INDICATIONS: ABNORMAL ABDOMINAL IMAGING/PANCREATIC ABNORMALITY TECHNIQUE: Coronal HASTE, axial 2D FLASH in- and [id number]; axial breath-hold T2 FSE with fat saturation from the hepatic dome to the iliac crests. Oblique coronal thin-slice and radial thick slab HASTE through the biliary system. Dynamic axial VIBE during administration of contrast. Post-contrast coronal VIBE or 2D FLASH with fat saturation from the hepatic dome to the iliac crests. Optional diffusion weighted imaging and ADC may be performed. COMPARISON: [facility], CT, CT ABDOMEN PELVIS W CON, 05/11/2022, 15:09. FINDINGS: Image quality: Excellent. Pancreas and biliary system: No pancreatic ductal dilation. No suspicious enhancing lesion. There are multiple cystic lesions at the pancreatic head and uncinate process, the largest on series 9, image 48 measuring 5 millimeters. Imaging every 2 years for follow-up for a total of 10 years may be obtained at clinical discretion and depending on clinical context. No further follow-up is also reasonable in consultation with the patient and overall clinical context. CBD is prominent measuring 5 millimeters. No obstructing mass is identified. Cholelithiasis. There is a suspected fatty lobule/cleft at the uncinate process. Solid organs: No suspicious hepatic lesions. Suspected perfusion anomaly at the far left edge of the liver. No splenomegaly. There is adrenal thickening without discrete nodule. There are renal cysts. Nodes and vessels: Prominent, non-specific lymph nodes are present that are not enlarged by size criteria. No abdominal aortic aneurysm. Bowel and peritoneum: No pathologic ascites or bowel obstruction. Lung bases: No basal effusion. Lungs are not well evaluated on MRI. There is suspected basal atelectasis. Bones and soft tissues: Scoliosis and degenerative changes. No suspicious lesion. IMPRESSION: Small pancreatic cystic lesions and recommendations as above. Other incidental findings as above. Approved by: Josh Mata M.D. on 06/07/2022 at 12:39
== END ==
PROVIDERS: PCP Nurse Practitioner; Referring Provider Student in an Organized Health Care Education/Training Program; Visit Provider Student in an Organized Health Care Education/Training Program
DX: R93.5 Abnormal findings on diagnostic imaging of other abdominal regions, including retroperitoneum (principal); K86.9 Disease of pancreas, unspecified
CPT/HCPCS: 74183; A9579

== ENCOUNTER → 2022-06-07 09:27 | Outpatient (CLI) | payer OTHER, SELFPAY ==
[2022-06-07 11:16] LABS: Add Manual Diff / Slide Review NO; Basophils Absolute Auto 0 /uL (0-100); Basophils Percent Auto 0.7 % (0-2); Eosinophils Absolute Auto 100 /uL (0-450); Eosinophils Percent Auto 1.8 % (2-4); Hematocrit 38.9 % (36-46); Hemoglobin 12.4 g/dL (12.0-16.0); Lymphocytes Absolute Auto 1300 /uL (1100-4500); Lymphocytes Percent Auto 22.1 % (25-40); Mean Corpuscular Hemoglobin 25.8 PG (26-34); Mean Corpuscular Volume 80.6 fL (80-100); Monocytes Absolute Auto 500 /uL (0-900); Monocytes Percent Auto 8.4 % (3-14); Neutrophils Absolute Auto 3800 /uL (1500-7000); Platelet Count 265 X10^3/uL (150-400); Red Blood Cell Count 4.82 X10^6/uL (4.0-5.2); Red Cell Distribution Width 25.3 % (11.6-14.8); White Blood Cell Count 5.7 X10^3/uL (4.5-11.0)
[2022-06-07 11:45] LABS: Anisocytosis 1+
== END ==
PROVIDERS: PCP Nurse Practitioner; Referring Provider Nurse Practitioner; Visit Provider Nurse Practitioner
DX: D64.9 Anemia, unspecified (principal)
CPT/HCPCS: 36415; 85025

== ENCOUNTER → 2022-06-21 08:02 | Outpatient (CLI) | payer OTHER, SELFPAY ==
[2022-06-21 09:50] LABS: Hematocrit 43.1 % (36-46); Hemoglobin 13.8 g/dL (12.0-16.0); Mean Corpuscular Hemoglobin 26.5 PG (26-34); Mean Corpuscular Volume 82.7 fL (80-100); Platelet Count 244 X10^3/uL (150-400); Red Blood Cell Count 5.22 X10^6/uL (4.0-5.2); Red Cell Distribution Width 20.9 % (11.6-14.8); White Blood Cell Count 6.9 X10^3/uL (4.5-11.0)
[2022-06-21 10:04] LABS: Anisocytosis 1+; Neutrophils Absolute Manual 3864 /uL (3000-5900); Total Cells Counted 100
[2022-06-21 10:05] LABS: HEMOLYSIS < 15 (0-50); Iron 69 ug/dL (37-170)
[2022-06-21 10:08] LABS: HEMOLYSIS < 15 (0-50)
[2022-06-21 10:15] LABS: Percent Iron Saturation 16 % (15-50); Total Iron Binding Capacity 431 ug/dL (265-497); Transferrin 339 mg/dL (206-381)
[2022-06-21 10:32] LABS: BUN Creatinine Ratio 18.9 (6-22); Blood Urea Nitrogen 14 mg/dL (7-17); Calcium 9.6 mg/dL (8.4-10.2); Carbon Dioxide 28 mmol/L (22-32); Chloride 103 mmol/L (98-107); Estimated Glomerular Filt Rate > 60 mL/min (>60); Glucose 78 mg/dL (80-110); Potassium 4.1 mmol/L (3.4-5.1); Sodium 143 mmol/L (137-145)
[2022-06-21 11:08] LABS: Ferritin 9 ng/mL (11-264)
[2022-06-21 11:20] LABS: Folate > 20.0 ng/mL (2.76-20.0); Vitamin B12 907 pg/mL (239-931)
[2022-06-23 12:35] LABS: Occult Blood 1 Negative (Negative); Occult Blood 2 Negative (Negative); Occult Blood 3 Negative (Negative)
== END ==
PROVIDERS: PCP Nurse Practitioner; Referring Provider Physician Assistant Medical; Visit Provider Physician Assistant Medical
DX: R00.2 Palpitations (principal); I48.0 Paroxysmal atrial fibrillation; D50.0 Iron deficiency anemia secondary to blood loss (chronic); D50.9 Iron deficiency anemia, unspecified; K92.1 Melena
CPT/HCPCS: 36415; 80048; 82270; 82607; 82728; 82746; 83540; 83550; 83735; 85025; 85045; 93005

== ENCOUNTER 2022-06-25 08:19 | Emergency (ER) | payer OTHER, SELFPAY ==
[2022-06-25] VITALS (12 sets, daily range): BP systolic 109–161; BP diastolic 63–74; PULSE 68–121; RESP 16–28; O2SAT 96–99; BMI 20.2
[2022-06-25 09:01] LABS: Add Manual Diff / Slide Review NO; Basophils Absolute Auto 0 /uL (0-100); Basophils Percent Auto 0.3 % (0-2); Eosinophils Absolute Auto 0 /uL (0-450); Eosinophils Percent Auto 0.2 % (2-4); Hematocrit 39.4 % (36-46); Hemoglobin 12.9 g/dL (12.0-16.0); Lymphocytes Absolute Auto 1200 /uL (1100-4500); Lymphocytes Percent Auto 13.5 % (25-40); Mean Corpuscular HGB Conc 32.8 % (30-36); Mean Corpuscular Hemoglobin 26.7 PG (26-34); Mean Corpuscular Volume 81.5 fL (80-100); Monocytes Absolute Auto 800 /uL (0-900); Monocytes Percent Auto 8.9 % (3-14); Neutrophils Absolute Auto 6800 /uL (1500-7000); Neutrophils Percent Auto 77.1 % (50-75); Platelet Count 258 X10^3/uL (150-400); Red Blood Cell Count 4.83 X10^6/uL (4.0-5.2); Red Cell Distribution Width 17.1 % (11.6-14.8); White Blood Cell Count 8.8 X10^3/uL (4.5-11.0)
--- NOTE | 2022-06-25 09:02 | ED.GENADULT ---
HPI - General Adult General Chief complaint: Abdominal Pain Stated complaint: gallstone pain sent by DR newsome Time Seen by Provider: 06/25/22 08:20 Source: patient Mode of arrival: Ambulatory History of Present Illness HPI narrative: Patient is a 76-year-old female. She does have a history of paroxysmal atrial fibrillation. She was on Pradaxa but is currently not on any anticoagulation. She was taken off of this because she was having issues with anemia and there was concern about GI bleeding. This was done in accordance with her primary provider and also her commission sales associate. She is also on iron. She has not had an upper endoscopy or colonoscopy for evaluation of this. This was planned at 1 point but was never followed through with she states that the provider who was going to do it did not think that she needed it. She did recently have an outpatient fecal occult blood which did not show any blood in her stool. In workup of her anemia she had a CT scan performed of her abdomen. This showed what appeared to be cyst on her pancreas. She had a subsequent MR of her abdomen which showed pancreatic cysts but also gallstones. There were no other signs of acute cholecystitis at the time. She is here because she has right upper quadrant abdominal pain. It is worse after eating. It comes in ?waves? is been happening more consistently since Saturday. She has had this exact discomfort multiple time for ?years ?she never knew when it was never had it evaluated. She was told by her primary doctor was most likely related to the gallstones were seen incidentally on the abdominal MRI. She is yet to have these evaluated by General surgery. She also has palpitations. This is separate from why she is here today. She does have a ZIO patch in place. She is under the care by Cardiology for this. These palpitations occur frequently. She occasionally gets lightheaded from them but not always. She denies any chest pain or shortness of breath. No fevers. No vomiting. No change in bowel habits. No urinary changes. Related Data Home Medications Medication Instructions Recorded Confirmed digestive enzymes 1 cap PO AC ##0 08/16/17 06/25/22 dofetilide 250 mcg capsule 250 mcg PO Q12H 12/25/18 06/25/22 Calcium With D 1 tab PO BID 04/06/19 06/25/22 diltiazem HCl 180 mg 180 mg PO DAILY 04/06/19 06/25/22 capsule,extended release 24 hr dabigatran etexilate 150 mg 150 mg PO BID ATRIAL FLUTTER 08/01/21 06/25/22 capsule (Pradaxa) mupirocin 2 % topical ointment 1 applic topical 08/01/21 06/25/22 Resmed Aircurve 10 BIPAP #1 ea 03/13/22 06/25/22 ursodiol 250 mg tablet 250 mg PO BID 06/25/22 06/25/22 Previous Rx's Medication Instructions Recorded ferrous sulfate, dried 168 mg (50 168 mg PO BID #180 tabs 03/08/22 mg iron) tablet,extended release doxepin 3 mg tablet See Rx Instructions PO .COMPLEX 04/30/22 PRN sleep #270 tabs atorvastatin 20 mg tablet See Rx Instructions .Route 05/23/22 .COMPLEX #90 tabs progesterone micronized 100 mg See Rx Instructions .Route 06/10/22 capsule .COMPLEX #270 caps hydrocodone 5 mg-acetaminophen 325 1 tab PO Q4-6H PRN pain #10 tabs 06/25/22 mg tablet Allergies Allergy/AdvReac Type Severity Reaction Status Date / Time lactose Allergy Unknown Verified 06/25/22 08:06 Review of Systems Review of Systems ROS Unobtainable: All systems reviewed & are unremarkable except as noted in HPI and below Patient History Medical History Atrial flutter 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 Sister No problems noted. Family/Other No problems noted. Family/Other No problems noted. Social History household members: spouse Smoking Status: Current every day smoker alcohol intake: current substance use type: marijuana Smoking Status: Current every day smoker alcohol intake frequency: a few times a week Substance Use Type: marijuana Exam Initial Vital Signs Initial Vital Signs: Vital Signs Pulse Rate 121 H 06/25/22 08:25 Respiratory Rate 16 06/25/22 08:25 Blood Pressure 161/73 H 06/25/22 08:25 Pulse Oximetry 99 06/25/22 08:25 Oxygen Delivery Method 06/25/22 08:25 Const General: cooperative and comfortable HENMT Head: normal to inspection and atraumatic Chest Chest: normal inspection of the chest Resp Effort & Inspection: normal respiratory effort Auscultation: clear to auscultation bilaterally Cardio Rate: tachycardic Rhythm: regular rhythm GI Inspection: normal to inspection Palpation: soft, No firm, No guarding and tender (Right upper quadrant yet) Skin General: no rashes or lesions noted Neuro General: patient alert, patient awake and moves all extremities Extrem General: normal to inspection and capillary refill normal Psych Appearance: grossly normal and well kempt Course Orders Ordered: ED Orders 06/25/22 08:45 Complete Blood Count AUTO DIFF Stat Comprehensive Metabolic Panel Stat Lipase Stat MG [Magnesium] Stat Troponin & CK Cardiac Panel Stat 06/25/22 09:03 US abdomen limited Stat Vital Signs Vital signs: Vital Signs - 8 hr 06/25/22 08:25 06/25/22 08:27 06/25/22 08:30 Pulse Rate 121 H 71 68 Respiratory Rate 16 Blood Pressure 161/73 H Pulse Oximetry 99 98 97 Oxygen Delivery Method Room Air 06/25/22 09:00 06/25/22 09:30 06/25/22 10:02 Pulse Rate 77 105 H Respiratory Rate 28 H Blood Pressure Pulse Oximetry 96 96 97 Oxygen Delivery Method 06/25/22 10:30 06/25/22 11:00 06/25/22 11:19 Pulse Rate 86 100 H Respiratory Rate 23 Blood Pressure 131/74 Pulse Oximetry 96 97 Oxygen Delivery Method 06/25/22 11:19 06/25/22 11:30 06/25/22 12:00 Pulse Rate 84 102 H 115 H Respiratory Rate 20 18 22 Blood Pressure Pulse Oximetry 97 97 96 Oxygen Delivery Method Room Air Medical Decision Making Lab Data Lab results reviewed: Yes I reviewed the patient's lab results. Result diagrams: 06/25/22 08:45 06/25/22 08:45 Labs: Lab Results 06/25/22 06/25/22 06/25/22 Range/Units 08:45 08:45 08:45 WBC 8.8 (4.5-11.0) X10^3/uL RBC 4.83 (4.0-5.2) X10^6/uL Hgb 12.9 (12.0-16.0) g/dL Hct 39.4 (36-46) % MCV 81.5 (80-100) fL MCH 26.7 (26-34) PG MCHC 32.8 (30-36) % RDW 17.1 H (11.6-14.8) % Plt Count 258 (150-400) X10^3/uL Neut % (Auto) 77.1 H (50-75) % Lymph % (Auto) 13.5 L (25-40) % [place] % (Auto) 8.9 (3-14) % Eos % (Auto) 0.2 L (2-4) % Baso % (Auto) 0.3 (0-2) % Neut # (Auto) 6800 (6722-4958) /uL Lymph # (Auto) 1200 (4111-3540) /uL [place] # (Auto) 800 (0-900) /uL Eos # (Auto) 0 (0-450) /uL Baso # (Auto) 0 (0-100) /uL Sodium 135 L (137-145) mmol/L Potassium 3.7 (3.4-5.1) mmol/L Chloride 97 L (98-107) mmol/L Carbon Dioxide 28 (22-32) mmol/L BUN 17 (7-17) mg/dL Creatinine 0.79 (0.52-1.04) mg/dL Estimated GFR > 60 (>60) mL/min BUN/Creatinine Ratio 21.5 (6-22) Glucose 116 H (80-110) mg/dL Calcium 9.2 (8.4-10.2) mg/dL Magnesium (1.6-2.3) mg/dL Total Bilirubin 0.4 (0.2-1.3) mg/dL AST 18 (14-36) IU/L ALT 21 (<35) IU/L Alkaline Phosphatase 68 (38-126) U/L Total Creatine Kinase 35 (30-135) U/L CK-MB (CK-2) TNP CK-MB (CK-2) Rel Index TNP Troponin I < 0.012 (0.01-0.034) ng/mL Total Protein 7.4 (6.3-8.2) g/dL Albumin 4.2 (3.5-5.0) g/dL Globulin 3.2 (1.7-4.1) g/dL Albumin/Globulin Ratio 1.3 (1.0-2.8) Lipase 32 (23-300) U/L 06/25/22 Range/Units 08:45 WBC (4.5-11.0) X10^3/uL RBC (4.0-5.2) X10^6/uL Hgb (12.0-16.0) g/dL Hct (36-46) % MCV (80-100) fL MCH (26-34) PG MCHC (30-36) % RDW (11.6-14.8) % Plt Count (150-400) X10^3/uL Neut % (Auto) (50-75) % Lymph % (Auto) (25-40) % [place] % (Auto) (3-14) % Eos % (Auto) (2-4) % Baso % (Auto) (0-2) % Neut # (Auto) (1270-2615) /uL Lymph # (Auto) (8956-0488) /uL [place] # (Auto) (0-900) /uL Eos # (Auto) (0-450) /uL Baso # (Auto) (0-100) /uL Sodium (137-145) mmol/L Potassium (3.4-5.1) mmol/L Chloride (98-107) mmol/L Carbon Dioxide (22-32) mmol/L BUN (7-17) mg/dL Creatinine (0.52-1.04) mg/dL Estimated GFR (>60) mL/min BUN/Creatinine Ratio (6-22) Glucose (80-110) mg/dL Calcium (8.4-10.2) mg/dL Magnesium 1.8 (1.6-2.3) mg/dL Total Bilirubin (0.2-1.3) mg/dL AST (14-36) IU/L ALT (<35) IU/L Alkaline Phosphatase (38-126) U/L Total Creatine Kinase (30-135) U/L CK-MB (CK-2) CK-MB (CK-2) Rel Index Troponin I (0.01-0.034) ng/mL Total Protein (6.3-8.2) g/dL Albumin (3.5-5.0) g/dL Globulin (1.7-4.1) g/dL Albumin/Globulin Ratio (1.0-2.8) Lipase (23-300) U/L Urine Dip Bedside Urine Glucose Negative Bedside Urine Bilirubin - Negative Bedside Urine Ketone - Negative Urine Specific [place] 1.005 Bedside Urine Occult Blood +/- Bedside Urine pH 6.0 Bedside Urine Protein - Negative Bedside Urine Urobilinogen - Negative Bedside Urine Nitrite - Negative Bedside Urine Leukocytes - Negative Esterase Point of care testing: Urine Dip Bedside Urine Glucose Negative Bedside Urine Bilirubin - Negative Bedside Urine Ketone - Negative Urine Specific [place] 1.005 Bedside Urine Occult Blood +/- Bedside Urine pH 6.0 Bedside Urine Protein - Negative Bedside Urine Urobilinogen - Negative Bedside Urine Nitrite - Negative Bedside Urine Leukocytes - Negative Esterase Imaging Data US - abdomen: Radiologist's Impression: [place] [address] Ultrasound Report Draft Patient: Brenda Bynum MR#: [id number] : 1945 Acct:[id number] Age/Sex: 76 / F Date of Service: 06/25/22 Loc: ED Accession Number: [id number] ?? Procedure: US abdomen limited Ordering Provider: Osmar Caicedo D.O. Caution: Report not yet finalized and possibly incomplete! ? ? PROCEDURE:? US ABDOMEN LIMITED ? INDICATIONS:? PAIN. KNOWN GALLSTONES. ? TECHNIQUE:? Real-time scanning was performed of the abdominal and retroperitoneal organs, with image documentation.? ? COMPARISON:? None. ? FINDINGS:? ? Liver:? Liver is normal in size and homogeneous in echotexture.? ? Gallbladder:? There are 2 calculi within the gallbladder lumen.? No gallbladder wall thickening.? Negative sonographic Restrepo sign. ? Biliary ducts:? Intrahepatic bile ducts are non-dilated.? Extrahepatic bile duct caliber measures 8 mm.? Normal is 6-7 mm or less in diameter, or 10 mm or less post-cholecystectomy.? ? Pancreas:? Visualized portions of the pancreas are sonographically normal.? ? Kidneys:? Right renal cyst measuring 10 mm. ? Miscellaneous:? No free abdominal fluid.? ? ? IMPRESSION:? 1. Cholelithiasis.? No evidence of cholecystitis. 2. Mildly prominent common bile duct.? MRCP may be helpful to assess for choledocholithiasis or obstructing biliary neoplasm, if clinically indicated. ? Dictated by: Randal Aiken M.D. on 06/25/2022 at 10:32 ? Transcribed by: NGUYỄN on 06/25/2022 at 10:34 ECG Data Attestation: I personally reviewed and interpreted this ECG as follows: Interpretation: Sinus rhythm Occasional PACs Ventricular rate 83 One PVC Incomplete right bundle branch block QTC 517 milliseconds Normal QRS MDM Narrative Medical decision making narrative: She is had no right upper quadrant pain since arrival. Her LFTs and lipase are unremarkable. Right upper quadrant ultrasound shows cholelithiasis without signs of acute cholecystitis. I discussed this with her. Will give her the information to follow-up with general surgery to discuss having a cholecystectomy. We discussed diet changes and will send her home with pain medication. She was given return precautions. Also since she was here she is been having her palpitations. On rhythm strips it appears that it is SVT with aberrancy and less likely ventricular tachycardia. She feels some these and does not feel others. She is also sometimes symptomatic (lightheadedness) and other times has no symptoms. No chest pain. Blood pressure is unremarkable. I discussed this with Dr. Atkins who is her commission sales associate. He recommended increasing her diltiazem. Her CBC is also unchanged with regard to her H&H. She stated that her last hemoccult test was negative. Dr. Atkins recommended that if it is okay with her primary doctor that she start back on her Pradaxa. Discharge Plan Departure Patient Disposition: Home Clinical Impression: Cholelithiasis Instructions: DI for Gallstones Activity Restrictions/Additional Instructions: Dr. Atkins would like you to increase your diltiazem from 180 mg a day to 180 mg 2 times a day. He would like you to keep your dofetilide the same. He also recommended that if your blood counts are stable in your no longer having any blood in your stool that you restart your Pradaxa. This is a discussion that you should have with your primary provider. I also recommend that you follow-up with General surgery with regard to your gallbladder as you may have to have your gallbladder removed. Return to the emergency department for any new or worsening symptoms. Prescriptions: New hydrocodone-acetaminophen 5-325 mg tablet 1 tab PO Q4-6H PRN (Reason: pain) Qty: 10 0RF No Action digestive enzymes 1 cap PO AC Qty: 0 ferrous sulfate, dried 168 mg (50 mg iron) tablet extended release 168 mg PO BID Qty: 180 1RF doxepin 3 mg tablet See Rx Instructions PO .COMPLEX PRN (Reason: sleep) Qty: 270 1RF Rx Instructions: Take 1 tab at bedtime for sleep, if ineffective, ok to increase by 3mg/24 hours to max dosing 9mg/day atorvastatin 20 mg tablet See Rx Instructions .ROUTE .COMPLEX Qty: 90 2RF Dose Instruction: take 1 tablet by mouth every evening Rx Instructions: take 1 tablet by mouth every evening progesterone micronized 100 mg capsule See Rx Instructions .ROUTE .COMPLEX Qty: 270 3RF Dose Instruction: take 1 capsule by mouth at bedtime FOR 30 DAYS. MAY INCREASE BY 100MG EVERY NIGHT TO MAX DAILY DOSE OF 300MG Rx Instructions: take 1 capsule by mouth at bedtime FOR 30 DAYS. MAY INCREASE BY 100MG EVERY NIGHT TO MAX DAILY DOSE OF 300MG mupirocin 2 % ointment 1 applic topical Label Comments: In combination w/ 2 other medications from [facility] called Rosacea Skin Gel Treatment ursodiol 250 mg tablet 250 mg PO BID diltiazem HCl 180 mg Capsule,Extended Release 24hr 180 mg PO DAILY Calcium With D 1 tab PO BID Pradaxa 150 mg capsule 150 mg PO BID Hold Instructions: per Dr. Atkins dofetilide 250 mcg capsule 250 mcg PO Q12H (DME) Resmed Aircurve 10 BIPAP See Rx Instructions Qty: 1 Dose Instruction: As directed Rx Instructions: Pressure: IPAP 12 EPAP 7 cmH2O DME: [employer] [facility]AM: 07/08/17 Referrals: Jessica Dobbs ARNP [Primary Care Provider] -
--- NOTE | 2022-06-25 09:03 | DI.US.S_ITS ---
PROCEDURE: US ABDOMEN LIMITED INDICATIONS: PAIN. KNOWN GALLSTONES. TECHNIQUE: Real-time scanning was performed of the abdominal and retroperitoneal organs, with image documentation. COMPARISON: None. FINDINGS: Liver: Liver is normal in size and homogeneous in echotexture. Gallbladder: There are 2 calculi within the gallbladder lumen. No gallbladder wall thickening. Negative sonographic Resrtepo sign. Biliary ducts: Intrahepatic bile ducts are non-dilated. Extrahepatic bile duct caliber measures 8 mm. Normal is 6-7 mm or less in diameter, or 10 mm or less post-cholecystectomy. Pancreas: Visualized portions of the pancreas are sonographically normal. Kidneys: Right renal cyst measuring 10 mm. Miscellaneous: No free abdominal fluid. IMPRESSION: 1. Cholelithiasis. No evidence of cholecystitis. 2. Mildly prominent common bile duct. MRCP may be helpful to assess for choledocholithiasis or obstructing biliary neoplasm, if clinically indicated. Dictated by: Randal Aiken M.D. on 06/25/2022 at 10:32 Transcribed by: NGUYỄN on 06/25/2022 at 10:34 Approved by: Randal Aiken M.D. on 06/25/2022 at 10:47
[2022-06-25 09:09] LABS: Alanine Aminotransferase 21 IU/L (<35); Albumin 4.2 g/dL (3.5-5.0); Albumin Globulin Ratio 1.3 (1.0-2.8); Alkaline Phosphatase 68 U/L (38-126); Aspartate Aminotransferase 18 IU/L (14-36); BUN Creatinine Ratio 21.5 (6-22); Bilirubin Total 0.4 mg/dL (0.2-1.3); Blood Urea Nitrogen 17 mg/dL (7-17); Calcium 9.2 mg/dL (8.4-10.2); Carbon Dioxide 28 mmol/L (22-32); Chloride 97 mmol/L (98-107); Creatine Kinase 35 U/L (30-135); Estimated Glomerular Filt Rate > 60 mL/min (>60); Globulin 3.2 g/dL (1.7-4.1); Glucose 116 mg/dL (80-110); HEMOLYSIS < 15 (0-50); Lipase 32 U/L (23-300); Potassium 3.7 mmol/L (3.4-5.1); Sodium 135 mmol/L (137-145); Total Protein 7.4 g/dL (6.3-8.2)
[2022-06-25 09:10] LABS: Magnesium 1.8 mg/dL (1.6-2.3)
[2022-06-25 09:21] LABS: Troponin I < 0.012 ng/mL (0.01-0.034)
== END 2022-06-25 12:33 | disposition home or self-care (01) ==
PROVIDERS: Emergency Provider Emergency Medicine; PCP Nurse Practitioner
DX: K80.20 Calculus of gallbladder without cholecystitis without obstruction (principal)
CPT/HCPCS: 36415; 76705; 80053; 81003; 82550; 83690; 83735; 84484; 85025; 93005; 93010; 99284

== ENCOUNTER → 2022-07-06 08:03 | Outpatient (CLI) | payer OTHER, SELFPAY ==
[2022-07-06 10:09] LABS: Basophils Absolute Auto 0 /uL (0-100); Basophils Percent Auto 0.6 % (0-2); Eosinophils Absolute Auto 100 /uL (0-450); Eosinophils Percent Auto 1.5 % (2-4); Hematocrit 38.4 % (36-46); Hemoglobin 12.2 g/dL (12.0-16.0); Lymphocytes Absolute Auto 1700 /uL (1100-4500); Mean Corpuscular HGB Conc 31.7 % (30-36); Mean Corpuscular Hemoglobin 26.1 PG (26-34); Mean Corpuscular Volume 82.4 fL (80-100); Monocytes Absolute Auto 500 /uL (0-900); Neutrophils Absolute Auto 4500 /uL (1500-7000); Neutrophils Percent Auto 65.9 % (50-75); Platelet Count 316 X10^3/uL (150-400); Red Blood Cell Count 4.66 X10^6/uL (4.0-5.2); Red Cell Distribution Width 15.9 % (11.6-14.8); White Blood Cell Count 6.8 X10^3/uL (4.5-11.0)
[2022-07-06 10:15] LABS: Add Manual Diff / Slide Review SLIDE REVIEW
[2022-07-06 10:16] LABS: BUN Creatinine Ratio 15.9 (6-22); Blood Urea Nitrogen 11 mg/dL (7-17); Calcium 9.1 mg/dL (8.4-10.2); Carbon Dioxide 28 mmol/L (22-32); Chloride 103 mmol/L (98-107); Estimated Glomerular Filt Rate > 60 mL/min (>60); Glucose 74 mg/dL (80-110); HEMOLYSIS < 15 (0-50); Potassium 4.5 mmol/L (3.4-5.1); Sodium 142 mmol/L (137-145)
[2022-07-06 12:00] LABS: Anisocytosis 1+
[2022-07-06 12:01] LABS: Poikilocytosis 1+
== END ==
PROVIDERS: PCP Nurse Practitioner; Referring Provider Internal Medicine Cardiovascular Disease; Visit Provider Internal Medicine Cardiovascular Disease
DX: I49.5 Sick sinus syndrome (principal)
CPT/HCPCS: 36415; 80048; 85025

== ENCOUNTER → 2022-07-24 07:29 | Outpatient (CLI) | payer OTHER, SELFPAY ==
[2022-07-24 08:05] LABS: Add Manual Diff / Slide Review NO; Basophils Absolute Auto 100 /uL (0-100); Basophils Percent Auto 0.8 % (0-2); Eosinophils Absolute Auto 100 /uL (0-450); Eosinophils Percent Auto 1.2 % (2-4); Hematocrit 38.4 % (36-46); Hemoglobin 12.4 g/dL (12.0-16.0); Lymphocytes Absolute Auto 1500 /uL (1100-4500); Lymphocytes Percent Auto 18.4 % (25-40); Mean Corpuscular HGB Conc 32.3 % (30-36); Mean Corpuscular Hemoglobin 26.7 PG (26-34); Mean Corpuscular Volume 82.6 fL (80-100); Monocytes Absolute Auto 600 /uL (0-900); Monocytes Percent Auto 7.3 % (3-14); Neutrophils Absolute Auto 6000 /uL (1500-7000); Neutrophils Percent Auto 72.3 % (50-75); Platelet Count 211 X10^3/uL (150-400); Red Blood Cell Count 4.65 X10^6/uL (4.0-5.2); Red Cell Distribution Width 15.5 % (11.6-14.8); White Blood Cell Count 8.3 X10^3/uL (4.5-11.0)
[2022-07-24 08:29] LABS: HEMOLYSIS < 15 (0-50)
[2022-07-24 08:30] LABS: HEMOLYSIS < 15 (0-50)
[2022-07-24 08:35] LABS: Iron 54 ug/dL (37-170)
[2022-07-24 08:38] LABS: Alanine Aminotransferase 23 IU/L (<35); Albumin 3.9 g/dL (3.5-5.0); Albumin Globulin Ratio 1.4 (1.0-2.8); Alkaline Phosphatase 61 U/L (38-126); Aspartate Aminotransferase 17 IU/L (14-36); BUN Creatinine Ratio 21.9 (6-22); Bilirubin Total 0.2 mg/dL (0.2-1.3); Blood Urea Nitrogen 14 mg/dL (7-17); Calcium 8.9 mg/dL (8.4-10.2); Carbon Dioxide 27 mmol/L (22-32); Chloride 103 mmol/L (98-107); Cholesterol 138 mg/dL (140-199); Estimated Glomerular Filt Rate > 60 mL/min (>60); Globulin 2.7 g/dL (1.7-4.1); Glucose 92 mg/dL (80-110); HDL Cholesterol 44 mg/dL (40-60); LDL Cholesterol Calculated 77 mg/dL (<100); Potassium 3.9 mmol/L (3.4-5.1); Sodium 139 mmol/L (137-145); Total Protein 6.6 g/dL (6.3-8.2); Triglycerides 87 mg/dL (35-150)
[2022-07-24 15:33] LABS: Transferrin 309 mg/dL (206-381)
[2022-07-24 15:43] LABS: Percent Iron Saturation 13 % (15-50); Total Iron Binding Capacity 414 ug/dL (265-497)
[2022-07-24 17:48] LABS: Vitamin B12 826 pg/mL (239-931)
[2022-07-26 16:44] LABS: Hep C Virus Ab w/Reflex Quant NEGATIVE s/c (NEGATIVE)
== END ==
PROVIDERS: PCP Nurse Practitioner; Referring Provider Nurse Practitioner; Visit Provider Nurse Practitioner
DX: D50.0 Iron deficiency anemia secondary to blood loss (chronic) (principal); E78.00 Pure hypercholesterolemia, unspecified; K92.1 Melena; R19.5 Other fecal abnormalities; Z11.59 Encounter for screening for other viral diseases
CPT/HCPCS: 36415; 80053; 80061; 82607; 83540; 83550; 85025; 86803

== ENCOUNTER → 2022-07-26 13:37 | Outpatient (CLI) | payer OTHER, SELFPAY ==
[2022-07-26 15:56] LABS: COVID19 -Nasal RAPID Negative (Negative)
== END ==
PROVIDERS: PCP Nurse Practitioner; Visit Provider Surgery
DX: Z01.812 Encounter for preprocedural laboratory examination (principal); Z20.822 Contact with and (suspected) exposure to COVID-19
CPT/HCPCS: 87635; C9803

== ENCOUNTER 2022-07-27 12:10 | Day surgery (SDC) | payer OTHER, SELFPAY ==
[2022-07-25 10:10] VITALS: BMI 20.2
[2022-07-27] VITALS (18 sets, daily range): BP systolic 117–162; BP diastolic 59–113; PULSE 56–70; RESP 14–26; TEMP 36.1–37.5; O2SAT 93–100; BMI 20.2
--- NOTE | 2022-07-27 | PATH_ITS ---
[facility] Accession Number: [id number] . 01 Material submitted: . gallbladder - GALLBLADDER . 01 Diagnosis: Gallbladder, Cholecystectomy: Mild chronic calculous cholecystitis. Negative for dysplasia or malignancy. [facility] 07/31/2022 1410 Local . 01 Electronically signed: . Julia Vivas MD, Pathologist NPI- [id number] . 01 Gross description: . The specimen is received in formalin, labeled with the patient's name, , and gallbladder, and consists of an intact gallbladder measuring 6.4 x 3.0 x 2.1 cm with yellow, smooth serosa and a rough and unremarkable hepatic surface. The cystic duct is received patent, is inked blue, and no pericystic lymph node is identified. Opening the specimen reveals the lumen to contain a small amount of green viscous bile and three black, roughened calculi measuring up to 1.0 cm in greatest dimension, not grossly obstructing the cystic duct. The mucosa is green-hunter and trabecular with no pinpoint areas of discoloration, polyps or lesions identified. The hodge average 0.3 cm thick. Gas [employer] Checker sections to include the cystic duct margin and full-thickness sections are submitted in cassette A1. ([id number]) /FRR 07/28/20222006 Local . 01 Pathologist provided ICD-10: K80.50 . 01 CPT . 337579 Specimen Comment: A courtesy copy of this report has been sent to [phone] Performed at: 01 [facility] [address] [place] [address] [address] [facility], [place], [place] [id number] MD Solomon Fraga MD Phone: [phone]
[2022-07-27] MEDS: LACTATED RINGERS 1,000 ML 100 ML IV ×2 (13:16→17:19)
--- NOTE | 2022-07-27 15:31 | PM.PREOP ---
Pre-operative Note Interval Note History & Physical reviewed/Exam performed by Physician: Yes Changes to H&P: No
[2022-07-27] MEDS: CEFAZOLIN 2 GM/100 ML PREMIX 100 ML IV (15:45)
--- NOTE | 2022-07-27 16:02 | SUR.OPER ---
Supine on padded OR bed, head on pillow, safety belt at thigh, left arm padded and tucked at side. Right arm secured on padded arm board <90 degrees abduction. Legs uncrossed. Padded footboard in place. Tape over blanket to secure lower legs. Gel pad under bilateral heels.
[2022-07-27] MEDS: BUPIVACAINE 0.5% (PF) VIAL 30 ML INJ (16:15)
--- NOTE | 2022-07-27 16:39 | PM.OP.1 ---
Operative Date/Time/Diagnoses Date of procedure: 07/27/22 Time of procedure: 16:39 Pre-op diagnosis: Biliary colic Post-op diagnosis: same Procedure & Clinicians Procedure: Laparoscopic cholecystectomy Same procedure as scheduled: Yes Indications: Symptoms and radiographic findings consistent with biliary colic Surgeon: Calos Brand Click Yes if Unassisted: Yes Anesthesia Type: General Operative Notes Findings: Critical view of safety established. Gallbladder is largely unremarkable and contains stones Specimen(s): other (Gallbladder) Estimated Blood Loss (mL): 20 Procedure in detail: The patient was placed supine on the table and bilateral lower extremity compression devices were applied. Anesthesia was induced they were intubated with an endotracheal tube and received 2g of Ancef. A time-out was performed. They were prepped and draped in sterile fashion. An infraumbilical incision was made, the umbilical stalk was elevated and the fascia was sharply incised entering the abdomen atraumatically. A blunt tip 12mm balloon trocar was then inserted, pneumoperitoneum was established and inspection of the abdomen demonstrated no evidence of injury. They were placed head up and right side up and then a 11 mm port was placed high in the epigastrium and two 5mm in the right upper quadrant. The gallbladder was grasped by the fundus and retracted over the liver and retracted laterally by the infundibulum. Using electrocautery the lateral plane between the gallbladder and the liver was opened towards the fundus. The gallbladder was then retracted laterally and the medial plane was developed in the same manner. With the gallbladder mobilized the bottom of the cystic plate was visualized. The hepatocystic triangle was meticulosly skeletonized using hook electrocautery of all fat and fibrous tissue from both the front and the back. Only two structures were then clearly seen entering the gallbladder the cystic duct and the cystic artery. With the critical view of safety fully established the cystic duct was clipped twice proximally and once distally using the 10 mm Weck hemo clip applied under direct visualization and then sharply divided. The cystic artery was divided in the same fashion. The gallbladder was removed from the liver bed using electro cautery. The liver bed was then inspected for hemostasis and this was achieved. The abdomen was irrigated with sterile saline and inspection was made that showed the clips in good position. The specimen was removed using Endo-Catch. The abdomen was desufflated. The umbilical fascia was closed with 0 Vicryl in a [id number] fashion under direct visualization. Skin incisions were irrigated and closed with 4-0 Monocryl. 30 ml of 0.25% bupivacaine was infiltrated into the subcutaneous tissue of the incisions. The wounds were sealed with Dermabond. Patient emerged from anesthesia was extubated and transferred to recovery in stable condition. The sponge and instrument count at the end of the operation was correct. Complications: none Post-operative Condition: stable Disposition: same day surgery
[2022-07-27] MEDS: ONDANSETRON 4 MG/2 ML INJ IV ×2 (16:52→18:59)
--- NOTE | 2022-07-27 17:11 | SUR.PHASEI ---
Spoke with Dr Rosenthal covering for Nellie TAVAREZ. Report that patient with continued nausea after second dose of zofran. Medical history and meds reviewed. See new order.
--- NOTE | 2022-07-27 17:12 | SUR.PHASEI ---
1650 Spoke with Nellie TAVAREZ at bedside as patient reporting nausea. See new order.
[2022-07-27] MEDS: LORazepam 2 MG/ML INJ 0.25 MG IV (17:19)
--- NOTE | 2022-07-27 18:01 | PM.CALLCOV.1 ---
Call Coverage Note Note Date of Patient Contact: 07/27/22 Time of Patient Contact: 18:01 Narrative of Care Provided: 76F sp lap cholecystectomy today. Persistent nausea in PACU will bring in for observation and anticipate discharge home tomorrow.
--- NOTE | 2022-07-27 18:01 | SUR.PHASEI ---
1750: pt remains nausous at this time, vomiting in emesis bag, output is bile like.
--- NOTE | 2022-07-27 18:51 | PC.NURSE ---
Pt A&OX3, VSS, afebrile on RA. She reports feeling extremely nauseated and vomits upon arrival. MD Brand notified and new medications ordered for nausea. She is settled into the room, call light in,reach bed alarm on. Endorsed admission to oncoming shift.
[2022-07-27] MEDS: SCOPOLAMINE 1 PATCH TOP (18:59)
[2022-07-27] MEDS: OXYCODONE IR 5 MG TABLET PO (20:03)
[2022-07-27] MEDS: METOCLOPRAMIDE 10 MG/2 ML INJ 5 MG IV (20:52)
[2022-07-28] MEDS: ACETAMINOPHEN 325 MG TABLET 650 MG PO (00:04)
[2022-07-28] MEDS: OXYCODONE IR 5 MG TABLET PO (01:32)
[2022-07-28] MEDS: ONDANSETRON 4 MG/2 ML INJ IV (01:32)
[2022-07-28 04:13] VITALS: BP 129/72; PULSE 61; RESP 16; TEMP 36.8; O2SAT 100
--- NOTE | 2022-07-28 04:33 | PC.NURSE ---
Pt is AxOx4, needs 1 person assistance and cooperative. VSS except pt c/o feeling nauseaous and pain on abdomen. At times, pt doesn't know if it is pain or nausea. PRN Oxy 5mg PO given x2 with good effect. PRN Reglan IV given x 1, and IV zofran given x1. Pt vomited 125ml emesis right after she took her scheduled Tylenon around 1230. Since then, she did not throw up. Pt slept. Incision sites look fine, no drainage. Continue monitor.
[2022-07-28 08:00] VITALS: BP 123/61; PULSE 60; RESP 17; TEMP 36.7; O2SAT 95
--- NOTE | 2022-07-28 11:10 | CM.DANOTE ---
DCP: Case received, EMR reviewed and met with patient. Spouse, Josh, was also at bedside. Was able to obtain information regarding patient's baseline activity status prior to hospitalization. DCP assessment completed with information currently available. Patient is a 76 year old female who admitted yesterday morning to the care of the surgical team. PCP: SRINIVAS Grove. Payer: confirmed: [facility] [employer]. Patient came to the hospital via private vehicle for a surgical procedure. Patient had laparoscopic cholecystectomy. Patient has had history of biliary colic. Met with patient in her room. She is alert and oriented, pleasant, and was sitting up in bed. Spouse at bedside. Confirmed that they both reside on [address] here in [place]. She is independent at her baseline. P: DCP to continue to follow. Patient should be able to go home when deemed medically stable. Monica Leonard RN/Attendant [facility] Discharge Planning/Care Management CM Discharge Assessment Start: 07/28/22 11:08 Freq: Status: Active Protocol: Document 07/28/22 11:09 (Rec: 07/28/22 11:09 [id number]) Discharge Planning Assessment Assigned Surveyor Chain Helper Monica Leonard RN/Attendant [facility] Advance Directives? Yes: POLST History Provided By Patient,Medical Record Prior Living Arrangements House Household Members spouse Type of transporation used prior to Drives own vehicle admit Independent with ADL's Yes Is patient alert and oriented? Yes Caregiver for Another No Discharge Plan Home Transportation Arrangement Spouse Referrals Initiated None needed Whiteboard Updated in Patient Room with Yes name and ext. # of Surveyor Chain Helper Review Status In Process Next Review Type Continued Stay Review Pre-Anesthesia Assessment Start: 07/05/22 15:01 Freq: Status: Discharge Protocol: Document 07/25/22 10:10 CAB (Rec: 07/05/22 15:10 [facility] [id number]) Pre-Anesthesia Assessment Patient Information Reviewed Via Chart Review Comment COVID screen @ 07/26/22 Primary Care Provider Jessica Dobbs Seen Specialist in Last 12 Months Yes Specialist Seen Security Compliance Engineer,Emergency,General surgeon Primary Language Puerto Rican Preferred Language Puerto Rican Manager Contact Required No Height 5 ft 4 in Weight 118 lb Body Mass Index (BMI) 20.2 Hx Anesthesia Reactions No Hx Family Anesthesia Reaction No Hx Malignant Hyperthermia No Hx Blood Transfusion Reaction No Anesthesia Review Requested No Gearman No alcohol intake current alcohol intake frequency a few times a week Smoking Status Current every day smoker Substance Use Type marijuana Pain Present Pain Reported Comment RUQ Patient is completely paralyzed or No completely immobile Mental Status Oriented to own ability Hx Sleep Apnea Yes CPAP/BIPAP use prescribed and used routinely Currently Taking a Beta Tony No Hx Syncope or Dizziness Yes Anti-Coagulant Therapy Yes: Pradaxa, ASA-unknown what instructions given to patient Has a Security Compliance Engineer Yes: Visits 07/05/22 & scanned Security Compliance Engineer name [facility] Cardiac Testing No Hx Pacemaker/ICD Yes: Implanted 07/10/22 Pacemaker Rep Required? No: Pacemaker form scanned and in surgery folder for dos Gastrointestinal Symptoms Abdominal Pain,Bloating,Nausea Urinary Catheter Present No Hx Urinary Self Catheterization No Diabetes No Patient No Lactating No Presence of External or Internal Medical Yes: Bilat eye IOLs, Pacemaker Devices , lumbar rods Received a COVID vaccine? Yes Marital Status Lives With spouse Patient Discharge Plan Description Return Home Advance Directives? Yes: DEIRDRE
== END 2022-07-28 11:03 | disposition home or self-care (01) ==
LOC: OR 17:28 → AC 18:36
PROVIDERS: Surgery; PCP Nurse Practitioner; Referring Provider Surgery; Visit Provider Surgery
PROC: 0FT44ZZ Resection of Gallbladder, Percutaneous Endoscopic Approach (ICD-10-PCS; CPT 47562; principal; 2022-07-27 14:00)
DX: K80.10 Calculus of gallbladder with chronic cholecystitis without obstruction (principal)
CPT/HCPCS: 47562; 82962; J0690; J1100; J1885; J2060; J2405; J2704; J2765; J3010

== ENCOUNTER → 2022-11-19 13:29 | Outpatient (CLI) | payer OTHER, SELFPAY ==
[2022-11-19 14:35] LABS: Add Manual Diff / Slide Review NO; Basophils Absolute Auto 0 /uL (0-100); Basophils Percent Auto 0.6 % (0-2); Eosinophils Absolute Auto 100 /uL (0-450); Eosinophils Percent Auto 1.7 % (2-4); Hematocrit 36.8 % (36-46); Hemoglobin 11.8 g/dL (12.0-16.0); Lymphocytes Absolute Auto 1800 /uL (1100-4500); Lymphocytes Percent Auto 23.4 % (25-40); Mean Corpuscular HGB Conc 32.1 % (30-36); Mean Corpuscular Volume 84.1 fL (80-100); Monocytes Absolute Auto 800 /uL (0-900); Monocytes Percent Auto 10.1 % (3-14); Neutrophils Absolute Auto 4900 /uL (1500-7000); Neutrophils Percent Auto 64.2 % (50-75); Platelet Count 236 X10^3/uL (150-400); Red Blood Cell Count 4.38 X10^6/uL (4.0-5.2); Red Cell Distribution Width 18.7 % (11.6-14.8); White Blood Cell Count 7.6 X10^3/uL (4.5-11.0)
[2022-11-19 14:38] LABS: HEMOLYSIS < 15 (0-50); Iron 41 ug/dL (37-170)
[2022-11-19 14:49] LABS: Percent Iron Saturation 10 % (15-50); Total Iron Binding Capacity 405 ug/dL (265-497); Transferrin 282 mg/dL (206-381)
[2022-11-19 15:15] LABS: Ferritin 24 ng/mL (11-264)
== END ==
PROVIDERS: PCP Nurse Practitioner; Referring Provider Nurse Practitioner; Visit Provider Nurse Practitioner
DX: D50.9 Iron deficiency anemia, unspecified (principal)
CPT/HCPCS: 36415; 82728; 83540; 83550; 85025

== ENCOUNTER → 2022-11-20 10:28 | Outpatient (CLI) | payer OTHER, SELFPAY ==
[2022-11-22 14:32] LABS: C difficie Toxins A and B, EIA Negative (Negative)
== END ==
PROVIDERS: PCP Nurse Practitioner; Referring Provider Nurse Practitioner; Visit Provider Nurse Practitioner
DX: R19.7 Diarrhea, unspecified (principal); Z78.9 Other specified health status
CPT/HCPCS: 87045; 87046; 87177; 87324; 87899

== ENCOUNTER → 2022-11-29 11:44 | Outpatient (CLI) | payer OTHER, SELFPAY ==
--- NOTE | 2022-11-29 11:45 | DI.RAD.S_ITS ---
Bone Density Report Name: LEYDI HARRY Age: 77 Sex: Female Ethnicity: White Date of : 1945 Indication: postmenopausal; screening for osteoporosis; Referring Provider: SAMIRA COLORADO Study: Bone densitometry was performed. Exam Date: November 29, 2022 Accession number: [id number] Bone Density: Region BMD T-score Z-score Classification Femoral Neck (Left) 0.819 -0.3 1.8 Normal Total Hip (Left) 0.840 -0.8 1.0 Normal Femoral Neck (Right) 0.809 -0.4 1.7 Normal Total Hip (Right) 0.822 -1.0 0.8 Normal Total Hip Mean 0.831 -0.9 0.9 Normal Total Forearm (Left) 0.513 -1.2 1.2 Osteopenia 1/3 Forearm (Left) 0.627 -1.1 1.5 Osteopenia UD Forearm (Left) 0.358 -1.5 0.4 Osteopenia World Health Organization criteria for BMD impression classify patients as: Normal (T-score at or above -1.0), Osteopenia (T-score between -1.0 and -2.5), or Osteoporosis (T-score at or below -2.5). 10-year Fracture Risk: FRAX not reported because: All T-scores for Spine Total, Hip Total, Femoral Neck at or above -1.0 Previous Exams: -- Region Exam Age BMD T-score BMD Change BMD Change Date g/cm2 vs Baseline vs Previous -- Total Hip(Left) 11/29/2022 77 0.840 -0.8 -0.052 (-5.8%)# -0.052 (-5.8%)# 12/25/2018 73 0.892 -0.4 Total Hip(Right) 11/29/2022 77 0.822 -1.0 -0.031 (-3.7%)# -0.031 (-3.7%)# 12/25/2018 73 0.854 -0.7 -- *Denotes significance at 95% confidence level, LSC for Total Hip = 0.027 g/cm2 # Denotes dissimilar scan types or analysis methods Impression: The patient has normal bone mass. No significant bone loss was observed. Discussion: BONE DENSITY IS ABOVE THE MINIMUM DESIRABLE LEVEL AT ALL SKELETAL SITES TESTED. This patient's bone mineral density is above the minimum desirable level (T-score -1.0 or better) at all sites measured. The patient should follow a healthful lifestyle (good nutrition with adequate calcium and vitamin D, and appropriate weight-bearing exercise). Follow-Up: Consider repeating this study in 5 years or sooner if there is some new clinical indication. Reported by: VI SPEARS M.D. on 11/29/2022 12:06:00 PM.
== END ==
PROVIDERS: PCP Nurse Practitioner; Referring Provider Nurse Practitioner; Visit Provider Nurse Practitioner
DX: Z13.820 Encounter for screening for osteoporosis; Z78.0 Asymptomatic menopausal state
CPT/HCPCS: 77080

== ENCOUNTER → 2023-01-24 07:25 | Outpatient (CLI) | payer OTHER, SELFPAY ==
[2023-01-24 08:56] LABS: HEMOLYSIS < 15 (0-50); Iron 130 ug/dL (37-170)
[2023-01-24 09:07] LABS: Free T3, Triiodothyronine Free 3.06 pg/mL (2.77-5.27); Free T4, Direct Thyroxine 1.25 ng/dL (0.78-2.19); Percent Iron Saturation 35 % (15-50); Total Iron Binding Capacity 368 ug/dL (265-497); Transferrin 274 mg/dL (206-381)
[2023-01-24 09:09] LABS: Alanine Aminotransferase 25 IU/L (<35); Albumin Globulin Ratio 1.6 (1.0-2.8); Alkaline Phosphatase 52 U/L (38-126); Aspartate Aminotransferase 23 IU/L (14-36); BUN Creatinine Ratio 18.8 (6-22); Bilirubin Total 0.3 mg/dL (0.2-1.3); Blood Urea Nitrogen 15 mg/dL (7-17); Carbon Dioxide 29 mmol/L (22-32); Chloride 103 mmol/L (98-107); Cholesterol 154 mg/dL (140-199); Estimated Glomerular Filt Rate > 60 mL/min (>60); Globulin 2.5 g/dL (1.7-4.1); Glucose 96 mg/dL (80-110); HDL Cholesterol 53 mg/dL (40-60); HEMOLYSIS < 15 (0-50); LDL Cholesterol Calculated 88 mg/dL (<100); Potassium 4.5 mmol/L (3.4-5.1); Sodium 139 mmol/L (137-145); Total Protein 6.5 g/dL (6.3-8.2); Triglycerides 64 mg/dL (35-150)
[2023-01-24 09:20] LABS: Thyroid Stimulating Hormone 2.44 uIU/mL (0.47-4.68)
== END ==
PROVIDERS: PCP Nurse Practitioner; Referring Provider Nurse Practitioner; Visit Provider Nurse Practitioner
DX: E78.00 Pure hypercholesterolemia, unspecified (principal); F32.A Depression, unspecified; F41.9 Anxiety disorder, unspecified; G47.33 Obstructive sleep apnea (adult) (pediatric); I45.2 Bifascicular block; F51.01 Primary insomnia; I48.0 Paroxysmal atrial fibrillation; I48.92 Unspecified atrial flutter; K21.9 Gastro-esophageal reflux disease without esophagitis; D50.9 Iron deficiency anemia, unspecified; Z79.01 Long term (current) use of anticoagulants
CPT/HCPCS: 36415; 80053; 80061; 83540; 83550; 84439; 84443; 84481

== ENCOUNTER → 2023-04-17 15:59 | Outpatient (CLI) | payer OTHER, SELFPAY ==
[2023-04-17 17:18] LABS: Add Manual Diff / Slide Review NO; Basophils Absolute Auto 0 /uL (0-100); Basophils Percent Auto 0.6 % (0-2); Eosinophils Absolute Auto 100 /uL (0-450); Eosinophils Percent Auto 1.6 % (2-4); Hematocrit 37.7 % (36-46); Hemoglobin 12.3 g/dL (12.0-16.0); Lymphocytes Absolute Auto 2000 /uL (1100-4500); Lymphocytes Percent Auto 32.3 % (25-40); Mean Corpuscular HGB Conc 32.6 % (30-36); Mean Corpuscular Hemoglobin 28.7 PG (26-34); Mean Corpuscular Volume 87.8 fL (80-100); Monocytes Absolute Auto 500 /uL (0-900); Monocytes Percent Auto 8.7 % (3-14); Neutrophils Absolute Auto 3500 /uL (1500-7000); Neutrophils Percent Auto 56.8 % (50-75); Platelet Count 218 X10^3/uL (150-400); Red Blood Cell Count 4.29 X10^6/uL (4.0-5.2); Red Cell Distribution Width 14.9 % (11.6-14.8); White Blood Cell Count 6.1 X10^3/uL (4.5-11.0)
[2023-04-17 17:44] LABS: HEMOLYSIS < 15 (0-50); Iron 41 ug/dL (37-170)
[2023-04-17 17:47] LABS: Alanine Aminotransferase 22 IU/L (<35); Albumin 4.1 g/dL (3.5-5.0); Albumin Globulin Ratio 1.5 (1.0-2.8); Aspartate Aminotransferase 27 IU/L (14-36); BUN Creatinine Ratio 27.1 (6-22); Bilirubin Total 0.5 mg/dL (0.2-1.3); Blood Urea Nitrogen 19 mg/dL (7-17); Calcium 8.7 mg/dL (8.4-10.2); Carbon Dioxide 25 mmol/L (22-32); Chloride 103 mmol/L (98-107); Estimated Glomerular Filt Rate > 60 mL/min (>60); Globulin 2.7 g/dL (1.7-4.1); Glucose 89 mg/dL (80-110); Lipase 67 U/L (23-300); Sodium 137 mmol/L (137-145); Total Protein 6.8 g/dL (6.3-8.2)
[2023-04-17 17:53] LABS: HEMOLYSIS 86 (0-50)
[2023-04-17 17:54] LABS: Alkaline Phosphatase 40 U/L (38-126); Potassium 4.1 mmol/L (3.4-5.1)
[2023-04-17 17:57] LABS: Percent Iron Saturation 11 % (15-50); Total Iron Binding Capacity 378 ug/dL (265-497); Transferrin 280 mg/dL (206-381)
[2023-04-17 18:18] LABS: Ferritin 38 ng/mL (11-264)
== END ==
PROVIDERS: PCP Nurse Practitioner; Referring Provider Family Medicine; Visit Provider Family Medicine
DX: D50.9 Iron deficiency anemia, unspecified (principal); K92.1 Melena; R10.13 Epigastric pain
CPT/HCPCS: 80053; 82728; 83540; 83550; 83690; 85025

== ENCOUNTER → 2023-05-21 08:00 | Outpatient (CLI) | payer OTHER, SELFPAY ==
[2023-05-21 08:33] LABS: Estimated Glomerular Filt Rate > 60 mL/min (>60)
--- NOTE | 2023-05-21 09:52 | DI.CT.S_ITS ---
PROCEDURE: CT ABDOMEN PELVIS W CON INDICATIONS: Severe episodes of abd pain/vomiting TECHNIQUE: After the administration of oral and intravenous contrast, axial sections were acquired from the lung bases to the pubic symphysis. Coronal and sagittal reformats were performed. For radiation dose reduction, the following was used: automated exposure control, adjustment of mA and/or kV according to patient size. COMPARISON:[facility], CT, CT ABDOMEN PELVIS W CON, 05/11/2022, 15:09. FINDINGS: Image quality: Excellent. Lung bases: Small right Bochdalek hernia containing fat. Left basilar scarring is unchanged from prior. Heart: No significant findings. ABDOMEN: Liver: Unremarkable. Gallbladder: Absent. Biliary ducts: Unremarkable. Pancreas: Unremarkable. Spleen: Unremarkable. Adrenal Glands: Unremarkable. Kidneys and Ureters: Fluid attenuating renal cysts; no complex renal cysts which require follow-up. No hydronephrosis or nephrolithiasis. Stomach and Bowel: Colonic diverticulosis without evidence of diverticulitis. Peritoneum: No abnormal intraperitoneal fluid. No free air. Ventral Wall: Small umbilical hernia containing fat. Abdominal Nodes: No retroperitoneal or mesenteric adenopathy by size criteria. Vessels: Aorta and inferior vena cava are normal in size. Dilated left adnexal and gonadal vasculature. PELVIS: Pelvic Organs: Unremarkable. Bladder: Unremarkable. Pelvic Nodes: No enlarged lymph nodes. Miscellaneous: No inguinal hernias are seen. Bones: Unremarkable. IMPRESSION: Reflux or stasis of oral contrast within the esophagus, which may place this patient at risk for GERD. Cholecystectomy. Normal pancreas. Dilated left adnexal/gonadal vasculature, which can be painful in the setting of pelvic congestion syndrome. Dictated by: Zuhair Florentino M.D. on 05/21/2023 at 10:10 Approved by: Zuhair Florentino M.D. on 05/21/2023 at 10:23
== END ==
PROVIDERS: Radiology Diagnostic Radiology; PCP Nurse Practitioner; Referring Provider Family Medicine; Visit Provider Family Medicine
DX: R10.13 Epigastric pain (principal); K57.90 Diverticulosis of intestine, part unspecified, without perforation or abscess without bleeding; K42.9 Umbilical hernia without obstruction or gangrene; N28.1 Cyst of kidney, acquired; Z90.49 Acquired absence of other specified parts of digestive tract
CPT/HCPCS: 36415; 74177; 82565; Q9967

== ENCOUNTER → 2023-05-27 14:09 | Outpatient (CLI) | payer OTHER, SELFPAY ==
[2023-05-27 14:41] LABS: Add Manual Diff / Slide Review NO; Basophils Absolute Auto 100 /uL (0-100); Eosinophils Absolute Auto 200 /uL (0-450); Eosinophils Percent Auto 2.2 % (2-4); Hematocrit 38.3 % (36-46); Hemoglobin 12.8 g/dL (12.0-16.0); Lymphocytes Absolute Auto 1700 /uL (1100-4500); Lymphocytes Percent Auto 24.1 % (25-40); Mean Corpuscular HGB Conc 33.3 % (30-36); Mean Corpuscular Hemoglobin 29.1 PG (26-34); Mean Corpuscular Volume 87.4 fL (80-100); Monocytes Absolute Auto 500 /uL (0-900); Neutrophils Absolute Auto 4600 /uL (1500-7000); Neutrophils Percent Auto 65.7 % (50-75); Platelet Count 248 X10^3/uL (150-400); Red Blood Cell Count 4.38 X10^6/uL (4.0-5.2)
[2023-05-27 14:48] LABS: Iron 87 ug/dL (37-170)
[2023-05-27 14:49] LABS: HEMOLYSIS 51 (0-50)
[2023-05-27 14:59] LABS: Percent Iron Saturation 22 % (15-50); Total Iron Binding Capacity 392 ug/dL (265-497); Transferrin 287 mg/dL (206-381)
[2023-05-27 15:23] LABS: Ferritin 32 ng/mL (11-264)
== END ==
PROVIDERS: PCP Nurse Practitioner; Referring Provider Family Medicine; Visit Provider Family Medicine
DX: K21.9 Gastro-esophageal reflux disease without esophagitis (principal); D50.9 Iron deficiency anemia, unspecified
CPT/HCPCS: 36415; 82728; 83540; 83550; 85025

== ENCOUNTER 2023-06-18 07:33 | Day surgery (SDC) | payer OTHER, SELFPAY ==
--- NOTE | 2023-06-18 | PATH_ITS ---
[facility] Accession Number: [id number] No. of containers..01 Tissue . 01 Material submitted: . gastrointestinal site - GASTRIC BIOPSY . 01 Diagnosis: STOMACH, BIOPSY: - GASTRIC MUCOSA WITH MILD REACTIVE GASTRITIS, MOST CONSISTENT WITH IRON PILL GASTRITIS. - NO H. PYLORI LIKE ORGANISMS IDENTIFIED (BY THE H/E AND IMMUNOHISTOCHEMICAL STAINED SLIDE SECTIONS). - NO INTESTINAL METAPLASIA, DYSPLASIA OR MALIGNANCY IDENTIFIED. - SEE COMMENT: --- COMMENT: There are occasional brown pigmented material depositions identified within the gastric mucosa, a Prussian blue special stain confirmed that the brown pigmented material is iron deposits. H. pylori immunohistochemical stain is performed and is negative. --- TECHNICAL NOTE: THE IMMUNOHISTOCHEMICAL STAINS REPORTED WERE PERFORMED AT [facility] ([address], [facility] [address]). THEY WERE DEVELOPED AND THEIR PERFORMANCE CHARACTERISTICS DETERMINED BY [employer] THEY HAVE NOT BEEN CLEARED OR APPROVED BY THE [employer] [employer]OD AND DRUG [employer]RATION, ALTHOUGH SUCH APPROVAL IS NOT REQUIRED FOR ANALYTE-SPECIFIC REAGENTS OF THIS TYPE. TXN 06/25/2023 1611 Local . 01 Electronically signed: . Blair Ford MD, Pathologist NPI- [id number] . 01 Gross description: . GASTRIC BIOPSY: Received in formalin is 2 fragment(s) of hunter, soft tissue measuring 0.3 x 0.3 x 0.2 cm to 0.3 x 0.2 x 0.1 cm submitted entirely in 1 cassette(s) /AAY 06/20/2023 0053 Local . 01 Pathologist provided ICD-10: K29.70 . 01 CPT . 204530, E38823, 371924 Specimen Comment: A courtesy copy of this report has been sent to [phone] Performed at: 01 [facility] [address] [facility] [place][note 2], [place], [place] [id number] MD Solomon Fraga MD Phone: [phone]
[2023-06-18 08:04] VITALS: BMI 20.5
--- NOTE | 2023-06-18 08:12 | PM.HP.1 ---
History of Present Illness History of Present Illness Date Patient Seen: 06/18/23 Time Patient Seen: 08:12 Chief complaint: [facility] Narrative: 77-year-old with history atrial fibrillation on chronic anticoagulation here for diagnostic esophagoduodenoscopy for abdominal pain. EGD April 2022 demonstrated erosive gastropathy. She describes severe epigastric pain lasting for 6-7 hours and relieved with vomiting this has happened 3 times over the past 2 months. She had a recent CT abdomen pelvis which was largely unremarkable. [facility] Medical History 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) Gallstone Profound anemia Positive FIT (fecal immunochemical test) GIB (gastrointestinal bleeding) Diverticulosis Atrial flutter Current use of retirement anticoagulation Subdural hematoma Hyperlipidemia GERD (gastroesophageal reflux disease) Rosacea Heart palpitations (2005) Scoliosis (1961) Obstructive sleep apnea of adult Primary insomnia Snoring (~1995) Surgical History H/O craniotomy History of right cataract surgery (10/29/12) History of left cataract surgery (11/12/12) History of spinal surgery (1961) Family History Father Heart disease Mother Pneumonia Brother No problems noted. Sister No problems noted. Family/Other No problems noted. Family/Other No problems noted. Social History marital status: household members: spouse lives independently: Yes occupational status: previously employed Smoking Status: Never smoker alcohol intake: current substance use type: marijuana Meds Home Medications and Allergies Home Medications Medication Instructions Recorded Confirmed Type Resmed Aircurve 10 BIPAP #1 ea 03/13/22 04/17/23 History atorvastatin 20 mg tablet See Rx Instructions .Route 07/26/22 06/18/23 Rx .COMPLEX #90 tabs acetaminophen 325 mg capsule 650 mg (2 x 325 mg) PO QID PRN 07/27/22 06/18/23 Rx (Tylenol) pain #60 caps metoprolol succinate 50 mg 50 mg PO BID 10/31/22 04/17/23 History tablet,extended release 24 hr iron glycinate See Rx Instructions .Route .COMPLEX 01/24/23 06/18/23 History amiodarone 100 mg tablet 50 mg PO DAILY 04/17/23 06/18/23 History amitriptyline 25 mg tablet 25 mg PO ONCE PM 04/17/23 06/18/23 History dabigatran etexilate 150 mg 150 mg PO BID 04/17/23 06/18/23 History capsule (Pradaxa) Allergies Allergy/AdvReac Type Severity Reaction Status Date / Time No Known Drug Allergies Allergy Verified 06/18/23 07:56 Exam Narrative Exam Narrative: General adult woman alert oriented no acute distress Chest nonlabored respiration Extremities warm well perfused Assessment & Plan Assessment and plan (1) Epigastric pain: Status: Acute Assessment & Plan narrative: 77-year-old woman history of gastritis and chronic anticoagulation with unexplained epigastric pain here for diagnostic esophagoduodenoscopy. Overview of the procedure was discussed. Procedural risks including hemorrhage, intestinal injury were discussed. Questions answered she is agreement with this plan. She provides her written and verbal consent to proceed.
[2023-06-18 08:16] VITALS: BP 133/77; PULSE 63; RESP 17; TEMP 36.2; O2SAT 99
[2023-06-18] MEDS: LACTATED RINGERS 1,000 ML 42 ML IV (08:25)
--- NOTE | 2023-06-18 08:54 | P.OP.EGD_ITS ---
Operative Date/Time/Diagnoses Date of procedure: 06/18/23 Time of procedure: 08:54 Pre-op diagnosis: Epigastric pain Post-op diagnosis: other (Gastritis) Procedure & Clinicians Study performed: Esophagoduodenoscopy Same procedure as scheduled: Yes Indications: Epigastric pain, history of anemia Surgeon: Calos Brand Procedure Notes Procedure in detail: The history and physical was performed/updated and the patient is ASA class is 2. The procedure was discussed in detail with the patient. Potential risks complications including infection, bleeding, missed diagnosis, perforation, need for surgery, and were explained. Their questions were answered and informed consent was obtained. Patient placed in left lateral decubitus position. Time out was performed. Procedural sedation was administered by Anesthesia. A bite block was placed. the scope was inserted into the mouth and advanced through the esophagus and into the stomach. The pylorus was intubated and the duodenum was examined to the 2nd portion. The scope was then withdrawn into the stomach and retroflexed. The stomach was decompressed and the scope was withdrawn slowly through the esophagus. FINDINGS * Erosive gastritis-biopsied with forceps * Hiatal hernia * No esophagitis The patient tolerated the procedure well and will be discharged when they meet criteria. Findings: gastritis Specimen(s): other (Gastric) Impression: Erosive gastropathy Post-procedure Plan for aftercare: Start omeprazole 20 mg twice daily for 1 month Disposition: same day surgery
[2023-06-18 09:19] VITALS: BP 103/76; PULSE 60; RESP 17; TEMP 36.6; O2SAT 96
[2023-06-18 09:20] VITALS: BP 101/61; PULSE 60; RESP 16; O2SAT 96
[2023-06-18 09:25] VITALS: BP 108/68; PULSE 60; RESP 16; O2SAT 98
[2023-06-18 09:34] VITALS: BP 109/72; PULSE 59; RESP 16; TEMP 36.2; O2SAT 98
== END 2023-06-18 10:00 | disposition home or self-care (01) ==
PROVIDERS: PCP Nurse Practitioner; Referring Provider Surgery; Visit Provider Surgery
PROC: 0DJ08ZZ Inspection of Upper Intestinal Tract, Via Natural or Artificial Opening Endoscopic (ICD-10-PCS; CPT 43235; principal; 2023-06-18 08:45)
DX: K29.70 Gastritis, unspecified, without bleeding (principal); K44.9 Diaphragmatic hernia without obstruction or gangrene
CPT/HCPCS: 43239; J2704

== ENCOUNTER → 2023-07-19 09:50 | Outpatient (CLI) | payer OTHER, SELFPAY ==
[2023-07-19 11:31] LABS: Alanine Aminotransferase 26 IU/L (<35); Albumin 4.4 g/dL (3.5-5.0); Albumin Globulin Ratio 1.4 (1.0-2.8); Alkaline Phosphatase 58 U/L (38-126); Aspartate Aminotransferase 25 IU/L (14-36); BUN Creatinine Ratio 23.2 (6-22); Bilirubin Total 0.5 mg/dL (0.2-1.3); Blood Urea Nitrogen 16 mg/dL (7-17); Calcium 9.7 mg/dL (8.4-10.2); Carbon Dioxide 31 mmol/L (22-32); Chloride 100 mmol/L (98-107); Cholesterol 183 mg/dL (140-199); Estimated Glomerular Filt Rate > 60 mL/min (>60); Globulin 3.1 g/dL (1.7-4.1); Glucose 91 mg/dL (80-110); HDL Cholesterol 49 mg/dL (40-60); HEMOLYSIS 19 (0-50); LDL Cholesterol Calculated 106 mg/dL (<100); Sodium 138 mmol/L (137-145); Total Protein 7.5 g/dL (6.3-8.2); Triglycerides 138 mg/dL (35-150)
[2023-07-19 11:41] LABS: HEMOLYSIS 23 (0-50); Total Iron Binding Capacity 340 ug/dL (265-497); Transferrin 286 mg/dL (206-381)
[2023-07-19 11:57] LABS: Free T3, Triiodothyronine Free 2.87 pg/mL (2.77-5.27); Free T4, Direct Thyroxine 1.11 ng/dL (0.78-2.19)
[2023-07-19 12:05] LABS: Ferritin 27 ng/mL (11-264)
[2023-07-19 12:10] LABS: Thyroid Stimulating Hormone 1.53 uIU/mL (0.47-4.68)
[2023-07-19 18:41] LABS: Iron 81 ug/dL (37-170); Percent Iron Saturation 24 % (15-50)
== END ==
PROVIDERS: PCP Nurse Practitioner; Referring Provider Family Medicine; Visit Provider Family Medicine
DX: E78.00 Pure hypercholesterolemia, unspecified (principal); I48.0 Paroxysmal atrial fibrillation; F32.9 Major depressive disorder, single episode, unspecified; F41.9 Anxiety disorder, unspecified; D50.9 Iron deficiency anemia, unspecified; Z79.01 Long term (current) use of anticoagulants; F51.01 Primary insomnia; Z79.899 Other long term (current) drug therapy
CPT/HCPCS: 36415; 80053; 80061; 82728; 83540; 83550; 84439; 84443; 84481

== ENCOUNTER → 2023-11-05 09:03 | Outpatient (CLI) | payer OTHER, SELFPAY ==
[2023-11-05 10:08] LABS: Add Manual Diff / Slide Review NO; Basophils Absolute Auto 100 /uL (0-100); Basophils Percent Auto 0.8 % (0-2); Eosinophils Absolute Auto 200 /uL (0-450); Eosinophils Percent Auto 2.4 % (2-4); Hematocrit 37.3 % (36-46); Hemoglobin 12.2 g/dL (12.0-16.0); Lymphocytes Absolute Auto 1600 /uL (1100-4500); Lymphocytes Percent Auto 20.9 % (25-40); Mean Corpuscular HGB Conc 32.6 % (30-36); Mean Corpuscular Hemoglobin 28.4 PG (26-34); Mean Corpuscular Volume 87.3 fL (80-100); Monocytes Absolute Auto 700 /uL (0-900); Monocytes Percent Auto 8.8 % (3-14); Neutrophils Absolute Auto 5300 /uL (1500-7000); Neutrophils Percent Auto 67.1 % (50-75); Platelet Count 299 X10^3/uL (150-400); Red Blood Cell Count 4.27 X10^6/uL (4.0-5.2); White Blood Cell Count 7.8 X10^3/uL (4.5-11.0)
[2023-11-05 10:41] LABS: HEMOLYSIS < 15 (0-50); Iron 49 ug/dL (37-170)
[2023-11-05 10:49] LABS: Alanine Aminotransferase 18 IU/L (<35); Albumin 3.9 g/dL (3.5-5.0); Albumin Globulin Ratio 1.4 (1.0-2.8); Alkaline Phosphatase 63 U/L (38-126); Aspartate Aminotransferase 19 IU/L (14-36); BUN Creatinine Ratio 28.1 (6-22); Bilirubin Total 0.4 mg/dL (0.2-1.3); Blood Urea Nitrogen 18 mg/dL (7-17); Calcium 9.2 mg/dL (8.4-10.2); Carbon Dioxide 31 mmol/L (22-32); Chloride 100 mmol/L (98-107); Cholesterol 137 mg/dL (140-199); Estimated Glomerular Filt Rate > 60 mL/min (>60); Globulin 2.8 g/dL (1.7-4.1); Glucose 94 mg/dL (80-110); HDL Cholesterol 47 mg/dL (40-60); HEMOLYSIS < 15 (0-50); LDL Cholesterol Calculated 66 mg/dL (<100); Potassium 3.8 mmol/L (3.4-5.1); Sodium 137 mmol/L (137-145); Total Protein 6.7 g/dL (6.3-8.2); Triglycerides 119 mg/dL (35-150)
[2023-11-05 10:52] LABS: Percent Iron Saturation 15 % (15-50); Total Iron Binding Capacity 334 ug/dL (265-497); Transferrin 274 mg/dL (206-381)
[2023-11-05 10:56] LABS: Microalbumi Creatinin Ratio Ur 17.2 ug/mg CR (<30)
== END ==
PROVIDERS: PCP Nurse Practitioner; Referring Provider Nurse Practitioner; Visit Provider Nurse Practitioner
DX: E78.00 Pure hypercholesterolemia, unspecified (principal); I48.0 Paroxysmal atrial fibrillation; D50.9 Iron deficiency anemia, unspecified; K92.2 Gastrointestinal hemorrhage, unspecified; Z79.01 Long term (current) use of anticoagulants; F51.01 Primary insomnia; F32.9 Major depressive disorder, single episode, unspecified; F41.9 Anxiety disorder, unspecified; Z79.899 Other long term (current) drug therapy
CPT/HCPCS: 36415; 80053; 80061; 82043; 82570; 83540; 83550; 85025

== ENCOUNTER → 2023-11-22 09:44 | Outpatient (CLI) | payer OTHER, SELFPAY ==
[2023-11-22 10:18] LABS: Appearance Urine UA CLEAR; Bilirubin Urine UA NEGATIVE (NEGATIVE); Color Urine UA YELLOW; Glucose Urine UA NEGATIVE (Negative); Ketones Urine UA NEGATIVE (NEGATIVE); Leukocyte Esterase Urine UA NEGATIVE (NEGATIVE); Nitrite Urine UA NEGATIVE (Negative); Occult Blood Urine UA NEGATIVE (Negative); Protein Urine UA NEGATIVE (Negative); Specific Gravity Urine UA <=1.005 (1.000-1.035); Urobilinogen Urine UA 0.2 E.U./dL (0.2); pH Urine UA 5.5 (4.5-8.0)
[2023-11-22 10:19] LABS: Urine Volume 10mL (spun)
[2023-11-22 10:27] LABS: Bacteria Urine None Seen; Culture Indicated Urine Cult Not Indicated; RBC Urine None Seen (0-5/HPF); Squamous Epithelial Cell Urine None Seen (0-5/HPF); WBC Urine None Seen (0-5/HPF)
== END ==
PROVIDERS: PCP Nurse Practitioner; Referring Provider Nurse Practitioner; Visit Provider Nurse Practitioner
DX: R30.0 Dysuria (principal); K64.8 Other hemorrhoids
CPT/HCPCS: 81001; 99214

== ENCOUNTER → 2023-12-23 13:49 | Outpatient (CLI) | payer OTHER, SELFPAY ==
--- NOTE | 2023-12-23 13:50 | DI.RAD.S_ITS ---
PROCEDURE: FL BARIUM SWALLOW INDICATIONS: Gastro-esophageal reflux disease without esophagit COMPARISON: [facility], , BARIUM SWALLOW, 10/02/2013, 8:45. FINDINGS: Function: No aspiration with liquid barium. There is weakened esophageal peristalsis, resulting in tertiary contractions. No elicited gastroesophageal reflux. Morphology: Single contrast views show no esophageal strictures, extrinsic mass effects, or diverticula. Limited images of the stomach demonstrate normal appearance. IMPRESSION: Severe esophageal dysmotility. Dictated by: Zuhair Florentino M.D. on 12/23/2023 at 15:01 Approved by: Zuhair Florentino M.D. on 12/23/2023 at 15:02
== END ==
LOC: RAD 13:49
PROVIDERS: PCP Nurse Practitioner; Referring Provider Internal Medicine Gastroenterology; Visit Provider Internal Medicine Gastroenterology
DX: K21.9 Gastro-esophageal reflux disease without esophagitis (principal); K22.4 Dyskinesia of esophagus
CPT/HCPCS: 74220

== ENCOUNTER → 2024-02-10 11:42 | Outpatient (CLI) | payer OTHER, SELFPAY ==
--- NOTE | 2024-02-10 11:44 | DI.US.S_ITS ---
PROCEDURE: US EXTREMITY NONVASC LOWER RT INDICATIONS: right buttock swelling TECHNIQUE: Real-time scanning was performed of the right buttock , with image documentation. COMPARISON: None. FINDINGS: Targeted ultrasound of the right buttock demonstrates no sonographic abnormality. IMPRESSION: No sonographic abnormality. No abscess. Dictated by: Zuhair Florentino M.D. on 02/10/2024 at 13:09 Approved by: Zuhair Florentino M.D. on 02/10/2024 at 13:10
[2024-02-10 13:02] LABS: Add Manual Diff / Slide Review NO; Basophils Absolute Auto 100 /uL (0-100); Basophils Percent Auto 0.8 % (0-2); Eosinophils Absolute Auto 200 /uL (0-450); Eosinophils Percent Auto 1.9 % (2-4); Hematocrit 34.3 % (36-46); Hemoglobin 11.1 g/dL (12.0-16.0); Lymphocytes Absolute Auto 1600 /uL (1100-4500); Lymphocytes Percent Auto 16.1 % (25-40); Mean Corpuscular HGB Conc 32.4 % (30-36); Mean Corpuscular Hemoglobin 27.6 PG (26-34); Mean Corpuscular Volume 85.3 fL (80-100); Monocytes Absolute Auto 1100 /uL (0-900); Neutrophils Absolute Auto 7100 /uL (1500-7000); Neutrophils Percent Auto 70.2 % (50-75); Platelet Count 407 X10^3/uL (150-400); Red Blood Cell Count 4.03 X10^6/uL (4.0-5.2); Red Cell Distribution Width 15.1 % (11.6-14.8); White Blood Cell Count 10.1 X10^3/uL (4.5-11.0)
[2024-02-10 13:40] LABS: Alanine Aminotransferase 22 IU/L (<35); Albumin 3.8 g/dL (3.5-5.0); Albumin Globulin Ratio 1.3 (1.0-2.8); Alkaline Phosphatase 82 U/L (38-126); Aspartate Aminotransferase 29 IU/L (14-36); BUN Creatinine Ratio 23.9 (6-22); Bilirubin Total 0.4 mg/dL (0.2-1.3); Blood Urea Nitrogen 43 mg/dL (7-17); Carbon Dioxide 30 mmol/L (22-32); Chloride 98 mmol/L (98-107); Estimated Glomerular Filt Rate 29 mL/min (>60); Glucose 114 mg/dL (80-110); Potassium 3.6 mmol/L (3.4-5.1); Sodium 133 mmol/L (137-145); Total Protein 6.8 g/dL (6.3-8.2)
[2024-02-10 13:47] LABS: HEMOLYSIS 28 (0-50)
[2024-02-10 14:00] LABS: Calcium 15.6 mg/dL (8.4-10.2)
== END ==
PROVIDERS: PCP Nurse Practitioner; Referring Provider Nurse Practitioner Family; Visit Provider Nurse Practitioner Family
DX: R22.2 Localized swelling, mass and lump, trunk (principal)
CPT/HCPCS: 36415; 76882; 80053; 85025

== ENCOUNTER 2024-02-10 14:58 | Inpatient (IN) | payer OTHER, SELFPAY ==
[2024-02-10] VITALS (14 sets, daily range): BP systolic 110–167; BP diastolic 55–73; PULSE 60–80; RESP 18–24; TEMP 36.9; O2SAT 92–100; BMI 20.5
--- NOTE | 2024-02-10 15:32 | EKG_ITS ---
[facility] [address] [address] [place] [address] Test Date: 2024-02-10 Pat Name: Brenda Bynum Department: Room: Gender: Female Dialer: JOANNA : 1945 Requested By: Order Number: [id number] Reading MD: Sebastián Bradshaw Measurements Intervals [place] Rate: 76 P: 70 [place]: 182 QRS: 231 QRSD: 106 T: 44 QT: 412 QTc: 463 Interpretive Statements Normal sinus rhythm Right superior axis deviation Incomplete right bundle branch block Right ventricular hypertrophy Electronically Signed On 02-10-2024 16:37:48 PDT by Sebastián Bradshaw
[2024-02-10] MEDS: SODIUM CHLORIDE 0.9% 1,000 ML 1000 ML IV ×2 (18:30→21:24)
--- NOTE | 2024-02-10 18:36 | ED.RECABL ---
HPI - Recheck/Abnormal Lab/Rx General Chief Complaint: Recheck/Abnormal Lab/Rx Stated Complaint: sent by [facility], abnormal labs, ekg Time Seen by Provider: 02/10/24 16:38 Source: patient Mode of arrival: Wheelchair History of Present Illness HPI narrative: 78-year-old female presents for abnormal labs. Patient states over the last 5-6 weeks she has had progressive right buttock pain and swelling. She was seen her primary care doctor but no cause has been found. She states that she went to the walk-in clinic today due to her persistent pain were labs were performed and an ultrasound was obtained, which did not show any acute findings. Patient received a call later this afternoon stating that her labs were abnormal and she needed to come to the emergency department for treatment. states that patient has been somewhat fatigued and run down since symptoms started. Related Data Home Medications Medication Instructions Recorded Confirmed Resmed Aircurve 10 BIPAP #1 ea 03/13/22 02/11/24 metoprolol succinate 50 mg 50 mg PO BID 10/31/22 02/11/24 tablet,extended release 24 hr iron glycinate See Rx Instructions .Route .COMPLEX 01/24/23 02/11/24 amiodarone 100 mg tablet 50 mg PO DAILY 04/17/23 02/11/24 ascorbate calcium (vitamin C) 500 500 mg PO DAILY 06/27/23 02/11/24 mg tablet cholecalciferol (vitamin D3) 50 50 mcg PO BID 06/27/23 02/11/24 mcg (2,000 unit) capsule polyethylene glycol 3350 17 17 g PO DAILY 11/05/23 02/11/24 gram/dose oral powder (Miralax) amitriptyline 10 mg tablet 10 mg PO USEASDIRECTD 02/11/24 02/11/24 dabigatran etexilate 150 mg 150 mg PO BID 02/11/24 02/11/24 capsule (Pradaxa) Previous Rx's Medication Instructions Recorded acetaminophen 325 mg capsule 650 mg (2 x 325 mg) PO QID PRN 07/27/22 (Tylenol) pain #60 caps omeprazole 20 mg capsule,delayed 20 mg PO BID #180 caps 07/25/23 release atorvastatin 40 mg tablet 40 mg PO QPM #90 tabs 11/06/23 docusate sodium 100 mg capsule 300 mg (3 x 100 mg) PO DAILY #270 11/11/23 caps estradiol 10 mcg vaginal tablet 10 mcg vaginal DAILY 2 weeks #48 11/11/23 tabs Allergies Allergy/AdvReac Type Severity Reaction Status Date / Time No Known Drug Allergies Allergy Verified 02/10/24 15:10 Patient History Medical History Rectal prolapse Pelvic congestion syndrome Hiatal hernia 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) Gallstone Profound anemia Positive FIT (fecal immunochemical test) GIB (gastrointestinal bleeding) Diverticulosis Atrial flutter 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 Sister No problems noted. Family/Other No problems noted. Family/Other No problems noted. Social History marital status: household members: spouse lives independently: Yes occupational status: previously employed Smoking Status: Never smoker alcohol intake: current substance use type: marijuana Smoking Status: Never smoker alcohol intake frequency: a few times a week Substance Use Type: marijuana Exam Initial Vital Signs Initial Vital Signs: Vital Signs Temperature 98.4 F 02/10/24 15:02 Pulse Rate 76 02/10/24 15:02 Respiratory Rate 18 02/10/24 15:02 Blood Pressure 131/61 02/10/24 15:02 Pulse Oximetry 97 02/10/24 15:02 Oxygen Delivery Method Room Air 02/10/24 15:02 Const: Awake, alert, uncomfortable, in pain, lying on her left-hand side and position of comfort Cardiac: regular rate, regular rhythm RESP: unlabored, clear bilaterally, no wheezing MSK pelvis: Nonfluctuant swelling R hip that is tender to palpation Skin: Warm, Dry, intact, no rashes Neuro: AO x3, CN II-XII grossly intact, moves all extremities Course Orders Ordered: ED Orders 02/10/24 23:04 Calcium Stat Hydromorphone HCl (Hydromorphone 0.5 Mg Inj) 0.5 mg IV Q2H PRN PRN Reason: Pain, Severe (7-10) Last Admin: 02/11/24 02:20 Dose: 0.5 mg Documented By: ADIN Sodium Chloride (Normal Saline 0.9%) 1,000 mls @ 150 mls/hr IV CONT LAVELLE Last Admin: 02/11/24 02:26 Dose: 150 mls/hr Documented By: ADIN Naloxone HCl (Naloxone 0.4 Mg/Ml Vial) 0.2 mg IV Q2MIN PRN PRN Reason: Opiate Reversal Ondansetron HCl (Ondansetron 4 Mg/2 Ml Inj) 4 mg IV Q6HR PRN PRN Reason: Nausea And Vomiting Last Admin: 02/11/24 02:19 Dose: 4 mg Documented By: ADIN Discontinued Medications Calcitonin Pima (Calcitonin,Pima 400 Units/2 Ml Mdv) 300 units IM NOW ONE Stop: 02/10/24 22:55 Last Admin: 02/10/24 23:45 Dose: 300 units Documented By: WAN Hydromorphone HCl (Hydromorphone 1 Mg Inj) 1 mg IV NOW ONE Stop: 02/10/24 19:27 Last Admin: 02/10/24 19:34 Dose: 1 mg Documented By: WAN Sodium Chloride (Normal Saline 0.9%) 1,000 mls @ 1,000 mls/hr IV BOLUS ONE Stop: 02/10/24 17:38 Last Infusion: 02/10/24 19:45 Dose: Infused Documented By: Admin: 02/10/24 18:30 Dose: 1,000 mls/hr Documented By: CASH Sodium Chloride (Normal Saline 0.9%) 1,000 mls @ 1,000 mls/hr IV BOLUS ONE Stop: 02/10/24 22:18 Last Infusion: 02/10/24 23:52 Dose: Infused Documented By: Admin: 02/10/24 21:24 Dose: 1,000 mls/hr Documented By: WAN Zoledronic Acid 4 mg/ Sodium (Chloride) 105 mls @ 315 mls/hr IV NOW ONE Stop: 02/10/24 23:04 Last Admin: 02/10/24 23:52 Dose: 315 mls/hr Documented By: WAN Sodium Chloride (Normal Saline 0.9%) 1,000 mls @ 1,000 mls/hr IV BOLUS ONE Stop: 02/11/24 00:27 Last Admin: 02/11/24 00:37 Dose: 1,000 mls/hr Documented By: ADIN Ibuprofen (Ibuprofen 600 Mg Tablet) 600 mg PO Q6H PRN PRN Reason: Fever/Mild Pain (1-3) Morphine Sulfate (Morphine 4 Mg/Ml Inj) 4 mg IV NOW ONE Stop: 02/10/24 18:54 Last Admin: 02/10/24 19:02 Dose: 4 mg Documented By: CASH Ondansetron HCl (Ondansetron 4 Mg/2 Ml Inj) 4 mg IV NOW ONE Stop: 02/10/24 20:08 Last Admin: 02/10/24 20:11 Dose: 4 mg Documented By: WAN Vital Signs Vital signs: Vital Signs - 8 hr 02/10/24 20:30 02/10/24 20:30 02/10/24 21:00 Pulse Rate 65 60 Respiratory Rate 20 21 Blood Pressure 118/58 L Pulse Oximetry 98 98 Oxygen Delivery Method Nasal Cannula Nasal Cannula Oxygen Flow Rate 2 2 02/10/24 21:00 02/10/24 21:30 02/10/24 21:30 Pulse Rate 60 Respiratory Rate 20 Blood Pressure 121/56 L 120/56 L Pulse Oximetry 99 Oxygen Delivery Method Nasal Cannula Oxygen Flow Rate 2 02/10/24 22:00 02/10/24 22:00 02/10/24 22:30 Pulse Rate 60 60 Respiratory Rate 21 18 Blood Pressure 131/58 L Pulse Oximetry 100 100 Oxygen Delivery Method Nasal Cannula Room Air Oxygen Flow Rate 2 02/10/24 22:30 02/10/24 23:00 02/10/24 23:00 Pulse Rate 60 Respiratory Rate 20 Blood Pressure 114/57 L 116/59 L Pulse Oximetry 99 Oxygen Delivery Method Room Air Oxygen Flow Rate MDM - Recheck/Abnormal Lab/Rx Imaging Data CT scan - abdomen/pelvis: Radiologist's Impression: PROCEDURE: CT PEL WO CON INDICATIONS: R BUTTOCK PAIN/SWELLING, HYPERCALCEMIA TECHNIQUE: Noncontrast 3 mm axial sections acquired through the bony pelvis, with coronal and sagittal reformatting. COMPARISON: [facility], CT, CT ABDOMEN PELVIS W CON, 05/21/2023, 9:35. FINDINGS: Image quality: Excellent. Bones: There is a destructive lytic appearance of the posterior right iliac bone extending into the sacrum with large soft tissue component measuring 7.0 x 5 point 9 by 9.5 cm seen on series 2, image 24. Soft tissues: Colonic diverticula are present without associated inflammatory change. IMPRESSION: Significantly destructive osseous lesion with large soft tissue component within the posterior right iliac bone extending to significant portions of the sacrum. Overall finding is highly suspicious for malignancy. Dictated by: Elizabeth Sherman M.D. on 02/10/2024 at 19:44 Approved by: Elizabeth Sherman M.D. on 02/10/2024 at 19:46 MDM Narrative Medical decision making narrative: Patient presenting for progressive worsening right hip pain and swelling as well as incidentally found abnormal labs taken earlier today at the walk-in clinic. reports fatigue and mild brain fog with confusion, but patient has no tetany, no psychosis, or other severe signs of hypercalcemia. With the hip pain and abnormal labs I am concerned that there may be an underlying malignancy contributing to patient's symptoms and a CT pelvis ordered for assessment. Unable to obtain CT with contrast due to decrease in GFR. CT pelvis is concerning for destructive osseous lesion, large soft tissue component in the posterior right iliac bone extending to significant portions of the sacrum. Discussed with on-call orthopedic surgeon Dr. Lara, who recommended attempting transfer to a center with orthopedic oncology and ortho spine oncology as lesions such as these are highly morbid and usually require interdisciplinary teams to successfully manage. If unable to transfer patient then he is happy to see as consult. 2034 -discussed case with on-call orthopedics at [facility] Dr. See, who stated that there was no utility in transferring patient for workup at this time, but would make an urgent referral to the sarcoma clinic for follow up. Discussed case with Dr. Melgoza of telemedicine, who requested a consult with Nephrology to see if patient would need to be transferred. If nephrology stated no transfer needed then he would admit the patient for treatment. Discussed case with Dr. Schaffer of nephrology. Informed nephrology of creatinine results, calcium results, and likely that this is hypercalcemia of malignancy due to destructive osseous lesion in the pelvis. Patient was still making urine and has urinated several times since she has been in the emergency department. Nephrology recommends continued IV fluids, calcitonin, zolendronate IV, however patient does not need to be transferred emergently to a different facility for nephrology consult. Patient to be admitted for hypercalcemia. Patient given total of 3 L IV fluids, IM calcitonin, IVs zolendronate prior to going upstairs to the emergency department. 0400 -received a text from Dr Lara -after reviewing CT imaging suspect that osseous lesion is a met of some sort. Recommended CT surveillance to see if there is a primary lesion. CT of chest and abdomen ordered, she has already received a scan of her pelvis. Critical Care Time Critical Care Time Critical Care Time: Yes Total Critical Care Time: 49 Attestation: Hypercalcemia requiring correction with IV medications, I am calcitonin, IV bisphosphonates, nephrology consult, ortho consult Discharge Plan Departure Patient Disposition: Admitted As Inpatient Clinical Impression: Hypercalcemia, JAZ (acute kidney injury), Cancer of pelvic bone Admit Date/Time: 02/10/24 23:19 Admit Provider: Jeff Melgoza
[2024-02-10] MEDS: MORPHINE 4 MG/ML INJ IV (19:02)
[2024-02-10] MEDS: HYDROMORPHONE 1 MG INJ IV (19:34)
[2024-02-10] MEDS: ONDANSETRON 4 MG/2 ML INJ IV (20:11)
[2024-02-10] MEDS: CALCITONIN,SALMON 400 UNITS/2 ML MDV 300 UNITS IM (23:45)
[2024-02-10] MEDS: ZOLEDRONIC ACID 4 MG in SODIUM CHLORIDE 0.9% 100 ML 315 MG IV (23:52)
[2024-02-11] VITALS (12 sets, daily range): BP systolic 116–176; BP diastolic 49–81; PULSE 68–116; RESP 15–19; TEMP 36.4–37.2; O2SAT 95–100; BMI 20.5
[2024-02-11] MEDS: SODIUM CHLORIDE 0.9% 1,000 ML 1000 ML IV (00:37)
[2024-02-11 01:13] LABS: Calcium 13.6 mg/dL (8.4-10.2)
[2024-02-11] MEDS: ONDANSETRON 4 MG/2 ML INJ IV ×2 (02:19→08:26)
[2024-02-11] MEDS: HYDROMORPHONE 0.5 MG INJ IV ×4 (02:20→21:23)
[2024-02-11] MEDS: SODIUM CHLORIDE 0.9% 1,000 ML 150 ML IV (02:26)
--- NOTE | 2024-02-11 03:06 | PC.NURSE ---
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 Patient is AxOx4, VSS, reports pain in right buttock/hip. Patient is nauseous and vomiting, unable to tolerate PO intake currently. Ambulatory with 1PA, although is fatigued. Patient has tremors and is visibly shaking at rest, stated that she has been experiencing this for about a month. Notified MD Melgoza of findings as well as critical lab value (Calcium 13.6 - trending down). IVF infusing and pain/nausea medications given as ordered. Purewick placed per patient comfort. Patient brought home bipap machine although unable to tolerate currently d/t nausea/vomiting, placed patient on 2L NC while asleep, cont p/ox & tele in place. Oriented to room & call-light, plan of care ongoing.
--- NOTE | 2024-02-11 04:07 | DI.CT.S_ITS ---
PROCEDURE: CT CHEST ABDOMEN WO CON INDICATIONS: PELVIC OSSEOUS MASS, TUMOR EVAL TECHNIQUE: After the administration of oral contrast, 5 mm thick sections acquired from the pulmonary apices to the iliac crests. 5 mm thick coronal and sagittal reformats acquired, with additional 7 mm coronal MIP reformats through the lungs. For radiation dose reduction, the following was used: automated exposure control, adjustment of mA and/or kV according to patient size. COMPARISON: [facility], CT, CT ABDOMEN PELVIS W CON, 05/11/2022, 15:09. [facility], CT, CT ABDOMEN PELVIS W CON, 05/21/2023, 9:35. [facility], CT, CT PEL WO CON, 02/10/2024, 18:52. FINDINGS: Image quality: Suboptimal due to motion artifact. CHEST: Lower Neck: No enlarged lymph nodes. Thyroid: No thyroid nodules which require sonographic follow up, per consensus guidelines. Axillae: No enlarged lymph nodes. Chest Wall: Left chest wall generator. Bones: Unremarkable. Lungs and Pleura: No pneumothorax or pleural effusions. Peripheral reticulation of the lung bases, with bronchiolectasis. No honeycombing. Heart: Heart size is enlarged. No pericardial effusion. Moderate LAD calcifications. Thoracic Vessels: The aorta and pulmonary arteries demonstrate normal size. Mediastinum and Leslie: No enlarged lymph nodes. Esophagus: No wall thickening. Moderate hiatal hernia. ABDOMEN: Liver: No solid mass. Gallbladder: Absent Biliary ducts: No biliary dilation. Pancreas: Peripancreatic fat stranding. No ductal dilation. Spleen: Size is within normal limits. Adrenal Glands: No adrenal nodules. Kidneys and Ureters: No hydronephrosis. No solid mass. No complex renal cystic lesion which requires follow up. Stomach and Bowel: Normal colonic caliber, without significant wall thickening. Peritoneum: No abnormal intraperitoneal fluid. No free air. Ventral Wall: Small umbilical hernia containing fat. Abdominal Nodes: No retroperitoneal or mesenteric adenopathy by size criteria. Vessels: Aorta and inferior vena cava are normal in size. Bones: Expansile bony mass in the right 9th rib measuring 1.5 x 2.4 cm. IMPRESSION: Acute pancreatitis. Unclear if interstitial or necrotic based on lack of intravenous contrast. Expansile bony mass over the right 9th rib measuring 1.5 x 2.4 cm. No primary identified. Bibasilar reticulation, concerning for interstitial lung disease. Recommend pulmonology referral. Agree with preliminary report. Dictated by: Zuhair Florentino M.D. on 02/11/2024 at 8:38 Approved by: Zuhair Florentino M.D. on 02/11/2024 at 9:12
--- NOTE | 2024-02-11 05:33 | P.HP_ITS ---
History of Present Illness History of Present Illness Date Patient Seen: 02/11/24 Time Patient Seen: 01:30 Chief complaint: sent by [facility], abnormal labs, ekg Narrative: 78 years old female with a past medical history of hypertension, atrial fibrillation on Pradaxa, neuropathy, insomnia and other medical issues presented to the emergency room for progressive pain in the right gluteal region with significant swelling. Apparently, she had been followed up by primary in the outpatient setting and eventually lab workup done in the walk-in clinic showed significant abnormality with calcium and she was advised to come to the emergency room. Does have significant pain in the right gluteal region radiating to the lower extremity. Still has good bowel and bladder control. Denies any nausea vomiting or abdominal pain but has generalized fatigue. Also had insomnia and the dose of amitriptyline was increased from 50 mg to 100 mg recently. Per patient and spouse, she developed significant tremors after the increase of amitriptyline and they are starting to cut back on the dose. Denies any chest pain or shortness of breath. No blurred vision diplopia. Patient is oriented X.3 but has slow thought processing and relies on her spouse to provide more history. In the emergency room subsequent workup showed a calcium level of 14.6 in the setting of normal albumin. Creatinine is 1.8 with a BUN of 43, sodium of 133. Previous calcium on 11/05/2023 was 9.2. Total bilirubin was 0.4 AST/ALT was normal. CBC showed a white count of 10.1 with a hemoglobin of 11.1. Urinalysis is negative for leukocyte esterase and nitrites. EKG shows no acute ST T wave changes. Imaging studies include a CT pelvis that shows destructive osseous lesion large soft tissue component in the posterior right iliac bone extending to significant portions of the sacrum. Emergency room discussed with orthopedic surgeon?Dr. Lara who recommended transferring to a center with orthopedic oncology. Subsequently discussed with orthopedics at the [facility]?Dr. Jasmine who recommended follow-up at the sarcoma clinic. Subsequently reviewed with nephrology. 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 Sister No problems noted. Family/Other No problems noted. Family/Other No problems noted. Social History marital status: household members: spouse lives independently: Yes occupational status: previously employed Smoking Status: Never smoker alcohol intake: current substance use type: marijuana Meds Home Medications and Allergies Home Medications Medication Instructions Recorded Confirmed Type Resmed Aircurve 10 BIPAP #1 ea 03/13/22 02/11/24 History acetaminophen 325 mg capsule 650 mg (2 x 325 mg) PO QID PRN 07/27/22 02/11/24 Rx (Tylenol) pain #60 caps metoprolol succinate 50 mg 50 mg PO BID 10/31/22 02/11/24 History tablet,extended release 24 hr iron glycinate See Rx Instructions .Route .COMPLEX 01/24/23 02/11/24 History amiodarone 100 mg tablet 50 mg PO DAILY 04/17/23 02/11/24 History ascorbate calcium (vitamin C) 500 500 mg PO DAILY 06/27/23 02/11/24 History mg tablet cholecalciferol (vitamin D3) 50 50 mcg PO BID 06/27/23 02/11/24 History mcg (2,000 unit) capsule omeprazole 20 mg capsule,delayed 20 mg PO BID #180 caps 07/25/23 02/11/24 Rx release polyethylene glycol 3350 17 17 g PO DAILY 11/05/23 02/11/24 History gram/dose oral powder (Miralax) atorvastatin 40 mg tablet 40 mg PO QPM #90 tabs 11/06/23 02/11/24 Rx docusate sodium 100 mg capsule 300 mg (3 x 100 mg) PO DAILY #270 11/11/23 02/11/24 Rx caps estradiol 10 mcg vaginal tablet 10 mcg vaginal DAILY 2 weeks #48 11/11/23 02/11/24 Rx tabs amitriptyline 10 mg tablet 10 mg PO USEASDIRECTD 02/11/24 02/11/24 History dabigatran etexilate 150 mg 150 mg PO BID 02/11/24 02/11/24 History capsule (Pradaxa) Allergies Allergy/AdvReac Type Severity Reaction Status Date / Time No Known Drug Allergies Allergy Verified 02/10/24 15:10 Review of Systems Review of Systems Narrative: A 12 point review of system is negative unless otherwise stated in history of present illness Exam Vital Signs (past 8 hours): - 02/10/24 22:00 02/10/24 22:00 02/10/24 22:30 Temperature Pulse Rate 60 60 Respiratory Rate 21 18 Blood Pressure 131/58 L Pulse Oximetry 100 100 Oxygen Delivery Method Nasal Cannula Room Air Oxygen Flow Rate 2 Fraction of Inspired Oxygen 02/10/24 22:30 02/10/24 23:00 02/10/24 23:00 Temperature Pulse Rate 60 Respiratory Rate 20 Blood Pressure 114/57 L 116/59 L Pulse Oximetry 99 Oxygen Delivery Method Room Air Oxygen Flow Rate Fraction of Inspired Oxygen 02/10/24 23:30 02/10/24 23:30 02/11/24 00:00 Temperature Pulse Rate 62 Respiratory Rate 21 Blood Pressure 132/67 176/81 H Pulse Oximetry 100 Oxygen Delivery Method Room Air Oxygen Flow Rate Fraction of Inspired Oxygen 02/11/24 00:00 02/11/24 01:00 02/11/24 01:55 Temperature Pulse Rate 68 Respiratory Rate 19 Blood Pressure Pulse Oximetry 100 95 Oxygen Delivery Method Room Air BiPAP Room Air Oxygen Flow Rate Fraction of Inspired Oxygen 02/11/24 02:01 02/11/24 02:05 02/11/24 03:10 Temperature 97.8 F 97.8 F Pulse Rate 78 78 Respiratory Rate 15 15 Blood Pressure 145/63 H 145/63 H Pulse Oximetry 95 95 Oxygen Delivery Method Nasal Cannula Oxygen Flow Rate 2 Fraction of Inspired Oxygen 28 Fraction of Inspired Oxygen 28 Oxygen Delivery Method Nasal Cannula Oxygen Flow Rate 2 Narrative Exam Narrative: Patient is awake alert. Does appear to be in pain. Significant tenderness noted in the gluteal region. Pulses are noted bilaterally in the lower extremities Objective Labs Labs: Laboratory Results - last 24 hr 02/11/24 00:45 Calcium 13.6 H* Assessment & Plan Assessment & Plan narrative: 78 years old female with a past medical history of hypertension, atrial fibrillation on Pradaxa, neuropathy, insomnia and other medical issues presented to the emergency room for progressive pain in the right gluteal region with significant swelling. Apparently, she had been followed up by primary in the outpatient setting and eventually lab workup done in the walk-in clinic showed significant abnormality with calcium and she was advised to come to the emerg ency room. Does have significant pain in the right gluteal region radiating to the lower extremity. Still has good bowel and bladder control. Denies any nausea vomiting or abdominal pain but has generalized fatigue. Also had insomnia and the dose of amitriptyline was increased from 50 mg to 100 mg recently. Per patient and spouse, she developed significant tremors after the increase of amitriptyline and they are starting to cut back on the dose. Denies any chest pain or shortness of breath. No blurred vision diplopia. Patient is oriented X.3 but has slow thought processing and relies on her spouse to provide more history. In the emergency room subsequent workup showed a calcium level of 14.6 in the setting of normal albumin. Creatinine is 1.8 with a BUN of 43, sodium of 133. Previous calcium on 11/05/2023 was 9.2. Total bilirubin was 0.4 AST/ALT was normal. CBC showed a white count of 10.1 with a hemoglobin of 11.1. Urinalysis is negative for leukocyte esterase and nitrites. EKG shows no acute ST T wave changes. Imaging studies include a CT pelvis that shows destructive osseous lesion large soft tissue component in the posterior right iliac bone extending to significant portions of the sacrum. Emergency room discussed with orthopedic surgeon?Dr. Lara who recommended transferring to a center with orthopedic oncology. Subsequently discussed with orthopedics at the [facility]?Dr. Jasmine who recommended follow-up at the sarcoma clinic. Subsequently reviewed with nephrology. Per recommendation was given IV fluids/calcitonin/IV zoledronate and subsequently admitted for further evaluation 1 Hypercalcemia. Aggressive volume resuscitation with normal saline fluid bolus of 3 L and subsequently continue the normal saline at 150 mL/h. Did receive IM calcitonin/IV Zonegran to the emergency room. Calcium levels closely [address] with possible destructive osseous lesions. After reviewing the images, Dr. Lara recommend CT surveillance to see if there is a primary lesion. CT chest and abdomen has been ordered and follow-up with the final results 3. Sacral pain due to likely malignancy. Continue the IV Dilaudid for severe pain with the as needed [place] for moderate pain and trend 4 atrial fibrillation rate controlled with home metoprolol and anticoagulation with Pradaxa. On amiodarone for rhythm control 5 insomnia. Resume the amitriptyline at reduced doses after verification 6 constipation on stool softeners 7 DVT prophylaxis on Pradaxa Patient will be admitted under inpatient status given the acute hypercalcemia with increased risk for life-threatening complications/cardiac arrhythmias/the need for IV fluids and other intervention. Expected length of stay is greater than 2 midnights
[2024-02-11 06:47] LABS: Add Manual Diff / Slide Review NO; Basophils Absolute Auto 0 /uL (0-100); Basophils Percent Auto 0.3 % (0-2); Eosinophils Absolute Auto 0 /uL (0-450); Hematocrit 30.1 % (36-46); Lymphocytes Absolute Auto 900 /uL (1100-4500); Mean Corpuscular Hemoglobin 27.9 PG (26-34); Mean Corpuscular Volume 84.5 fL (80-100); Monocytes Absolute Auto 800 /uL (0-900); Monocytes Percent Auto 7.3 % (3-14); Neutrophils Absolute Auto 9300 /uL (1500-7000); Neutrophils Percent Auto 84.4 % (50-75); Platelet Count 344 X10^3/uL (150-400); Red Blood Cell Count 3.57 X10^6/uL (4.0-5.2); Red Cell Distribution Width 15.3 % (11.6-14.8)
[2024-02-11 07:01] LABS: Alanine Aminotransferase 23 IU/L (<35); Albumin 3.2 g/dL (3.5-5.0); Albumin Globulin Ratio 1.2 (1.0-2.8); Alkaline Phosphatase 78 U/L (38-126); Aspartate Aminotransferase 27 IU/L (14-36); BUN Creatinine Ratio 19.5 (6-22); Bilirubin Total 0.2 mg/dL (0.2-1.3); Blood Urea Nitrogen 29 mg/dL (7-17); Calcium 11.7 mg/dL (8.4-10.2); Carbon Dioxide 26 mmol/L (22-32); Chloride 116 mmol/L (98-107); Estimated Glomerular Filt Rate 36 mL/min (>60); Globulin 2.6 g/dL (1.7-4.1); Glucose 127 mg/dL (80-110); HEMOLYSIS < 15 (0-50); Magnesium 2.3 mg/dL (1.6-2.3); Phosphorous 2.6 mg/dL (2.8-4.1); Potassium 3.5 mmol/L (3.4-5.1); Sodium 145 mmol/L (137-145); Total Protein 5.8 g/dL (6.3-8.2)
[2024-02-11 07:09] LABS: NT-proBNP (BNP-Adult 18+) 2650 pg/mL (<450)
--- NOTE | 2024-02-11 08:53 | PC.NURSE ---
Addendum entered by Juhi Ayala R.N. 02/11/24 19:26: 1847- Patient had a 12 beat run of SNADEC. is aware. Patients k riders have been started. She will also be getting some iv ammiodarone shortly. Addendum entered by Juhi Ayala R.N. 02/11/24 12:57: Checked on patient and she seems to be feeling better after having a bout of emesis and nausea today. She wants to keep drinking and drinking fluids, we have decided to let her rest her stomach for a bit and see how she feels. She is on clear liquids at this time time. Resting comfortably. Addendum entered by Juhi Ayala R.N. 02/11/24 11:06: Patients is here, he is inquisitive and pleasant with and staff. He brought patients pradaxa in and they just finished talking with Dr. Bradshaw. Patient had a 100cc emesis. We explained to patient that we want her to rest her stomach for a bit, she has been drinking some warm water. She tried some fruit but this made her stomach upset. Medicated and zofran given earlier to patient. Original Note: Patient is pleasant and cooperative. Given 0.5mg of iv dilaudid and zofran for some nausea. Patient rates pain to r.hip area at a 7/10. She is eating some fruit for breakfast and drinking hot water, she states that she has not eaten much in the last few days. Patients will bring patients pradaxa in from home later today, per hourly shift manager RN. Patient is resting now.
--- NOTE | 2024-02-11 10:51 | DIET.CONS ---
Dietary Consultation Note Admission Date: 02/10/2024 23:19 Assessment: 78 y F admitted with hypercalcemia. Nutrition consulted for weight loss and decreased appetite. Met with pt and spouse at bedside. Reports dramatic decrease in oral intakes 4-6 weeks ago in setting of nausea, vomiting, weakness. Notes ongoing constipation. Incident of emesis during visit. Per hospitalist, pt with pancreatitis, going on clear liquids. Cancelled lunch order. Diet recall: For the last 6-7 days has only been doing [employer] protein drinks 2-3x/day, which patient has tolerated. Nutrition focused physical exam: Muscle wasting: moderate loss temporalis, moderate loss clavicle region, mild loss interosseous Subcutaneous fat loss: moderate loss buccal and orbital fat pads, mild loss triceps Ht: 162.56 cm Wt: 54.431 kg BMI: 20.5 (underweight for age) UBW: 58.513 kg on 12/31/23 (7% weight loss in 1 month, severe) Last BM: 02/10/24 (02/11/24 01:00) MNA: 6 Josiah Score: 19 Diet: 02/11/24 Lunch Low/restricted Fat Diet Diet Modifications: Dietary Fat allowed: 25 grams (pancreatitis) Food Texture: Level 7 - Regular Liquid Consistency: Level 0 - Thin Nutrition Percent Meal Consumed 0% 02/11/24 08:29 Labs: RBC 3.57 X10^6/uL (4.0-5.2) L 02/11/24 06:35 Hgb 10.0 g/dL (12.0-16.0) L 02/11/24 06:35 Hct 30.1 % (36-46) L 02/11/24 06:35 Creatinine 1.49 mg/dL (0.52-1.04) H 02/11/24 06:35 NT-Pro-B Natriuret Pep 2650 pg/mL (<450) H 02/11/24 06:35 Nutrition Diagnosis: Severe Acute Protein Calorie Malnutrition r/t inadequate oral intake in setting of pancreatitis as evidenced by 7% weight loss in 1 month, severe, moderate muscle wasting (temporalis, deltoids, pectoralis, trapezius), moderate subcutaneous fat loss (buccal and orbital fat pads), <50% of estimated energy intake per diet recall for 7 days, BMI 20.5 (underweight for age). The patient is at much higher risk for medical and surgical complications because of their malnutrition. This increases the difficulty and complexity of medical and surgical interventions and increases the chances of poor outcomes such as morbidity and mortality. Interventions: 1. Clear liquids, plan of care ongoing EER: 3089-1660 kcals (25-30 kcals/kg) 70-80 g protein (1.25-1.5 g/kg per malnutrition, pancreatitis) Monitoring/Evaluations: diet advancement as tolerated/medically able Electronically Signed by: Florinda Dobbs 02/11/24 10:[address] [id number]
--- NOTE | 2024-02-11 11:44 | PM.HP.1 ---
History of Present Illness History of Present Illness Date Patient Seen: 02/11/24 Time Patient Seen: 11:46 Chief complaint: sent by [facility], abnormal labs, ekg Narrative: Per overnight provider, 78 years old female with a past medical history of hypertension, atrial fibrillation on Pradaxa, neuropathy, insomnia and other medical issues presented to the emergency room for progressive pain in the right gluteal region with significant swelling. Apparently, she had been followed up by primary in the outpatient setting and eventually lab workup done in the walk-in clinic showed significant abnormality with calcium and she was advised to come to the emergency room. Does have significant pain in the right gluteal region radiating to the lower extremity. Still has good bowel and bladder control. Denies any nausea vomiting or abdominal pain but has generalized fatigue. Also had insomnia and the dose of amitriptyline was increased from 50 mg to 100 mg recently. Per patient and spouse, she developed significant tremors after the increase of amitriptyline and they are starting to cut back on the dose. Denies any chest pain or shortness of breath. No blurred vision diplopia. Patient is oriented X.3 but has slow thought processing and relies on her spouse to provide more history. In the emergency room subsequent workup showed a calcium level of 14.6 in the setting of normal albumin. Creatinine is 1.8 with a BUN of 43, sodium of 133. Previous calcium on 11/05/2023 was 9.2. Total bilirubin was 0.4 AST/ALT was normal. CBC showed a white count of 10.1 with a hemoglobin of 11.1. Urinalysis is negative for leukocyte esterase and nitrites. EKG shows no acute ST T wave changes. Imaging studies include a CT pelvis that shows destructive osseous lesion large soft tissue component in the posterior right iliac bone extending to significant portions of the sacrum. Emergency room discussed with orthopedic surgeon?Dr. Lara who recommended transferring to a center with orthopedic oncology. Subsequently discussed with orthopedics at the [facility]?Dr. Jasmine who recommended follow-up at the sarcoma clinic. Subsequently reviewed with nephrology. Per recommendation was given IV fluids/calcitonin/IV zoledronate and subsequently admitted for further evaluation Updates: This is a 78 year old female with PMH of aflutter, complete heart block s/p dual chamber PPM, non-obstructive CAD presenting with a right leg mass. Found to have pelvic bone lesion and soft tissue mass. CT scan also showing a lesion on her R 9th rib. She has had a lot of workup for abdominal pain recently. Her CT abdomen today showed pancreatitis, and her abdominal pain is epigastric radiating to the back. Calcium as 15.6, now improved to 11. Lipase is >4000. She was nauseous and vomited during my visit with her this morning. also reports she had manometry done last week for esophageal dysmotility. I can see that this was done but there are no results reports available as I can access CareEverywhere for her now. Discussed with orthopedic surgery, there is no current management recommended, surgeon did say that patient can weight bear as tolerated. Her cardiac history here is copied from an outpatient cardiology note recently. LV function and a past medical history of obstructive sleep apnea, nonobstructive coronary artery disease, nonsustained VT, typical atrial flutter and 2 prior ablations in 2017 and 2020, paroxysmal A. fib for which she is now on amiodarone since 07/28/2022. The dose has been tapered down and beginning 11/19/2022 amiodarone was reduced to 50 mg daily. Back in June, a 1 week Zio patch licensed clinical psychologist was placed on Brenda looking for the cause of her increased palpitations. Coincidentally while wearing the monitor, 7 episodes of intermittent complete heart block with pauses of 3.5-15.8 seconds were documented. She was syncopal on 1 occasion and so she received a dual-chamber pacemaker on 07/09/2022 and is doing well with that. ON LICENSE OF [facility] Medical History Rectal prolapse Pelvic congestion syndrome Hiatal hernia 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) Gallstone Profound anemia Positive FIT (fecal immunochemical test) GIB (gastrointestinal bleeding) Diverticulosis Atrial flutter Current use of intermediate designer anticoagulation Hyperlipidemia GERD (gastroesophageal reflux disease) Rosacea Heart palpitations (2005) Scoliosis (1961) Obstructive sleep apnea of adult Primary insomnia Snoring (~1995) Surgical History History of esophagogastroduodenoscopy (EGD) (06/18/23) Hx of cholecystectomy (07/27/22) H/O craniotomy History of right cataract surgery (10/29/12) History of left cataract surgery (11/12/12) History of spinal surgery (1961) Family History Father Heart disease Mother Pneumonia Brother No problems noted. Sister No problems noted. Family/Other No problems noted. Family/Other No problems noted. Social History marital status: household members: spouse lives independently: Yes occupational status: previously employed Smoking Status: Never smoker alcohol intake: current substance use type: marijuana Meds Home Medications and Allergies Home Medications Medication Instructions Recorded Confirmed Type Resmed Aircurve 10 BIPAP #1 ea 03/13/22 02/11/24 History acetaminophen 325 mg capsule 650 mg (2 x 325 mg) PO QID PRN 07/27/22 02/11/24 Rx (Tylenol) pain #60 caps metoprolol succinate 50 mg 50 mg PO BID 10/31/22 02/11/24 History tablet,extended release 24 hr iron glycinate See Rx Instructions .Route .COMPLEX 01/24/23 02/11/24 History amiodarone 100 mg tablet 50 mg PO DAILY 04/17/23 02/11/24 History ascorbate calcium (vitamin C) 500 500 mg PO DAILY 06/27/23 02/11/24 History mg tablet cholecalciferol (vitamin D3) 50 50 mcg PO BID 06/27/23 02/11/24 History mcg (2,000 unit) capsule omeprazole 20 mg capsule,delayed 20 mg PO BID #180 caps 07/25/23 02/11/24 Rx release polyethylene glycol 3350 17 17 g PO DAILY 11/05/23 02/11/24 History gram/dose oral powder (Miralax) atorvastatin 40 mg tablet 40 mg PO QPM #90 tabs 11/06/23 02/11/24 Rx docusate sodium 100 mg capsule 300 mg (3 x 100 mg) PO DAILY #270 11/11/23 02/11/24 Rx caps estradiol 10 mcg vaginal tablet 10 mcg vaginal DAILY 2 weeks #48 11/11/23 02/11/24 Rx tabs amitriptyline 10 mg tablet 10 mg PO USEASDIRECTD 02/11/24 02/11/24 History dabigatran etexilate 150 mg 150 mg PO BID 02/11/24 02/11/24 History capsule (Pradaxa) Allergies Allergy/AdvReac Type Severity Reaction Status Date / Time No Known Drug Allergies Allergy Verified 02/10/24 15:10 Review of Systems Review of Systems Narrative: All other systems reviewed with the patient and are negative unless otherwise stated. Exam Vital Signs (past 8 hours): - 02/11/24 05:34 02/11/24 06:37 02/11/24 08:00 Temperature 97.7 F 97.6 F Pulse Rate 73 74 Respiratory Rate 16 16 Blood Pressure 156/63 H 145/75 H Pulse Oximetry 98 96 99 Oxygen Delivery Method Nasal Cannula Oxygen Flow Rate 2 2 02/11/24 08:00 02/11/24 09:00 Temperature 97.6 F Pulse Rate 74 Respiratory Rate 16 Blood Pressure 145/75 H Pulse Oximetry 99 Oxygen Delivery Method Room Air Oxygen Flow Rate 2 Fraction of Inspired Oxygen 28 Oxygen Delivery Method Room Air Oxygen Flow Rate 2 Narrative Exam Narrative: Gen: in acute distress, lateral recumbent vomiting into emesis bag CV: RRR no m/r/g Pulm: CTA b/l Abd: Soft, tender epigastrium, non-distended Ext: trace edema b/l LE Objective Labs 02/11/24 06:35 02/11/24 06:35 Labs: Laboratory Results - last 24 hr 02/11/24 02/11/24 00:45 06:35 WBC 11.0 RBC 3.57 L Hgb 10.0 L Hct 30.1 L MCV 84.5 MCH 27.9 MCHC 33.0 RDW 15.3 H Plt Count 344 Neut % (Auto) 84.4 H Lymph % (Auto) 8.0 L [place] % (Auto) 7.3 Eos % (Auto) 0.0 L Baso % (Auto) 0.3 Neut # (Auto) 9300 H Lymph # (Auto) 900 L [place] # (Auto) 800 Eos # (Auto) 0 Baso # (Auto) 0 Sodium 145 D Potassium 3.5 Chloride 116 H Carbon Dioxide 26 BUN 29 H Creatinine 1.49 H Estimated GFR 36 L BUN/Creatinine Ratio 19.5 Glucose 127 H Calcium 13.6 H* 11.7 H Phosphorus 2.6 L Magnesium 2.3 Total Bilirubin 0.2 AST 27 ALT 23 Alkaline Phosphatase 78 NT-Pro-B Natriuret Pep 2650 H Total Protein 5.8 L Albumin 3.2 L Globulin 2.6 Albumin/Globulin Ratio 1.2 Assessment & Plan Assessment & Plan narrative: 1. Hypercalcemia with acute metabolic encephalopathy - given calcitonin IM x1 dose, zolendronic acid x1. - continue IV fluids. - likely due to combination of dehydration and malignancy - Calcium improved from 15.6 on admit to 11.7. Patient's presenting symptoms of confusion / brain fog likely due to elevated Calcium level. 2. Acute pancreatitis - previous documentation has said she drinks one glass of wine per day. - she has also previously had cholelithiasis, and previous cystic lesions on pancreas in previous imaging. - differential includes alcohol induced, malignancy, and gallstone. Gallstones less likely with normal AST/ALT and bilirubin. 3. Multiple lytic bone lesions - lytic lesions noted in her R pelvis and 9th R rib. - discussed with orthopedics, no surgical management needed, patient can be WBAT to her R side. - will need urgent outpatient follow up. Patient's saw [facility] oncology and she would like to go there. - consider biopsy of mass if able, though currently is on dabigatran. - unclear if primary bone malignany at this time or metastatic ? from pancreas based on pancreas findings today. Ordered for CEA and CA 19-9. 4. JAZ - continue IV fluids. Cr 1.8 on admit, improved to 1.49 with fluids thus far. Baseline appears to be around 0.6. 5. History of atrial flutter, complete block s/p dual chamber PPM. - continue anticoagulation for now - unable to get MRI if needed at [facility] 6. Normocytic anemia 7. Esophageal dysmotility - previous barium swallow showed esophageal dysmotility. Had manometry 1 week ago, reports are not currently available for review in review of CareEverywhere. - will see if these results can be obtained once able. Code: Full, surrogate is patient's spouse DVT: on full AC for atrial flutter. I have utilized all available immediate resources to obtain, update, or review the patient's current medications. Dispo: patient admitted under inpatient status. Unclear if will be able to discharge home or possible SNF, will have PT/OT evaluations. Additional history obtained via discussions with the overnight provider, orthopedic provider, and spouse today. These discussions contributed to the creation of the above assessment and plan. I have reviewed patient's presenting documentation, labs, and imaging personally.
[2024-02-11 11:51] LABS: Lipase > 4000 U/L (23-300)
[2024-02-11 13:27] LABS: INR 1.1 (0.9-1.3)
--- NOTE | 2024-02-11 15:10 | CM.DANOTE ---
Initial DCP Assessment Visit Note Reviewed EMR and team rounds for status updates. Met with pt/spouse at bedside to introduce self and role, pt was found to be somnolent, but was easily arousable and able to participate in assessment to discuss concerns/questions/needs/preferences for d/c. Pt resides independently in her own home w/spouse here in [place]. Her spouse will transport her home once she's been medically cleared for d/c, anticipated for tomorrow, 02/12/24. Payor: [facility] Adv PCP: Jessica Dobbs Pt is a 78 year-old F who was sent by the [id number] for 5-6 weeks worsening R-sided buttock pain/swelling. She was then sent to the ED based on the findings of abmnormal labs during her visit. Her spouse shared w/ED staff that she has also been more confused w/brain fog since her symtoms/pain have worsened. CT pelvis showed a destructive bony lesion in her pelvis, and another lesion in her rib. was consulted, and the decision was made to keep her here locally with the plan of an urgent OP ONC consult referral placed for d/c. Her labs did also show hypercalcemia, and today is showing pancreatitis as well. She was started on IV fluids and pain medication, and admitted for futher tx/ monitoring. This EYE TECHNICIAN did send a message to her PCP, Jessica Dobbs, requesting that she start a referral for [facility] for a stat authorization for [facility], so it will speed up her getting scheduled at [facility]. DCP will continue to follow for evolving needs and assist as she gets ready for d/c back home. Discharge Planning/Care Management CM Discharge Assessment Start: 02/11/24 15:04 Freq: Status: Active Protocol: Document 02/11/24 15:08 DPL (Rec: 02/11/24 15:09 DPL [id number]) Discharge Planning Assessment Assigned Lathe Scalper Operator TRUONG Ledezma Advance Directives? Yes: DEIRDRE Advance Directives on File Yes History Provided By Patient,Significant Other, Medical Record Has Patient been admitted in last 30 No days? Prior Living Arrangements House Household Members spouse Type of transporation used prior to Drives own vehicle admit Independent with ADL's Yes Is patient alert and oriented? Yes Comment N/A Caregiver for Another No Comment N/A Comment OP ONC referral f/u. Barriers to Discharge No Discharge Plan Home Transportation Arrangement Spouse Referrals Initiated None needed Whiteboard Updated in Patient Room with Yes name and ext. # of Lathe Scalper Operator Review Status In Process Please Provide Date Initial DC 02/11/24 Assessment Was Performed
[2024-02-11] MEDS: METOCLOPRAMIDE 10 MG/2 ML INJ IV (15:34)
[2024-02-11 18:29] LABS: BUN Creatinine Ratio 19.7 (6-22); Blood Urea Nitrogen 27 mg/dL (7-17); Carbon Dioxide 24 mmol/L (22-32); Chloride 115 mmol/L (98-107); Estimated Glomerular Filt Rate 40 mL/min (>60); Glucose 98 mg/dL (80-110); HEMOLYSIS < 15 (0-50)
[2024-02-11 18:41] LABS: Calcium 10.9 mg/dL (8.4-10.2); Potassium 3.3 mmol/L (3.4-5.1); Sodium 143 mmol/L (137-145)
[2024-02-11] MEDS: POTASSIUM CHLORIDE IN WATER 10 MEQ/100 ML PIGGYBACK 100 MEQ IV ×4 (19:03→22:54)
--- NOTE | 2024-02-11 19:04 | PC.NURSE ---
184 Pt has had 14 back to back episodes of SVT, Provider and nurse notified, no new orders at this time
[2024-02-11] MEDS: OXYCODONE IR 5 MG TABLET PO (19:32)
[2024-02-11] MEDS: AMIODARONE 600 MG IV (20:09)
[2024-02-11] MEDS: METOPROLOL ER 50 MG TABLET 100 MG PO (20:17)
[2024-02-11] MEDS: DABIGATRAN 75 MG CAPSULE 150 MG PO (20:17)
[2024-02-11] MEDS: CHOLECALCIFEROL (VITAMIN D3) 1,000 UNIT TABLET 2000 UNIT PO (20:17)
[2024-02-11] MEDS: AMIODARONE 200 MG TABLET 100 MG PO (20:18)
--- NOTE | 2024-02-11 21:22 | PC.NURSE ---
Patient had several runs of Vtach on ekg monitor,300 mg IV Amiodarone ordered, administered at 2035 while on telemetry monitoring, tolerated IV medication with no complaints, current HR 89.
--- NOTE | 2024-02-11 23:40 | PC.NURSE ---
Patient is alert and oriented. Breath sounds CTA with RA sat of 97% but has increased abdominal pain when taking deep breaths. She normally uses bipap at home and does not have machine with her and did not want to use the one from the hospital but had decreasing sats when asleep so placed on oxygen per NC at 1L/min to keep sats > 92%. HR irregular with history of afib; telemetry reading was afib RVR + BBB. Did have 12 beat run of v-tach on previous shift so was medicated with IV Amiodorone per PATIENTS TRANSPORTERChon and has been getting K+ riders; HR is now in the 80's. Previous shift nausea/vomiting but has denied this shift and able to take po meds without problem. BT present and is passing flatus. Has external catheter in place for the night; denied any dysuria. Assisted to reposition q2h as having some difficulty with doing it independently. Is unable to lie on right side related to pain. Was medicated with oxycodone at start of shift for pain in right buttock radiating down leg and with Dilaudid at 2122 for upper abdominal pain and is currently asleep. Was assisted to sit on edge of bed for brief period of time but no attempt to stand. Bilateral calf SCD's were placed on patient at start of shift and is tolerating them well. Fall risk score is high and bed alarm is activated.
[2024-02-12] VITALS (14 sets, daily range): BP systolic 117–133; BP diastolic 43–72; PULSE 76–143; RESP 12–18; TEMP 36.8–37.2; O2SAT 94–100
[2024-02-12] MEDS: ONDANSETRON 4 MG/2 ML INJ IV ×2 (01:06→08:31)
[2024-02-12] MEDS: OXYCODONE IR 5 MG TABLET PO ×2 (01:37→10:55)
[2024-02-12] MEDS: SODIUM CHLORIDE 0.9% 1,000 ML 75 ML IV ×2 (02:43→22:19)
[2024-02-12 07:00] LABS: Add Manual Diff / Slide Review NO; Basophils Absolute Auto 0 /uL (0-100); Basophils Percent Auto 0.2 % (0-2); Eosinophils Absolute Auto 0 /uL (0-450); Hematocrit 27.7 % (36-46); Hemoglobin 9.1 g/dL (12.0-16.0); Lymphocytes Absolute Auto 900 /uL (1100-4500); Lymphocytes Percent Auto 5.5 % (25-40); Mean Corpuscular HGB Conc 32.7 % (30-36); Mean Corpuscular Hemoglobin 27.7 PG (26-34); Mean Corpuscular Volume 84.5 fL (80-100); Monocytes Absolute Auto 1300 /uL (0-900); Monocytes Percent Auto 7.3 % (3-14); Neutrophils Absolute Auto 15000 /uL (1500-7000); Platelet Count 335 X10^3/uL (150-400); Red Blood Cell Count 3.28 X10^6/uL (4.0-5.2); Red Cell Distribution Width 15.4 % (11.6-14.8); White Blood Cell Count 17.3 X10^3/uL (4.5-11.0)
[2024-02-12 07:17] LABS: Alanine Aminotransferase 21 IU/L (<35); Albumin 2.8 g/dL (3.5-5.0); Alkaline Phosphatase 70 U/L (38-126); Aspartate Aminotransferase 24 IU/L (14-36); BUN Creatinine Ratio 13.2 (6-22); Bilirubin Total 0.2 mg/dL (0.2-1.3); Blood Urea Nitrogen 17 mg/dL (7-17); Calcium 9.6 mg/dL (8.4-10.2); Carbon Dioxide 23 mmol/L (22-32); Chloride 109 mmol/L (98-107); Estimated Glomerular Filt Rate 43 mL/min (>60); Globulin 2.7 g/dL (1.7-4.1); Glucose 92 mg/dL (80-110); HEMOLYSIS < 15 (0-50); Magnesium 1.8 mg/dL (1.6-2.3); Sodium 136 mmol/L (137-145); Total Protein 5.5 g/dL (6.3-8.2)
[2024-02-12] MEDS: HYDROMORPHONE 0.5 MG INJ IV ×2 (07:40→13:42)
[2024-02-12 07:47] LABS: Carcinoembryonic Antigen 2.5 ng/mL (0.1-3.0)
[2024-02-12] MEDS: POTASSIUM CHLORIDE IN WATER 10 MEQ/100 ML PIGGYBACK 100 MEQ IV ×4 (08:03→11:20)
[2024-02-12] MEDS: METOPROLOL ER 50 MG TABLET 100 MG PO ×2 (08:23→21:03)
[2024-02-12] MEDS: DABIGATRAN 75 MG CAPSULE 150 MG PO ×2 (08:23→21:04)
[2024-02-12] MEDS: AMIODARONE 200 MG TABLET 100 MG PO ×2 (08:23→21:04)
[2024-02-12] MEDS: polyethylene glycoL 3350 17 GM POWD.PACK PO (08:24)
[2024-02-12] MEDS: CHOLECALCIFEROL (VITAMIN D3) 1,000 UNIT TABLET 2000 UNIT PO ×2 (08:24→21:04)
--- NOTE | 2024-02-12 11:27 | CM.DPC ---
DCP Cont. Reviewed EMR and team rounds for status updates. Per Hospitalist, pt may be transferred today to a higher level of care hospital due to cardiac issues overnight and complicated factors with the pancreatitis and infection. Will monitor for final plan and assist if needed.
[2024-02-12] MEDS: MEROPENEM 1 GM in SODIUM CHLORIDE 0.9% 100 ML IV (12:54)
--- NOTE | 2024-02-12 14:16 | DI.RAD.S_ITS ---
PROCEDURE: XR CHEST FOR PICC 1V INDICATIONS: line placement TECHNIQUE: One view of the chest was acquired. COMPARISON: [facility], , CHEST 1 VIEW, 07/05/2017, 17:10. FINDINGS: Surgical changes and devices: Left upper extremity approach PICC tip projects over the peripheral innominate vein. Left chest wall generator with cardiac leads. Lungs and pleura: Lungs are clear. Probable small left pleural effusion.. Mediastinum: Mediastinal contours appear normal. Heart size is normal. Bones and chest wall: No suspicious bony lesions. Overlying soft tissues appear unremarkable. IMPRESSION: Left upper extremity approach PICC tip projects over the peripheral innominate vein. Recommend advancement. Dictated by: Zuhair Florentino M.D. on 02/12/2024 at 14:48 Approved by: Zuhair Florentino M.D. on 02/12/2024 at 14:49
--- NOTE | 2024-02-12 15:19 | PM.PN.1 ---
Subjective Subjective Interval history: 78 F admitted with hypercalemia, new bone masses, and pancreatitis. Several episodes of V-tach on the monitor. Discussed with cardiology recommended amiodarone 300 mg IV, with increase to 100 mg BID and increasing metoprolol to 100 mg BID. Episodes are a bit less frequent today. Tolerating a very small amount of clears today, continues to have abdominal pain though it may be slightly better today. Doesn't have any back pain. PICC line was put in on the L side, unable to get to IVC with PPM wires likely. Exam Vital Signs (past 8 hours): - 02/12/24 07:33 02/12/24 08:00 02/12/24 09:15 Temperature 99.0 F Pulse Rate 77 76 Respiratory Rate 17 Blood Pressure 127/55 L Pulse Oximetry 99 Oxygen Delivery Method Nasal Cannula Oxygen Flow Rate 0 Fraction of Inspired Oxygen 02/12/24 10:09 02/12/24 12:00 02/12/24 12:14 Temperature 98.9 F Pulse Rate 79 Respiratory Rate 18 Blood Pressure 127/55 L Pulse Oximetry 98 96 96 Oxygen Delivery Method Nasal Cannula Nasal Cannula Oxygen Flow Rate 1 1 Fraction of Inspired Oxygen 24 Fraction of Inspired Oxygen 24 SaO2/FiO2 Ratio 408 Oxygen Delivery Method Nasal Cannula Oxygen Flow Rate 1 Narrative Exam Narrative: Gen: in acute distress, lateral recumbent vomiting into emesis bag CV: RRR no m/r/g Pulm: CTA b/l Abd: Soft, tender epigastrium, non-distended Ext: trace edema b/l LE Objective Labs 02/12/24 06:45 02/12/24 06:45 Labs: Laboratory Results - last 24 hr 02/11/24 02/12/24 17:35 06:45 WBC 17.3 H D RBC 3.28 L Hgb 9.1 L Hct 27.7 L MCV 84.5 MCH 27.7 MCHC 32.7 RDW 15.4 H Plt Count 335 Neut % (Auto) 87.0 H Lymph % (Auto) 5.5 L [place] % (Auto) 7.3 Eos % (Auto) 0.0 L Baso % (Auto) 0.2 Neut # (Auto) 48359 H Lymph # (Auto) 900 L [place] # (Auto) 1300 H Eos # (Auto) 0 Baso # (Auto) 0 Sodium 143 136 L Potassium 3.3 L 3.0 L Chloride 115 H 109 H Carbon Dioxide 24 23 BUN 27 H 17 Creatinine 1.37 H 1.29 H Estimated GFR 40 L 43 L BUN/Creatinine Ratio 19.7 13.2 Glucose 98 92 Calcium 10.9 H 9.6 Magnesium 1.8 Total Bilirubin 0.2 AST 24 ALT 21 Alkaline Phosphatase 70 Total Protein 5.5 L Albumin 2.8 L Globulin 2.7 Albumin/Globulin Ratio 1.0 Carcinoembryonic Ag 2.5 PFSH Medical History Rectal prolapse Pelvic congestion syndrome Hiatal hernia 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) Gallstone Profound anemia Positive FIT (fecal immunochemical test) GIB (gastrointestinal bleeding) Diverticulosis Atrial flutter Current use of fpc anticoagulation Hyperlipidemia GERD (gastroesophageal reflux disease) Rosacea Heart palpitations (2005) Scoliosis (1961) Obstructive sleep apnea of adult Primary insomnia Snoring (~1995) Surgical History History of esophagogastroduodenoscopy (EGD) (06/18/23) Hx of cholecystectomy (07/27/22) H/O craniotomy History of right cataract surgery (10/29/12) History of left cataract surgery (11/12/12) History of spinal surgery (1961) Family History Father Heart disease Mother Pneumonia Brother No problems noted. Sister No problems noted. Family/Other No problems noted. Family/Other No problems noted. Social History marital status: household members: spouse lives independently: Yes occupational status: previously employed Smoking Status: Never smoker alcohol intake: current substance use type: marijuana Assessment & Plan Assessment & Plan narrative: 1. Hypercalcemia with acute metabolic encephalopathy, improved - given calcitonin IM x1 dose, zolendronic acid x1. - continue IV fluids today. - likely due to combination of dehydration and malignancy - Calcium improved from 15.6 on admit to normal now. Patient's presenting symptoms of confusion / brain fog likely due to elevated Calcium level. 2. Acute pancreatitis, ongoing - previous documentation has said she drinks one glass of wine per day. - she has also previously had cholelithiasis, but had gallbladder removed and previous cystic lesions on pancreas in previous imaging with MRI. Attempted to transfer to [facility] given her complexity, and consideration of pancreas MRI for further evaluation, along with oncology consultation but their beds are currently full. - differential includes alcohol induced, malignancy. - unclear how long it will take as underlying etiology is not certain. PICC line was attempted as there may be a possible need for TPN, but was put in on the L side with PPM wires in place and unable to get to central location. Likely in subclavian. - Amiodarone is a rare cause as well, though patient with several episodes of V-tach yesterday and amiodarone is likely needed for her arrythmia. Consider stopping amiodarone but likely would need urgent cardiology follow up. 3. Multiple lytic bone lesions - lytic lesions noted in her R pelvis and 9th R rib. - discussed with orthopedics, no surgical management needed, patient can be WBAT to her R side. - will need urgent outpatient follow up. Patient's saw [facility] oncology and she would like to go there. - consider biopsy of mass if able, though currently is on dabigatran. - unclear if primary bone malignany at this time or metastatic ? from pancreas based on pancreas findings today. Ordered for CEA and CA 19-9. CEA is normal. Consider transfer for MR abdomen given prior cystic lesions noted on abdominal MR. 4. JAZ - continue IV fluids. Cr 1.8 on admit, improved to 1.29 with fluids thus far. Baseline appears to be around 0.6. 5. History of atrial flutter, complete block s/p dual chamber PPM. - continue anticoagulation for now - unable to get MRI if [facility] at [facility] - multiple episodes of vtach on monitor on 02/10. Got 300 mg IV amiodarone, increase oral metoprolol to 100 mg BID and increased amiodarone to 100 mg BID as well after discussing with road traffic controller singing telegram performer on 02/10. 6. Normocytic anemia 7. Esophageal dysmotility - previous barium swallow showed esophageal dysmotility. Had manometry 1 week ago, not consistent with achalasia per report. No obvious etiology was noted. Code: Full, surrogate is patient's spouse DVT: on full AC for atrial flutter. I have utilized all available immediate resources to obtain, update, or review the patient's current medications. Dispo: patient admitted under inpatient status. Unclear if will be able to discharge home or possible SNF, will have PT/OT evaluations. Attempted to transfer for possible higher level of care given patient's complexity, will continue to attempt but no beds at [facility]. Patient does not wish to go to [place]. Reason for transfer at this time is for cardiology consultation, MRI with PPM for ? pancreatic cancer and pancreatitis, and possible oncology workup / biopsy. Additional history obtained via discussions with the overnight provider, orthopedic provider, and spouse today. These discussions contributed to the creation of the above assessment and plan. I have reviewed patient's presenting documentation, labs, and imaging personally.
--- NOTE | 2024-02-12 18:14 | PC.NURSE ---
Day shift: Pt with Sinus TAch at approx 1800. Dr Bradshaw aware and has ordered 1L bolus. Giving now.
[2024-02-12] MEDS: SODIUM CHLORIDE 0.9% 1,000 ML 1000 ML IV (18:21)
[2024-02-12] MEDS: dilTIAZem 25 MG/5 ML SDV 15 MG IV (21:01)
[2024-02-12] MEDS: SODIUM CHLORIDE 0.9% FLUSH 10 ML IV (21:05)
--- NOTE | 2024-02-12 23:27 | PC.NURSE ---
At shift change patient was receiving IVF bolus related to tachycardia but once bolus infused continued to be running HR of 120-130 range. Per BLANKET CUTTER HANDDodie, patient is in ST. Patient complains of SOB but is able to speak in complete sentences and O2 sat was 98% on oxygen at 1L/min (which she is on due to sleep apnea). Dr. Bradshaw was informed and he stated to just continue infusing IVF at 75cc/h. Dr. Melgoza informed via webex and orders received for IV Diltiazem which was given and HR did initially drop down into 70-80 range but is now again fluctuating 90-140 range with pacemaker spikes noted only occasionally at 90 range. Discussed with BLANKET CUTTER HAND, Chon, and he is going to contact Dr. Melgoza to discuss the situation. Patient is alert and oriented but forgetful and complains of feeling foggy. Breath sounds CTA. Telemetry reading was ST. Patient denied nausea and was able to tolerate taking pills with water and no nausea/vomiting. BT present and abdomen is soft but patient reports no flatus. Is having upper abdominal pain but rates severity as only 2/10 and declined pain medication; is tender across upper abdomen. Has external catheter on as has not been able to get out of bed related to pain/weakness. Is assisted to reposition q2h. Wearing bilateral calf SCD's. Fall risk score is high and bed alarm is activated.
--- NOTE | 2024-02-12 23:45 | PC.NURSE ---
Patient HR between 70's-140's sinus Tachycardia after IVP of Cardizem 15 mg, hospitalist on duty updated, hospitalist inquired about Metoprolol which she had, no further message from hospitalist.
[2024-02-13] VITALS: BP 122/65; PULSE 80; RESP 18; TEMP 36.4; O2SAT 95
[2024-02-13] MEDS: MEROPENEM 1 GM in SODIUM CHLORIDE 0.9% 100 ML IV (01:07)
[2024-02-13 05:03] VITALS: BP 117/64; PULSE 82; RESP 18; TEMP 37; O2SAT 94
[2024-02-13] MEDS: SODIUM CHLORIDE 0.9% FLUSH 10 ML IV ×2 (06:10→08:17)
[2024-02-13 06:26] LABS: Add Manual Diff / Slide Review NO; Basophils Absolute Auto 0 /uL (0-100); Basophils Percent Auto 0.2 % (0-2); Eosinophils Absolute Auto 0 /uL (0-450); Eosinophils Percent Auto 0.1 % (2-4); Hematocrit 26.1 % (36-46); Hemoglobin 8.6 g/dL (12.0-16.0); Lymphocytes Absolute Auto 900 /uL (1100-4500); Lymphocytes Percent Auto 5.6 % (25-40); Mean Corpuscular Volume 84.8 fL (80-100); Monocytes Absolute Auto 1100 /uL (0-900); Monocytes Percent Auto 6.4 % (3-14); Neutrophils Absolute Auto 14700 /uL (1500-7000); Neutrophils Percent Auto 87.7 % (50-75); Platelet Count 303 X10^3/uL (150-400); Red Blood Cell Count 3.08 X10^6/uL (4.0-5.2); Red Cell Distribution Width 15.6 % (11.6-14.8); White Blood Cell Count 16.8 X10^3/uL (4.5-11.0)
[2024-02-13 06:36] LABS: Alanine Aminotransferase 18 IU/L (<35); Albumin 2.5 g/dL (3.5-5.0); Alkaline Phosphatase 67 U/L (38-126); Aspartate Aminotransferase 20 IU/L (14-36); BUN Creatinine Ratio 14.7 (6-22); Bilirubin Total 0.4 mg/dL (0.2-1.3); Blood Urea Nitrogen 16 mg/dL (7-17); Calcium 8.5 mg/dL (8.4-10.2); Carbon Dioxide 20 mmol/L (22-32); Chloride 111 mmol/L (98-107); Estimated Glomerular Filt Rate 53 mL/min (>60); Globulin 2.6 g/dL (1.7-4.1); Glucose 71 mg/dL (80-110); HEMOLYSIS < 15 (0-50); Magnesium 1.7 mg/dL (1.6-2.3); Potassium 2.9 mmol/L (3.4-5.1); Sodium 137 mmol/L (137-145); Total Protein 5.1 g/dL (6.3-8.2)
[2024-02-13 07:00] VITALS: O2SAT 93
--- NOTE | 2024-02-13 07:22 | P.PN_ITS ---
Subjective Subjective Interval history: S: She denies any pain, or dyspnea. I did update her on a phone call with the accepting hospitalist at [facility] with [facility] this morning. She was likely to be transferred for ongoing management later today. Her potassium is being repleted, was 2.8 this morning. From previous notes: 78 F admitted with hypercalemia, new bone masses, and pancreatitis. Several episodes of V-tach on the monitor. Discussed with cardiology recommended amiodarone 300 mg IV, with increase to 100 mg BID and increasing metoprolol to 100 mg BID. Episodes are a bit less frequent today. Tolerating a very small amount of clears today, continues to have abdominal pain though it may be slightly better today. Doesn't have any back pain. PICC line was put in on the L side, unable to get to IVC with PPM wires likely. Exam Vital Signs (past 8 hours): - 02/13/24 00:00 02/13/24 00:00 02/13/24 05:03 Temperature 97.6 F 98.6 F Pulse Rate 80 82 Respiratory Rate 18 18 Blood Pressure 122/65 117/64 Pulse Oximetry 95 95 94 Oxygen Delivery Method Nasal Cannula Oxygen Flow Rate 1 1 1 Fraction of Inspired Oxygen 24 SaO2/FiO2 Ratio 408 Oxygen Delivery Method Nasal Cannula Oxygen Flow Rate 1 Narrative Exam Narrative: NAD, alert and oriented. Fluent speech. Lungs are clear, normal rate and effort. Heart is regular, no murmur gallop or rub. Abdomen is soft, non distended. Extremities are free of edema. Objective Labs 02/13/24 06:10 02/13/24 06:10 Labs: Laboratory Results - last 24 hr 02/12/24 02/13/24 06:45 06:10 WBC 16.8 H RBC 3.08 L Hgb 8.6 L Hct 26.1 L MCV 84.8 MCH 28.0 MCHC 33.0 RDW 15.6 H Plt Count 303 Neut % (Auto) 87.7 H Lymph % (Auto) 5.6 L [place] % (Auto) 6.4 Eos % (Auto) 0.1 L Baso % (Auto) 0.2 Neut # (Auto) 07794 H Lymph # (Auto) 900 L [place] # (Auto) 1100 H Eos # (Auto) 0 Baso # (Auto) 0 Sodium 137 Potassium 2.9 L Chloride 111 H Carbon Dioxide 20 L BUN 16 Creatinine 1.09 H Estimated GFR 53 L BUN/Creatinine Ratio 14.7 Glucose 71 L Calcium 8.5 Magnesium 1.7 Total Bilirubin 0.4 AST 20 ALT 18 Alkaline Phosphatase 67 Total Protein 5.1 L Albumin 2.5 L Globulin 2.6 Albumin/Globulin Ratio 1.0 Carcinoembryonic Ag 2.5 [facility] Medical History Rectal prolapse Pelvic congestion syndrome Hiatal hernia 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) Gallstone Profound anemia Positive FIT (fecal immunochemical test) GIB (gastrointestinal bleeding) Diverticulosis Atrial flutter Current use of parts counterman anticoagulation Hyperlipidemia GERD (gastroesophageal reflux disease) Rosacea Heart palpitations (2005) Scoliosis (1961) Obstructive sleep apnea of adult Primary insomnia Snoring (~1995) Surgical History History of esophagogastroduodenoscopy (EGD) (06/18/23) Hx of cholecystectomy (07/27/22) H/O craniotomy History of right cataract surgery (10/29/12) History of left cataract surgery (11/12/12) History of spinal surgery (1961) Family History Father Heart disease Mother Pneumonia Brother No problems noted. Sister No problems noted. Family/Other No problems noted. Family/Other No problems noted. Social History marital status: household members: spouse lives independently: Yes occupational status: previously employed Smoking Status: Never smoker alcohol intake: current substance use type: marijuana Assessment & Plan Assessment & Plan narrative: 1. Hypercalcemia with acute metabolic encephalopathy, improved - given calcitonin IM x1 dose, zolendronic acid x1. - continue IV fluids today. - likely due to combination of dehydration and malignancy - Calcium improved from 15.6 on admit to normal now. Patient's presenting symptoms of confusion / brain fog likely due to elevated Calcium level. 2. Acute pancreatitis, ongoing - previous documentation has said she drinks one glass of wine per day. - she has also previously had cholelithiasis, but had gallbladder removed and previous cystic lesions on pancreas in previous imaging with MRI. Attempted to transfer to [facility] given her complexity, and consideration of pancreas MRI for further evaluation, along with oncology consultation but their beds are currently full. - differential includes alcohol induced, malignancy. - unclear how long it will take as underlying etiology is not certain. PICC line was attempted as there may be a possible need for TPN, but was put in on the L side with PPM wires in place and unable to get to central location. Likely in subclavian. - Amiodarone is a rare cause as well, though patient with several episodes of V-tach yesterday and amiodarone is likely needed for her arrythmia. Consider stopping amiodarone but likely would need urgent cardiology follow up. 3. Multiple lytic bone lesions, present on admission and active. - lytic lesions noted in her R pelvis and 9th R rib. - discussed with orthopedics, no surgical management needed, patient can be WBAT to her R side. - will need urgent outpatient follow up. Patient's saw [facility] oncology and she would like to go there. - consider biopsy of mass if able, though currently is on dabigatran. - unclear if primary bone malignany at this time or metastatic ? from pancreas based on pancreas findings today. Ordered for CEA and CA 19-9. CEA is normal. Consider transfer for MR abdomen given prior cystic lesions noted on abdominal MR. 4. JAZ, present on admission and improved. - lytic lesions noted in her R pelvis and 9th R rib. - continue IV fluids. Cr 1.8 on admit, improved to 1.29 with fluids thus far. Baseline appears to be around 0.6. 5. History of atrial flutter, complete block s/p dual chamber PPM. Present on admission and active. - hold anticoagulation for now - unable to get MRI if needed at [facility] - multiple episodes of vtach on monitor on 02/10. Got 300 mg IV amiodarone, increase oral metoprolol to 100 mg BID and increased amiodarone to 100 mg BID as well after discussing with director of transportation rn building on 02/10. 6. Normocytic anemia. Present on admission and active. 7. Esophageal dysmotility. Present on admission and active. - previous barium swallow showed esophageal dysmotility. Had manometry 1 week ago, not consistent with achalasia per report. No obvious etiology was noted. 8. Hypokalemia, Active. PLAN: -replace potassium -anticipate transfer to [facility] later today for ongoing workup including MRI of pancreas, cardiology consult for ventricular tachycardia, echo, biopsy of pelvic or rib mass, and monitoring of potassium and calcium. Code: Full, surrogate is patient's spouse DVT: on full AC for atrial flutter. I have utilized all available immediate resources to obtain, update, or review the patient's current medications. Dispo: patient admitted under inpatient status. Unclear if will be able to discharge home or possible SNF, will have PT/OT evaluations. Attempted to transfer for possible higher level of care given patient's complexity, will continue to attempt but no beds at [facility]. Patient does not wish to go to [facility]. Reason for transfer at this time is for cardiology consultation, MRI with PPM for ? pancreatic cancer and pancreatitis, and possible oncology workup / biopsy.
[2024-02-13 07:36] LABS: Cancer (Carbohydrate) Ag 19-9 3 U/mL (0-35)
[2024-02-13 08:10] VITALS: BP 106/50; PULSE 76; RESP 24; TEMP 36.9; O2SAT 93
[2024-02-13] MEDS: DABIGATRAN 75 MG CAPSULE 150 MG PO (08:17)
[2024-02-13] MEDS: CHOLECALCIFEROL (VITAMIN D3) 1,000 UNIT TABLET 2000 UNIT PO (08:17)
[2024-02-13] MEDS: polyethylene glycoL 3350 17 GM POWD.PACK PO (08:17)
[2024-02-13 08:19] VITALS: BP 106/50; PULSE 73
[2024-02-13] MEDS: AMIODARONE 200 MG TABLET 100 MG PO (08:19)
[2024-02-13] MEDS: METOPROLOL ER 50 MG TABLET 100 MG PO (08:19)
[2024-02-13 09:00] VITALS: BP 121/66; PULSE 73
[2024-02-13] MEDS: POTASSIUM CHLORIDE IN WATER 10 MEQ/100 ML PIGGYBACK 100 MEQ IV ×3 (09:26→11:50)
--- NOTE | 2024-02-13 10:22 | CM.DPC ---
DCP Cont. Reviewed EMR and team rounds for status updates. Per Hospitalist, pt is pending transfer [facility]. No further DCP needs identified at this time.
--- NOTE | 2024-02-13 11:22 | P.DS_ITS ---
History of Present Illness History of Present Illness Chief complaint: sent by [facility], abnormal labs, ekg Narrative: This is a 78 year old female with PMH of aflutter, complete heart block s/p dual chamber PPM, non-obstructive CAD presenting with a right leg mass. Found to have pelvic bone lesion and soft tissue mass. CT scan also showing a lesion on her R 9th rib. She has had a lot of workup for abdominal pain recently. Her CT abdomen today showed pancreatitis, and her abdominal pain is epigastric radiating to the back. Calcium as 15.6, now improved to 11. Lipase is >4000. She was nauseous and vomited during my visit with her this morning. also reports she had manometry done last week for esophageal dysmotility. I can see that this was done but there are no results reports available as I can access CareEverywhere for her now. Discussed with orthopedic surgery, there is no current management recommended, surgeon did say that patient can weight bear as tolerated. Her cardiac history here is copied from an outpatient cardiology note recently. LV function and a past medical history of obstructive sleep apnea, nonobstructive coronary artery disease, nonsustained VT, typical atrial flutter and 2 prior ablations in 2017 and 2020, paroxysmal A. fib for which she is now on amiodarone since 07/28/2022. The dose has been tapered down and beginning 11/19/2022 amiodarone was reduced to 50 mg daily. Back in June, a 1 week Zio patch plastic extruding machine operator was placed on Brenda looking for the cause of her increased palpitations. Coincidentally while wearing the monitor, 7 episodes of intermittent complete heart block with pauses of 3.5-15.8 seconds were documented. She was syncopal on 1 occasion and so she received a dual-chamber pacemaker on 07/09/2022 and is doing well with that. From Dr. Hassan. Discharge Providers Provider Date of admission: 02/10/24 23:19 Discharge Date: 02/13/24 Primary care physician: SRINIVAS [place] Consults: 02/11/24 01:10 Consult to Dietitian, Adult Routine Comment: Reason For Exam: 10lb weight loss, decreased appetite Discharge provider: Alphonso Chavez MD Summary Hospital Course Discharge Diagnosis: 1. Hypercalcemia with acute metabolic encephalopathy, improved - given calcitonin IM x1 dose, zolendronic acid x1. - continue IV fluids today. - likely due to combination of dehydration and malignancy - Calcium improved from 15.6 on admit to normal now. Patient's presenting symptoms of confusion / brain fog likely due to elevated Calcium level. 2. Acute pancreatitis, ongoing - previous documentation has said she drinks one glass of wine per day. - she has also previously had cholelithiasis, but had gallbladder removed and previous cystic lesions on pancreas in previous imaging with MRI. Attempted to transfer to [facility] given her complexity, and consideration of pancreas MRI for further evaluation, along with oncology consultation but their beds are currently full. - differential includes alcohol induced, malignancy. - unclear how long it will take as underlying etiology is not certain. PICC line was attempted as there may be a possible need for TPN, but was put in on the L side with PPM wires in place and unable to get to central location. Likely in subclavian. - Amiodarone is a rare cause as well, though patient with several episodes of V-tach yesterday and amiodarone is likely needed for her arrythmia. Consider stopping amiodarone but likely would need urgent cardiology follow up. 3. Multiple lytic bone lesions, present on admission and active. - lytic lesions noted in her R pelvis and 9th R rib. - discussed with orthopedics, no surgical management needed, patient can be WBAT to her R side. - will need urgent outpatient follow up. Patient's saw [facility] oncology and she would like to go there. - consider biopsy of mass if able, though currently is on dabigatran. - unclear if primary bone malignany at this time or metastatic ? from pancreas based on pancreas findings today. Ordered for CEA and CA 19-9. CEA is normal. Consider transfer for MR abdomen given prior cystic lesions noted on abdominal MR. 4. JAZ, present on admission and improved. - lytic lesions noted in her R pelvis and 9th R rib. - continue IV fluids. Cr 1.8 on admit, improved to 1.29 with fluids thus far. Baseline appears to be around 0.6. 5. History of atrial flutter, complete block s/p dual chamber PPM. Present on admission and active. - hold anticoagulation for now - unable to get MRI if needed at [facility] - multiple episodes of vtach on monitor on 02/10. Got 300 mg IV amiodarone, increase oral metoprolol to 100 mg BID and increased amiodarone to 100 mg BID as well after discussing with electronic transaction implementer administrative assistant front desk on 02/10. 6. Normocytic anemia. Present on admission and active. 7. Esophageal dysmotility. Present on admission and active. - previous barium swallow showed esophageal dysmotility. Had manometry 1 week ago, not consistent with achalasia per report. No obvious etiology was noted. 8. Hypokalemia, Active. Hospital Course: She was admitted with right gluteal pain. Imaging confirmed a pelvic bony mass. The patient was also found to have a creatinine of 1.8 as well as a calcium of 14.6. CT of the pelvis revealed a destructive osseous lesion in the right iliac bone extending to the sacrum. Further imaging indicated a right 9th rib lesion. The patient was treated medically with calcitonin and zoledronic acid as well as IV fluids and her calcium corrected. She did have multiple short runs of nonsustained VT and case was discussed with Cardiology at [facility]. Amiodarone 150 IV was given and she was placed on 100 b.i.d.. The patient was also diagnosed with pancreatitis based on imaging and a lipase of over 4000. This was treated with bowel rest and she had advanced a clear liquids at time of transfer. She was still having a significant amount of persistent epigastric abdominal pain. The patient usually sees Dr. Atkins in Cardiology and his a history of a pacemaker for complete heart block. Orthopedics was consulted and recommended transferring to a center with Orthopedic Oncology, as well as the ability to obtain biopsies with Interventional Radiology. Nephrology also reviewed the case and recommended IV fluids, calcitonin and zoledronic acid as outlined above. The patient had good pain control [facility] All images were transferred and they are willing to accept her. She would initial JAZ improved with IV fluids, creatinine of 1.8 was at 1.09 in the day of transfer. Status at Discharge Cognitive/behavioral status at discharge: oriented Functional status at discharge: uses cane/walker Overall status at discharge: patient is progressing back to baseline Time Spent with Patient Time spent: Greater than 30 minutes Exam Vital Signs (past 8 hours): - 02/13/24 05:03 02/13/24 07:00 02/13/24 07:00 Temperature 98.6 F Pulse Rate 82 Respiratory Rate 18 Blood Pressure 117/64 Pulse Oximetry 94 93 Oxygen Delivery Method Nasal Cannula Nasal Cannula Oxygen Flow Rate 1 1 02/13/24 08:10 02/13/24 08:19 02/13/24 09:00 Temperature 98.4 F Pulse Rate 76 73 73 Respiratory Rate 24 Blood Pressure 106/50 L 106/50 L 121/66 Pulse Oximetry 93 Oxygen Delivery Method Oxygen Flow Rate Fraction of Inspired Oxygen 24 SaO2/FiO2 Ratio 408 Oxygen Delivery Method Nasal Cannula Oxygen Flow Rate 1 Narrative Exam Narrative: NAD, alert and oriented. Fluent speech. Lungs are clear, normal rate and effort. Heart is regular, no murmur gallop or rub. Abdomen is soft, non distended. Extremities are free of edema. Objective Imaging Multiple studies:: My impression: CXR: Left upper extremity approach PICC tip projects over the peripheral innominate vein. Recommend advancement. Chest Abdomen CT: Acute pancreatitis. Unclear if interstitial or necrotic based on lack of intravenous contrast. Expansile bony mass over the right 9th rib measuring 1.5 x 2.4 cm. No primary identified. Bibasilar reticulation, concerning for interstitial lung disease. Recommend pulmonology referral. Pelvis CT: Significantly destructive osseous lesion with large soft tissue component within the posterior right iliac bone extending to significant portions of the sacrum. Overall finding is highly suspicious for malignancy. Ext. US: PROCEDURE: US EXTREMITY NONVASC LOWER RT INDICATIONS: right buttock swelling TECHNIQUE: Real-time scanning was performed of the right buttock , with image documentation. COMPARISON: None. FINDINGS: Targeted ultrasound of the right buttock demonstrates no sonographic abnormality. IMPRESSION: No sonographic abnormality. No abscess. Old Ba swallow (12/23/23): FINDINGS: Function: No aspiration with liquid barium. There is weakened esophageal peristalsis, resulting in tertiary contractions. No elicited gastroesophageal reflux. Morphology: Single contrast views show no esophageal strictures, extrinsic mass effects, or diverticula. Limited images of the stomach demonstrate normal appearance. IMPRESSION: Severe esophageal dysmotility. Labs 02/13/24 06:10 02/13/24 06:10 Labs: Laboratory Results - last 24 hr 02/11/24 02/13/24 11:10 06:10 WBC 16.8 H RBC 3.08 L Hgb 8.6 L Hct 26.1 L MCV 84.8 MCH 28.0 MCHC 33.0 RDW 15.6 H Plt Count 303 Neut % (Auto) 87.7 H Lymph % (Auto) 5.6 L [place] % (Auto) 6.4 Eos % (Auto) 0.1 L Baso % (Auto) 0.2 Neut # (Auto) 54965 H Lymph # (Auto) 900 L [place] # (Auto) 1100 H Eos # (Auto) 0 Baso # (Auto) 0 Sodium 137 Potassium 2.9 L Chloride 111 H Carbon Dioxide 20 L BUN 16 Creatinine 1.09 H Estimated GFR 53 L BUN/Creatinine Ratio 14.7 Glucose 71 L Calcium 8.5 Magnesium 1.7 Total Bilirubin 0.4 AST 20 ALT 18 Alkaline Phosphatase 67 Total Protein 5.1 L Albumin 2.5 L Globulin 2.6 Albumin/Globulin Ratio 1.0 CA 19-9 Antigen 3 PFSH Medical History Rectal prolapse Pelvic congestion syndrome Hiatal hernia 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) Gallstone Profound anemia Positive FIT (fecal immunochemical test) GIB (gastrointestinal bleeding) Diverticulosis Atrial flutter Current use of longwall machine operator helper anticoagulation Hyperlipidemia GERD (gastroesophageal reflux disease) Rosacea Heart palpitations (2005) Scoliosis (1961) Obstructive sleep apnea of adult Primary insomnia Snoring (~1995) Surgical History History of esophagogastroduodenoscopy (EGD) (06/18/23) Hx of cholecystectomy (07/27/22) H/O craniotomy History of right cataract surgery (10/29/12) History of left cataract surgery (11/12/12) History of spinal surgery (1961) Family History Father Heart disease Mother Pneumonia Brother No problems noted. Sister No problems noted. Family/Other No problems noted. Family/Other No problems noted. Social History marital status: household members: spouse lives independently: Yes occupational status: previously employed Smoking Status: Never smoker alcohol intake: current substance use type: marijuana Discharge Plan Discharge Plan Patient Disposition: General Acute Hospital Other facility: [facility] Under care of provider: Dr. Rivera Provider Discharge Comment: Stable for transfer to [facility]. Discharge orders & Medications Medication counseling provided by Pharmacist: No Discharge Health Status Multidrug resistant organism: No MDRO Diet/Activity/Treatments Diet: Clear Liquid Discharge Data Primary Care Provider: Jessica Dobbs
== END 2024-02-13 12:25 | disposition short-term general hospital (02) | DRG 640 ==
LOC: ED 17:50 → AC 23:20
PROVIDERS: Internal Medicine; Admitting Provider Internal Medicine; Emergency Provider Emergency Medicine; PCP Nurse Practitioner; Referring Provider Emergency Medicine; Visit Provider Internal Medicine
DX: E83.52 Hypercalcemia (principal); E43 Unspecified severe protein-calorie malnutrition; G93.41 Metabolic encephalopathy; K85.90 Acute pancreatitis without necrosis or infection, unspecified; N17.9 Acute kidney failure, unspecified; I47.20 Ventricular tachycardia, unspecified; I48.91 Unspecified atrial fibrillation; G47.00 Insomnia, unspecified; K59.00 Constipation, unspecified; I25.10 Atherosclerotic heart disease of native coronary artery without angina pectoris; E86.0 Dehydration; D64.9 Anemia, unspecified; K22.89 Other specified disease of esophagus; E87.6 Hypokalemia; G47.33 Obstructive sleep apnea (adult) (pediatric); D49.2 Neoplasm of unspecified behavior of bone, soft tissue, and skin; I45.10 Unspecified right bundle-branch block; Z68.20 Body mass index [BMI] 20.0-20.9, adult; Z95.0 Presence of cardiac pacemaker; Z79.01 Long term (current) use of anticoagulants
CPT/HCPCS: 36415; 36569; 36592; 71250; 72192; 74150; 76882; 80048; 80053; 82310; 82378; 83690; 83735; 83880; 84100; 85025; 85610; 86301; 93005; 94760; 96372; 96374; 96375; 99284; 99291; J0282; J0630; J1170; J1642; J2185; J2270; J2405; J2765; J3489

== ENCOUNTER 2024-04-01 17:37 | Emergency (ER) | payer OTHER, SELFPAY ==
[2024-03-25 11:03] VITALS: BMI 20.5
[2024-04-01 17:52] VITALS: BP 133/72; PULSE 73; RESP 16; TEMP 37.1; O2SAT 96; BMI 19.7
--- NOTE | 2024-04-01 18:03 | EKG_ITS ---
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
[2024-04-01 18:49] LABS: Hematocrit 28.7 % (36-46); Hemoglobin 9.3 g/dL (12.0-16.0); Mean Corpuscular HGB Conc 32.2 % (30-36); Mean Corpuscular Hemoglobin 27.7 PG (26-34); Platelet Count 354 X10^3/uL (150-400); Red Blood Cell Count 3.34 X10^6/uL (4.0-5.2); Red Cell Distribution Width 17.6 % (11.6-14.8); White Blood Cell Count 13.9 X10^3/uL (4.5-11.0)
[2024-04-01 18:50] LABS: Add Manual Diff / Slide Review YES
[2024-04-01 19:01] LABS: Anisocytosis 1+; Neutrophils Absolute Manual 10008 /uL (3000-5900); Total Cells Counted 100
[2024-04-01 19:04] VITALS: PULSE 66; RESP 19; O2SAT 97
[2024-04-01 19:14] LABS: Alanine Aminotransferase 16 IU/L (<35); Albumin 3.7 g/dL (3.5-5.0); Albumin Globulin Ratio 1.4 (1.0-2.8); Alkaline Phosphatase 69 U/L (38-126); Aspartate Aminotransferase 21 IU/L (14-36); BUN Creatinine Ratio 13.2 (6-22); Bilirubin Total 0.3 mg/dL (0.2-1.3); Blood Urea Nitrogen 10 mg/dL (7-17); Calcium 8.9 mg/dL (8.4-10.2); Carbon Dioxide 28 mmol/L (22-32); Chloride 104 mmol/L (98-107); Estimated Glomerular Filt Rate > 60 mL/min (>60); Globulin 2.6 g/dL (1.7-4.1); Glucose 139 mg/dL (80-110); HEMOLYSIS < 15 (0-50); Lipase 35 U/L (23-300); Potassium 3.8 mmol/L (3.4-5.1); Sodium 137 mmol/L (137-145); Total Protein 6.3 g/dL (6.3-8.2)
== END 2024-04-01 19:52 | disposition left against medical advice (07) ==
PROVIDERS: Emergency Medicine; Emergency Provider Emergency Medicine; PCP Nurse Practitioner
DX: R10.9 Unspecified abdominal pain (principal); I45.10 Unspecified right bundle-branch block
CPT/HCPCS: 36415; 80053; 81003; 83690; 85007; 85025; 93005; 99283

== ENCOUNTER → 2025-04-29 12:08 | Outpatient (CLI) | payer OTHER, SELFPAY ==
[2024-03-25 11:03] VITALS: BMI 20.5
--- NOTE | 2025-04-29 12:10 | DI.RAD.S_ITS ---
PROCEDURE: XR DEXA AXIAL SKELETON INDICATIONS: screening COMPARISON: [facility], CR, XR DEXA AXIAL SKELETON, 11/29/2022, 11:55. FINDINGS: Left Femoral Neck: Bone mineral density 0.745 (previously 0.809) g/cm2, T score -0.9 (previously -0.4). Left Hip: Bone mineral density 0.832 (previously 0.822) g/cm2, T score -0.9 (previously -1.0). Left Forearm: Bone mineral density 0.619 (previously 0.627) g/cm2, T score -1.3 (previously -1.1). Fracture Risk Calculation (when applicable): 10-year fracture risk of a major osteoporotic fracture 8.8 percent and of a hip fracture 1.6 percent. (T score greater or equal to -1.0 to: NORMAL) (T score from -1.1 to -2.4: OSTEOPENIA) (T score less than or equal to -2.5: OSTEOPOROSIS) IMPRESSION: Osteopenia--- recommend repeat DEXA in 2-3 years for reassessment. Follow-up guidelines as follows: Osteoporosis: Consider a repeat DEXA and Vertebral Fracture Assessment (VFA) exam in 2 years or sooner if medically necessary, to reassess this patient's status. Osteopenia: Consider a repeat DEXA in 2-3 years to reassess this patient's status, or if there is a new clinical indication. Normal: Consider a repeat DEXA in 5 years or sooner, or if there is a new clinical indication. All treatment decisions require clinical judgment and consideration of individual patient factors, including patient preferences, comorbidities, previous drug use, risk factors not captured in the FRAX model (e.g., frailty, falls, vitamin D deficiency, increased bone turnover, interval significant decline in bone density ) and possible under- or over-estimation of fracture risk by FRAX. In addition, the NOF Guide recommends that FDA-approved medical therapies be considered in postmenopausal women and men age >= 50 years with a: * Hip or vertebral (clinical or morphometric) fracture * T-score of <=-2.5 at the spine or hip * Ten-year fracture probability by FRAX of >= 3% for hip fracture or >=20% for major osteoporotic fracture. Dictated by: Chung Velasquez M.D. on 04/29/2025 at 20:21 Approved by: Chung Velasquez M.D. on 04/29/2025 at 20:25
== END ==
LOC: RAD 12:09
PROVIDERS: Family Provider Family Medicine; PCP Family Medicine; Referring Provider Family Medicine; Visit Provider Family Medicine
DX: M85.89 Other specified disorders of bone density and structure, multiple sites (principal)
CPT/HCPCS: 77080

== ENCOUNTER → 2025-05-28 09:51 | Outpatient (CLI) | payer OTHER, SELFPAY ==
[2024-03-25 11:03] VITALS: BMI 20.5
--- NOTE | 2025-05-28 09:52 | DI.RAD.S_ITS ---
PROCEDURE: XR HIP W PEL IF DONE RT 2V INDICATIONS: right hip pain TECHNIQUE: 2 views of the hip were acquired. COMPARISON: None. FINDINGS: Bones: No fractures or dislocations. No suspicious bony lesions. The visualized pelvic ring appears intact. Moderate bilateral hip joint space narrowing and small marginal osteophytes Soft tissues: No suspicious soft tissue calcifications or masses. IMPRESSION: Moderate bilateral hip arthritic changes Approved by: Vinod Cheung M.D. on 05/28/2025 at 18:13
== END ==
PROVIDERS: Family Provider Family Medicine; PCP Family Medicine; Referring Provider Family Medicine; Visit Provider Family Medicine
DX: M25.551 Pain in right hip (principal); M25.751 Osteophyte, right hip
CPT/HCPCS: 73502

== ENCOUNTER → 2025-06-23 10:35 | Outpatient (CLI) | payer OTHER, SELFPAY ==
[2024-03-25 11:03] VITALS: BMI 20.5
[2025-06-23 12:08] LABS: Add Manual Diff / Slide Review NO; Hematocrit 39.6 % (36-46); Hemoglobin 12.9 g/dL (12.0-16.0); Lymphocytes Absolute Auto 1400 /uL (1100-4500); Mean Corpuscular HGB Conc 32.7 % (30-36); Mean Corpuscular Hemoglobin 29.0 PG (26-34); Mean Corpuscular Volume 88.8 fL (80-100); Platelet Count 199 X10^3/uL (150-400)
[2025-06-23 12:18] LABS: Hemoglobin A1C% w Est Avg Glu 5.8 % (4.0-6.0)
[2025-06-23 12:19] LABS: HEMOLYSIS < 15 (0-50); Iron 65 ug/dL (37-170)
[2025-06-23 12:21] LABS: Alanine Aminotransferase 24 IU/L (<35); Albumin 4.5 g/dL (3.5-5.0); Albumin Globulin Ratio 2.0 (1.0-2.8); Alkaline Phosphatase 55 U/L (38-126); Blood Urea Nitrogen 19 mg/dL (7-17); Carbon Dioxide 27 mmol/L (22-32); Chloride 102 mmol/L (98-107); Estimated Glomerular Filt Rate > 60 mL/min (>60); Globulin 2.3 g/dL (1.7-4.1); HEMOLYSIS < 15 (0-50); Lipase 53 U/L (23-300); Potassium 4.2 mmol/L (3.4-5.1); Sodium 139 mmol/L (137-145); Total Protein 6.8 g/dL (6.3-8.2)
[2025-06-23 12:52] LABS: Calcium 9.5 mg/dL (8.4-10.2); Glucose 111 mg/dL (70-99)
[2025-06-23 12:55] LABS: Percent Iron Saturation 17 % (15-50); Total Iron Binding Capacity 392 ug/dL (265-497); Transferrin 340 mg/dL (206-381)
[2025-06-23 14:36] LABS: Ferritin 13 ng/mL (11-264)
== END ==
PROVIDERS: PCP Family Medicine; Referring Provider Family Medicine; Visit Provider Family Medicine
DX: D64.9 Anemia, unspecified (principal); R73.01 Impaired fasting glucose; C82.30 Follicular lymphoma grade IIIa, unspecified site; E78.00 Pure hypercholesterolemia, unspecified
CPT/HCPCS: 36415; 80053; 82728; 83036; 83540; 83550; 83690; 85025